=== PATIENT | male | born 1940 | race Caucasian/White ===

== ENCOUNTER → 2017-12-11 17:08 | Outpatient (CLI) | payer MEDICARE, OTHER, SELFPAY ==
[2017-12-11 17:47] LABS: Add Manual Diff / Slide Review NO; Basophils Percent Auto 1.3 % (0-2); Eosinophils Percent Auto 6.9 % (2-4); Hematocrit 43.2 % (41-53); Hemoglobin 14.6 g/dL (13.5-17.5); Lymphocytes Percent Auto 27.9 % (25-40); Mean Corpuscular HGB Conc 33.8 % (30-36); Mean Corpuscular Hemoglobin 28.6 PG (26-34); Mean Corpuscular Volume 84.6 fL (80-100); Monocytes Percent Auto 7.6 % (3-14); Neutrophils Absolute Auto 3700 /uL (3000-5900); Neutrophils Percent Auto 56.3 % (50-75); Platelet Count 195 X10^3/uL (150-400); Red Blood Cell Count 5.11 X10^6/uL (4.5-5.9); White Blood Cell Count 6.6 X10^3/uL (4.5-11.0)
[2017-12-11 18:03] LABS: Alanine Aminotransferase 26 IU/L (21-72); Albumin 3.8 g/dL (3.5-5.0); Albumin Globulin Ratio 1.1 (1.0-2.8); Alkaline Phosphatase 77 U/L (38-126); Aspartate Aminotransferase 17 IU/L (17-59); Bilirubin Total 0.4 mg/dL (0.2-1.3); Blood Urea Nitrogen 21 mg/dL (9-20); Calcium 8.9 mg/dL (8.4-10.2); Carbon Dioxide 29 mmol/L (22-32); Chloride 103 mmol/L (98-107); Estimated Glomerular Filt Rate > 60.0 mL/min (>60); Globulin 3.4 g/dL (1.7-4.1); Glucose 82 mg/dL (80-110); HEMOLYSIS < 15 (0-50); Potassium 4.7 mmol/L (3.4-5.1); Sodium 140 mmol/L (137-145); Total Protein 7.2 g/dL (6.3-8.2)
[2017-12-11 18:31] LABS: TSH w/ Reflex to FT4 1.38 uIU/mL (0.47-4.68)
[2017-12-13 20:41] LABS: 18 kD IgG Band Nonreactive; 23 kD IgG Band Nonreactive; 28 kD IgG Band Nonreactive; 30 kD IgG Band Nonreactive; 39 kD IgG Band Nonreactive; 41 kD IgG Bands Reactive; 45 kD IgG Band Nonreactive; 58 kD IgG Band Nonreactive; 66 kD IgG Band Reactive; 93 kD IgG Bands Nonreactive
== END ==
PROVIDERS: Family Provider Family Medicine; PCP Family Medicine; Visit Provider Family Medicine
DX: R53.83 Other fatigue (principal); W57.XXXA Bitten or stung by nonvenomous insect and other nonvenomous arthropods, initial encounter
CPT/HCPCS: 36415; 80053; 84443; 85025; 86618

== ENCOUNTER 2018-08-14 14:31 | Inpatient (IN) | payer MEDICARE, OTHER, SELFPAY ==
[2018-08-14 14:46] VITALS: BP 106/55; PULSE 65; RESP 15; TEMP 36.7; O2SAT 100; BMI 24.1
--- NOTE | 2018-08-14 14:59 | DI.CT.S_ITS ---
PROCEDURE: CT HEAD/BRAIN WO CON INDICATIONS: confusion for 1 week TECHNIQUE: Noncontrast 4.5 mm thick angled axial sections acquired from the foramen magnum to the vertex, with coronal and sagittal reformats. For radiation dose reduction, the following was used: automated exposure control, adjustment of mA and/or kV according to patient size. COMPARISON: [facility], CT, HEAD WITHOUT CONTRAST, 03/05/2013, 13:07. FINDINGS: Image quality: Excellent. CSF spaces: Basal cisterns are patent. No extra-axial fluid collections. Ventricles are normal in size and shape. Brain: No midline shift. No intracranial masses or hemorrhage. [place]-white matter interface is normal except in the right temporal region where a region of low attenuation that is ovoid can be seen measuring up to 5.8 cm AP, 3.1 cm transverse and 3.6 cm craniocaudad, quite sharply demarcated. Skull and face: Calvarium and visualized facial bones are intact, without suspicious lesions. Sinuses: Visualized sinuses and mastoids are clear. 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 Dictated by: Sampson Noel M.D. on 08/14/2018 at 15:19 Approved by: Sampson Noel M.D. on 08/14/2018 at 15:28
[2018-08-14 15:30] LABS: Bacteria Urine None Seen; WBC Urine None Seen (0-5/HPF)
[2018-08-14 15:49] LABS: Amorphous Sediment Urine 1+; Culture Indicated Urine Cult Not Indicated; RBC Urine 1-5/HPF (0-5/HPF)
[2018-08-14 15:59] VITALS: BP 114/51; PULSE 58; RESP 16; O2SAT 100
[2018-08-14] MEDS: ASPIRIN 81 MG TAB 324 MG PO (16:00)
[2018-08-14 16:03] LABS: Add Manual Diff / Slide Review NO; Basophils Absolute Auto 0 /uL (0-100); Basophils Percent Auto 0.5 % (0-2); Eosinophils Absolute Auto 100 /uL (0-450); Eosinophils Percent Auto 1.2 % (2-4); Hematocrit 34.6 % (41-53); Hemoglobin 11.3 g/dL (13.5-17.5); Lymphocytes Absolute Auto 1300 /uL (1100-4500); Lymphocytes Percent Auto 15.3 % (25-40); Mean Corpuscular HGB Conc 32.6 % (30-36); Mean Corpuscular Hemoglobin 26.5 PG (26-34); Mean Corpuscular Volume 81.1 fL (80-100); Monocytes Absolute Auto 800 /uL (0-900); Monocytes Percent Auto 9.7 % (3-14); Neutrophils Absolute Auto 6100 /uL (1500-7000); Neutrophils Percent Auto 73.3 % (50-75); Platelet Count 193 X10^3/uL (150-400); Red Blood Cell Count 4.26 X10^6/uL (4.5-5.9); Red Cell Distribution Width 14.1 % (11.6-14.8); White Blood Cell Count 8.4 X10^3/uL (4.5-11.0)
[2018-08-14 16:03] LABS: Urine Amphetamines Negative (Negative); Urine Barbiturates Negative (Negative); Urine Benzodiazepines Negative (Negative); Urine Cocaine Negative (Negative); Urine MDMA Negative (Negative); Urine Methadone Negative (Negative); Urine Methamphetamines Negative (Negative); Urine Morphine/Opi cutoff 2000 Negative (Negative); Urine Oxycodone Negative (Negative); Urine Phencyclidine Negative (Negative); Urine Tetrahydrocannabinol Negative (Negative); Urine Tricyclic Antidepressant Negative (Negative)
[2018-08-14 16:09] LABS: INR 1.1 (0.9-1.3); Prothrombin Time 13.1 SECONDS (10.1-12.7)
--- NOTE | 2018-08-14 16:11 | ED.NEUROSD ---
HPI - Neuro Symptoms/Deficit General Chief Complaint: Neuro Symptoms/Deficit Stated Complaint: Headaches x1 week Time Seen by Provider: 08/14/18 15:35 Source: patient and family Mode of arrival: ambulatory Limitations: no limitations History of Present Illness HPI Narrative: patient is a 78-year-old male who presents by his with a week's worth of headaches. She has noticed some strange behavior. He stares off into space without blinking. He has had some erratically driving which is extremely unusual. She has not noticed any slurring of speech facial drooping difficulty walking or extremity weakness. He has not had fever he has been chilled but he has been chilled for number of months. No other symptoms. His states that this is extremely abnormal behavior for him. patient has no complaints saying he was brought here against his will. Although he is cooperative for exam and answers questions. On Anticoagulants: No Related Data Home Medications Medication Instructions Recorded Confirmed aspirin 243 mg PO BEDTIME #30 tab 02/06/16 08/14/18 fluticasone 1 spray INTRANASAL DAILY #0 05/20/17 08/14/18 lisinopril 20 mg tablet 20 mg PO DAILY 12/04/17 08/14/18 Ventolin HFA 1 puff INH Q4HP PRN 08/14/18 08/14/18 albuterol sulfate 1 puff INHALATION PRN PRN 08/14/18 08/14/18 ibuprofen 1 dose PO PRN PRN 08/14/18 08/14/18 montelukast [Singulair] 10 mg PO DAILY 08/14/18 08/14/18 Allergies Allergy/AdvReac Type Severity Reaction Status Date / Time morphine Allergy Severe TRIGGERS Verified 08/14/18 14:46 INSULIN PRODUCTION azithromycin Allergy Mild N/V Verified 08/14/18 14:46 cefuroxime Allergy Mild N/V Verified 08/14/18 14:46 etodolac Allergy Mild N/V Verified 08/14/18 14:46 Penicillins Allergy Mild N/V Verified 08/14/18 14:46 piroxicam Allergy Mild N/V Verified 08/14/18 14:46 CLASS: 28:04 - General Allergy Unknown SLOW Uncoded 12/04/17 11:19 Anesthetics RECOVERY Review of Systems Review of Systems ROS Unobtainable: All systems reviewed & are unremarkable except as noted in HPI and below Constitutional Denies chills, Denies fever(s), Denies lethargy and Denies weakness Cardiovascular Denies chest pain, Denies irregular heart rhythm, Denies lightheadedness, Denies palpitations, Denies dyspnea, Denies dyspnea on exertion and Denies orthopnea Respiratory Denies cough, Denies dyspnea, Denies dyspnea on exertion and Denies wheezing Gastrointestinal Gastrointestinal: Denies abdominal pain, Denies change in bowel habits, Denies diarrhea, Denies nausea and Denies vomiting Musculoskeletal Denies back pain, Denies muscle weakness, Denies numbness and Denies tingling Integumentary/Breasts Denies pruritus, Denies erythema, Denies rash and Denies wounds Neurologic Reports as per HPI, Reports behavioral changes, Denies numbness, Denies tingling and Denies weakness Psychiatric Reports behavioral changes Endocrine Denies palpitations Allergic/Immunologic Denies wheezing [facility] Medical History Essential hypertension (Chronic) Benign non-nodular prostatic hyperplasia without lower urinary tract symptoms (Chronic 05/02/15) Gastroesophageal reflux disease without esophagitis (Chronic 05/02/15) Simple chronic bronchitis (Chronic 05/02/15) Dysphagia (Chronic 10/16/15) Neck pain (Chronic 10/16/15) Erectile dysfunction (Chronic 03/14/17) Nonrheumatic aortic valve insufficiency (Chronic 03/14/17) Pure hypercholesterolemia (Chronic 03/14/17) Surgical History History of lithotripsy Status post rhinoplasty Status post rotator cuff repair Status post transurethral resection of prostate Family History Brother Age: 69 Crohn's disease without complication, unspecified gastrointestinal tract location Sister Age: 81 Cancer Sister Age: 80 Cancer Social History Smoking Status: Former smoker Family History Brother Age: 69 Crohn's disease without complication, unspecified gastrointestinal tract location Sister Age: 81 Cancer Sister Age: 80 Cancer Social History Smoking Status: Former smoker Exam Initial Vital Signs Initial Vital Signs: Vital Signs Temperature 98.1 F 08/14/18 14:46 Pulse Rate 65 08/14/18 14:46 Respiratory Rate 15 08/14/18 14:46 Blood Pressure 106/55 L 08/14/18 14:46 Pulse Oximetry 100 08/14/18 14:46 Const General: cooperative and well developed Nutritional Appearance: well nourished Orientation: alert, awake, oriented x3 and not confused [facility] Head: normal to inspection Eyes General: appearance normal, both eyes and all related structures Neck Neck: normal visual inspection, trachea midline, No lymphadenopathy, No midline deformity and No JVD Lymphatic: No lymphedema Chest Chest: normal inspection of the chest Resp Effort & Inspection: normal respiratory effort Cardio Rate: regular rate Rhythm: regular rhythm Heart Sounds: S1 normal and S2 normal GI Inspection: non-distended Palpation: soft, no hepatosplenomegaly, No guarding, No pulsatile mass and No tender Auscultation: normal bowel sounds Skin General: no rashes or lesions noted, No jaundice and No petechiae Neuro General: alert, oriented x3, gait normal and no focal motor deficits Speech: speech normal Scores NIH Stroke Scale Level of Conciousness: Alert, keenly responsive Ask month/age: Answers both questions correctly. Open/close eyes, close hand: Performs both tasks correctly Best gaze horizontal: Normal Visual mendiola: No visual loss Facial palsy: Normal symetrical movement Left arm drift: No drift for full 10 sec Right arm drift: No drift for full 10 sec Left leg drift: No drift for full 10 sec Right leg drift: No drift for full 10 sec Limb ataxia: Absent Sensory on face/arms/legs: Normal, no sensory loss Best language: No aphasia, normal Dysarthria: Normal Extinction or inattention: No abnormality Total NIH Stroke scale score: 0 Course Orders Ordered: ED Orders 08/14/18 14:59 CT head/brain wo con Stat 08/14/18 15:03 Urine Microscopic Stat 08/14/18 15:35 EKG-12 Lead Stat 08/14/18 15:56 Complete Blood Count AUTO DIFF Stat Comprehensive Metabolic Panel Stat Partial Thromboplastin Time Stat Prothrombin Time INR Stat 08/14/18 15:57 Urine Drug Screen, Rapid Stat Sodium Chloride (Normal Saline 0.9%) 1,000 mls @ 150 mls/hr IV CONT ELIJAH Last Admin: 08/14/18 17:13 Dose: 150 mls/hr Discontinued Medications Aspirin (Aspirin Chew) 324 mg PO NOW ONE Stop: 08/14/18 17:56 Last Admin: 08/14/18 16:00 Dose: 324 mg Vital Signs - 8 hr 08/14/18 14:46 08/14/18 15:59 08/14/18 17:23 Temperature 98.1 F Pulse Rate 65 58 L 59 L Respiratory Rate 15 16 13 Blood Pressure 106/55 L 107/52 L Blood Pressure [Right Arm] 114/51 L Pulse Oximetry 100 100 100 08/14/18 18:55 Temperature 97.3 F L Pulse Rate 55 L Respiratory Rate 18 Blood Pressure 126/52 L Blood Pressure [Right Arm] Pulse Oximetry 97 MDM - Neuro Symptoms/Deficit Lab Data Attestation: I reviewed the patient's lab results. Result diagrams: 08/14/18 15:56 08/14/18 15:56 Lab Results 08/14/18 08/14/18 08/14/18 Range/Units 15:03 15:56 15:56 WBC 8.4 (4.5-11.0) X10^3/uL RBC 4.26 L (4.5-5.9) X10^6/uL Hgb 11.3 L (13.5-17.5) g/dL Hct 34.6 L (41-53) % MCV 81.1 (80-100) fL MCH 26.5 (26-34) PG MCHC 32.6 (30-36) % RDW 14.1 (11.6-14.8) % Plt Count 193 (150-400) X10^3/uL Neut % (Auto) 73.3 (50-75) % Lymph % (Auto) 15.3 L (25-40) % [place] % (Auto) 9.7 (3-14) % Eos % (Auto) 1.2 L (2-4) % Baso % (Auto) 0.5 (0-2) % Neut # (Auto) 6100 (6264-5371) /uL Lymph # (Auto) 1300 (5831-7962) /uL [place] # (Auto) 800 (0-900) /uL Eos # (Auto) 100 (0-450) /uL Baso # (Auto) 0 (0-100) /uL PT 13.1 H (10.1-12.7) SECONDS INR 1.1 (0.9-1.3) APTT 35 (26.4-36.2) SECONDS Sodium (137-145) mmol/L Potassium (3.4-5.1) mmol/L Chloride (98-107) mmol/L Carbon Dioxide (22-32) mmol/L BUN (9-20) mg/dL Creatinine (0.66-1.25) mg/dL Estimated GFR (>60) mL/min BUN/Creatinine Ratio (6-22) Glucose (80-110) mg/dL Calcium (8.4-10.2) mg/dL Total Bilirubin (0.2-1.3) mg/dL AST (17-59) IU/L ALT (21-72) IU/L Alkaline Phosphatase (38-126) U/L Total Protein (6.3-8.2) g/dL Albumin (3.5-5.0) g/dL Globulin (1.7-4.1) g/dL Albumin/Globulin Ratio (1.0-2.8) Urine RBC 1-5/hpf (0-5/HPF) Urine WBC None seen (0-5/HPF) Amorphous Sediment 1+ Urine Bacteria None seen (None) Ur Culture Indicated? Cult not indicated Urine Opiates Screen (Negative) Ur Oxycodone Screen (Negative) Urine Methadone Screen (Negative) Ur Barbiturates Screen (Negative) U Tricyclic Antidepress (Negative) Ur Phencyclidine Scrn (Negative) Ur Amphetamines Screen (Negative) U Methamphetamines Scrn (Negative) Ur MDMA Scrn (Ecstasy) (Negative) U Benzodiazepines Scrn (Negative) Urine Cocaine Screen (Negative) U Marijuana (THC) Screen (Negative) 08/14/18 08/14/18 Range/Units 15:56 15:57 WBC (4.5-11.0) X10^3/uL RBC (4.5-5.9) X10^6/uL Hgb (13.5-17.5) g/dL Hct (41-53) % MCV (80-100) fL MCH (26-34) PG MCHC (30-36) % RDW (11.6-14.8) % Plt Count (150-400) X10^3/uL Neut % (Auto) (50-75) % Lymph % (Auto) (25-40) % [place] % (Auto) (3-14) % Eos % (Auto) (2-4) % Baso % (Auto) (0-2) % Neut # (Auto) (5397-5972) /uL Lymph # (Auto) (5564-8393) /uL [place] # (Auto) (0-900) /uL Eos # (Auto) (0-450) /uL Baso # (Auto) (0-100) /uL PT (10.1-12.7) SECONDS INR (0.9-1.3) APTT (26.4-36.2) SECONDS Sodium 134 L (137-145) mmol/L Potassium 4.5 (3.4-5.1) mmol/L Chloride 101 (98-107) mmol/L Carbon Dioxide 26 (22-32) mmol/L BUN 26 H (9-20) mg/dL Creatinine 1.20 (0.66-1.25) mg/dL Estimated GFR 58.6 L (>60) mL/min BUN/Creatinine Ratio 21.7 (6-22) Glucose 104 (80-110) mg/dL Calcium 8.7 (8.4-10.2) mg/dL Total Bilirubin 0.4 (0.2-1.3) mg/dL AST 18 (17-59) IU/L ALT 29 (21-72) IU/L Alkaline Phosphatase 60 (38-126) U/L Total Protein 7.6 (6.3-8.2) g/dL Albumin 3.4 L (3.5-5.0) g/dL Globulin 4.2 H (1.7-4.1) g/dL Albumin/Globulin Ratio 0.8 L (1.0-2.8) Urine RBC (0-5/HPF) Urine WBC (0-5/HPF) Amorphous Sediment Urine Bacteria (None) Ur Culture Indicated? Urine Opiates Screen Negative (Negative) Ur Oxycodone Screen Negative (Negative) Urine Methadone Screen Negative (Negative) Ur Barbiturates Screen Negative (Negative) U Tricyclic Antidepress Negative (Negative) Ur Phencyclidine Scrn Negative (Negative) Ur Amphetamines Screen Negative (Negative) U Methamphetamines Scrn Negative (Negative) Ur MDMA Scrn (Ecstasy) Negative (Negative) U Benzodiazepines Scrn Negative (Negative) Urine Cocaine Screen Negative (Negative) U Marijuana (THC) Screen Negative (Negative) Urine Dip Bedside Urine Glucose Negative Bedside Urine Bilirubin - Negative Bedside Urine Ketone - Negative Urine Specific [place] 1.015 Bedside Urine Occult Blood + Bedside Urine pH 6.0 Bedside Urine Protein - Negative Bedside Urine Urobilinogen - Negative Bedside Urine Nitrite - Negative Bedside Urine Leukocytes - Negative Esterase Imaging Data CT scan - head: Radiologist's impression: PROCEDURE: CT HEAD/BRAIN WO CON INDICATIONS: confusion for 1 week TECHNIQUE: Noncontrast 4.5 mm thick angled axial sections acquired from the foramen magnum to the vertex, with coronal and sagittal reformats. For radiation dose reduction, the following was used: automated exposure control, adjustment of mA and/or kV according to patient size. COMPARISON: [facility], CT, HEAD WITHOUT CONTRAST, 03/05/2013, 13:07. FINDINGS: Image quality: Excellent. CSF spaces: Basal cisterns are patent. No extra-axial fluid collections. Ventricles are normal in size and shape. Brain: No midline shift. No intracranial masses or hemorrhage. [place]-white matter interface is normal except in the right temporal region where a region of low attenuation that is ovoid can be seen measuring up to 5.8 cm AP, 3.1 cm transverse and 3.6 cm craniocaudad, quite sharply demarcated. Skull and face: Calvarium and visualized facial bones are intact, without suspicious lesions. Sinuses: Visualized sinuses and mastoids are clear. 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 Dictated by: Sampson Noel M.D. on 08/14/2018 at 15:19 ECG Data Attestation: I personally reviewed and interpreted this ECG as follows: Prior ECG tracings: available for review Interpretation: Sinus rhythm rate [address] changes no T-wave inversions similar to previous EKG MDM Narrative Medical decision making narrative: patient's head CT does reveal subacute stroke. This likely happened within the last 1 week. Patient has no prior history of CVA he is not currently on prevention medications. Dr. carlson has been updated on patient's symptoms test results and happily accepts patient Discharge Plan Departure Patient Disposition: Admitted As Inpatient Clinical Impression: CVA (cerebral vascular accident) Qualifiers: CVA mechanism: unspecified Qualified Code(s): I63.9 - Cerebral infarction, unspecified Discharge Date/Time: 08/14/18 18:29 Interventions: ED Discharge Assessment Last Done: 08/14/18 17:23 Admit Date/Time: 08/14/18 18:27 Admit Provider: Mary Ellen Carlson
[2018-08-14 16:12] LABS: PTT Partial Thromboplastin Tim 35 SECONDS (26.4-36.2)
[2018-08-14 16:14] LABS: Alanine Aminotransferase 29 IU/L (21-72); Albumin 3.4 g/dL (3.5-5.0); Albumin Globulin Ratio 0.8 (1.0-2.8); Alkaline Phosphatase 60 U/L (38-126); Aspartate Aminotransferase 18 IU/L (17-59); BUN Creatinine Ratio 21.7 (6-22); Bilirubin Total 0.4 mg/dL (0.2-1.3); Blood Urea Nitrogen 26 mg/dL (9-20); Calcium 8.7 mg/dL (8.4-10.2); Carbon Dioxide 26 mmol/L (22-32); Chloride 101 mmol/L (98-107); Estimated Glomerular Filt Rate 58.6 mL/min (>60); Globulin 4.2 g/dL (1.7-4.1); Glucose 104 mg/dL (80-110); HEMOLYSIS < 15 (0-50); Potassium 4.5 mmol/L (3.4-5.1); Sodium 134 mmol/L (137-145); Total Protein 7.6 g/dL (6.3-8.2)
[2018-08-14] MEDS: SODIUM CHLORIDE 0.9% 1,000 ML 150 ML IV (17:13)
[2018-08-14 17:23] VITALS: BP 107/52; PULSE 59; RESP 13; O2SAT 100
[2018-08-14 18:55] VITALS: BP 126/52; PULSE 55; RESP 18; TEMP 36.3; O2SAT 97
--- NOTE | 2018-08-14 19:10 | P.HP_ITS ---
History of Present Illness Date Patient Seen: 08/14/18 Time Patient Seen: 18:45 Chief complaint: Headaches x1 week Narrative: PMH: HTN, AV insufficiency (non-rheumatic), h/o syncope, chronic bronchitis, HLD, GERD, dysphasia, BPH, h/o recurrent nephrolithiasis, prior insulinoma ? PSH: lithotripsy, rhinoplasty, rotator cuff repair, TURP HPI is obtained from the patient and review of records. Patient is not a good historian. Attempted to call family, but no one is available.\ Patient presents with a one-week history of a headache. Localized to the frontal aspect of the head and at times felt behind the eyes. Head discomfort is characterized as someone is sticking a screw through the head. Patient reports experiencing hypoglycemia, tremulousness, chills, Patient History Medical History Essential hypertension (Chronic) Benign non-nodular prostatic hyperplasia without lower urinary tract symptoms (Chronic 05/02/15) Gastroesophageal reflux disease without esophagitis (Chronic 05/02/15) Simple chronic bronchitis (Chronic 05/02/15) Dysphagia (Chronic 10/16/15) Neck pain (Chronic 10/16/15) Erectile dysfunction (Chronic 03/14/17) Nonrheumatic aortic valve insufficiency (Chronic 03/14/17) Pure hypercholesterolemia (Chronic 03/14/17) Surgical History History of lithotripsy Status post rhinoplasty Status post rotator cuff repair Status post transurethral resection of prostate Family History Brother Age: 69 Crohn's disease without complication, unspecified gastrointestinal tract location Sister Age: 81 Cancer Sister Age: 80 Cancer Social History household members: spouse Smoking Status: Former smoker Family & Social History Family History Brother Age: 69 Crohn's disease without complication, unspecified gastrointestinal tract location Sister Age: 81 Cancer Sister Age: 80 Cancer Safety & Behavioral: Feels Safe in Current Yes Environment Been Physically Hurt or No Threatened By a Person Tobacco & Substance use: Smoking Status Former smoker alcohol intake frequency holiday/special occasion Substance Use Type does not use Meds Home Medications Medication Instructions Recorded Confirmed Type aspirin 243 mg PO BEDTIME #30 tab 02/06/16 08/14/18 History fluticasone 1 spray INTRANASAL DAILY #0 05/20/17 08/14/18 History lisinopril 20 mg tablet 20 mg PO DAILY 12/04/17 08/14/18 History Ventolin HFA 1 puff INH Q4HP PRN 08/14/18 08/14/18 History albuterol sulfate 1 puff INHALATION PRN PRN 08/14/18 08/14/18 History ibuprofen 1 dose PO PRN PRN 08/14/18 08/14/18 History montelukast [Singulair] 10 mg PO DAILY 08/14/18 08/14/18 History Allergies Allergy/AdvReac Type Severity Reaction Status Date / Time morphine Allergy Severe TRIGGERS Verified 08/14/18 14:46 INSULIN PRODUCTION azithromycin Allergy Mild N/V Verified 08/14/18 14:46 cefuroxime Allergy Mild N/V Verified 08/14/18 14:46 etodolac Allergy Mild N/V Verified 08/14/18 14:46 Penicillins Allergy Mild N/V Verified 08/14/18 14:46 piroxicam Allergy Mild N/V Verified 08/14/18 14:46 CLASS: 28:04 - General Allergy Unknown SLOW Uncoded 12/04/17 11:19 Anesthetics RECOVERY Review of Systems Review of Systems All systems reviewed & are unremarkable except as noted in HPI and below Exam Vital Signs (past 8 hours): - 08/14/18 14:46 08/14/18 15:59 08/14/18 17:23 Temperature 98.1 F Pulse Rate 65 58 L 59 L Respiratory Rate 15 16 13 Blood Pressure 106/55 L 107/52 L Blood Pressure [Right Arm] 114/51 L Pulse Oximetry 100 100 100 08/14/18 18:55 Temperature 97.3 F L Pulse Rate 55 L Respiratory Rate 18 Blood Pressure 126/52 L Blood Pressure [Right Arm] Pulse Oximetry 97 Oxygen Delivery Method Room Air Narrative Exam Narrative: Constitutional: memory impaired, restless, cooperative Neurologic: Alert and awake. GCS15. Follows commands. NIHSS 0, however there is very slight LLE weakness Romberg positive, gait unsteady Head: NC, AT Eyes: PERRL, EOMI, Ears: external ears normal, no otorrhea Nose: external nose normal, no rhinorrhea or epistaxis Throat: dry MM, oropharynx w/o exudate Neck: no masses, lymphadenopathy, or JVD Chest / Respiratory: Diminished Heart / CV: S1S2, no murmur Abdomen / GI: round, NT, ND, + BS, no organomegaly : no suprapubic tenderness, no CVA Peripheral / Vascular: warm to touch, DP and PT pulses palpable, no edema Musc: full ROM of upper and lower extremities, adequate muscle tone and bulk Skin: no ecchymosis or suspicious lesions / ulcers Objective Labs Result Diagrams: 08/14/18 15:56 08/14/18 15:56 Labs: Laboratory Results - last 24 hr 08/14/18 08/14/18 08/14/18 15:03 15:56 15:56 WBC 8.4 RBC 4.26 L Hgb 11.3 L Hct 34.6 L MCV 81.1 MCH 26.5 MCHC 32.6 RDW 14.1 Plt Count 193 Neut % (Auto) 73.3 Lymph % (Auto) 15.3 L [place] % (Auto) 9.7 Eos % (Auto) 1.2 L Baso % (Auto) 0.5 Neut # (Auto) 6100 Lymph # (Auto) 1300 [place] # (Auto) 800 Eos # (Auto) 100 Baso # (Auto) 0 PT 13.1 H INR 1.1 APTT 35 Sodium Potassium Chloride Carbon Dioxide BUN Creatinine Estimated GFR BUN/Creatinine Ratio Glucose Calcium Total Bilirubin AST ALT Alkaline Phosphatase Total Protein Albumin Globulin Albumin/Globulin Ratio Urine RBC 1-5/hpf Urine WBC None seen Amorphous Sediment 1+ Urine Bacteria None seen Ur Culture Indicated? Cult not indicated Urine Opiates Screen Ur Oxycodone Screen Urine Methadone Screen Ur Barbiturates Screen U Tricyclic Antidepress Ur Phencyclidine Scrn Ur Amphetamines Screen U Methamphetamines Scrn Ur MDMA Scrn (Ecstasy) U Benzodiazepines Scrn Urine Cocaine Screen U Marijuana (THC) Screen 08/14/18 08/14/18 15:56 15:57 WBC RBC Hgb Hct MCV MCH MCHC RDW Plt Count Neut % (Auto) Lymph % (Auto) [place] % (Auto) Eos % (Auto) Baso % (Auto) Neut # (Auto) Lymph # (Auto) [place] # (Auto) Eos # (Auto) Baso # (Auto) PT INR APTT Sodium 134 L Potassium 4.5 Chloride 101 Carbon Dioxide 26 BUN 26 H Creatinine 1.20 Estimated GFR 58.6 L BUN/Creatinine Ratio 21.7 Glucose 104 Calcium 8.7 Total Bilirubin 0.4 AST 18 ALT 29 Alkaline Phosphatase 60 Total Protein 7.6 Albumin 3.4 L Globulin 4.2 H Albumin/Globulin Ratio 0.8 L Urine RBC Urine WBC Amorphous Sediment Urine Bacteria Ur Culture Indicated? Urine Opiates Screen Negative Ur Oxycodone Screen Negative Urine Methadone Screen Negative Ur Barbiturates Screen Negative U Tricyclic Antidepress Negative Ur Phencyclidine Scrn Negative Ur Amphetamines Screen Negative U Methamphetamines Scrn Negative Ur MDMA Scrn (Ecstasy) Negative U Benzodiazepines Scrn Negative Urine Cocaine Screen Negative U Marijuana (THC) Screen Negative Assessment & Plan Assessment & Plan narrative: Subacute CVA DDx: TIA vs hypoglycemia vs infection vs drug intoxication neuroglycopenic symptoms (confusion, unusual behavior) and sympatho-adrenal (palpitations, diaphoresis, and tremulousness) CT Head: Subacute appearing stroke involving the right temporal brain parenchyma causing a region of low attenuation measuring up to 5.6 x 3.1 x 3.6, without associated hemorrhage or significant mass effect. - Tele and SpO2 continuous monitoring - VS and neuro-checks per protocol - Make patient NPO, POC glu Q2H, monitoring for hypoglycemia and - MR protocol - insulin, insulin anti-bodies, and c-peptide re: eval for insulinoma - Echo - IVF Acute headache, intractable 2/2 cerebrovascular event vs migraine vs hypoglycemia - Toradol, compazine Hypoglycemia, acute vs chronic ?, hx insulinoma ? - check insulin, pro insulin and C-peptide - consider abdominal imaging Essential HTN, controlled chronic condition, resume RAILCAR SWITCHER anti-hypertensive agents w/ hold parameter GERD, controlled, resume PPI
[2018-08-14 19:30] VITALS: BMI 24.1
[2018-08-14 20:54] LABS: Alanine Aminotransferase 28 IU/L (21-72); Albumin 3.2 g/dL (3.5-5.0); Albumin Globulin Ratio 0.8 (1.0-2.8); Alkaline Phosphatase 54 U/L (38-126); Aspartate Aminotransferase 16 IU/L (17-59); Bilirubin Total 0.4 mg/dL (0.2-1.3); Bilirubin Unconjugated 0.2 mg/dL (0.0-1.1); Globulin 3.8 g/dL (1.7-4.1); HEMOLYSIS < 15 (0-50)
[2018-08-14 20:56] LABS: Hemoglobin A1C% w Est Avg Glu 5.3 % (4.0-6.0)
[2018-08-14 21:08] LABS: Troponin I < 0.012 ng/mL (0.01-0.034)
[2018-08-14 21:13] LABS: Ketones (Beta-Hydroxybutyrate) 0.08 mmol/L (<0.27)
[2018-08-14 21:43] LABS: Thyroid Stimulating Hormone 1.83 uIU/mL (0.47-4.68)
[2018-08-15] VITALS (7 sets, daily range): BP systolic 104–141; BP diastolic 54–69; PULSE 52–78; RESP 16–20; TEMP 36.6–37.4; O2SAT 98–100
[2018-08-15] MEDS: SODIUM CHLORIDE 0.9% 1,000 ML 80 ML IV (03:51)
[2018-08-15] MEDS: KETOROLAC 15 MG/ML VIAL IV (04:46)
[2018-08-15] MEDS: ACETAMINOPHEN 325 MG TABLET 650 MG PO (04:47)
--- NOTE | 2018-08-15 06:00 | DI.ECHO.S_ITS ---
[facility] +---------+ : : [address] : [address] : : : : [id number] : : : : Phone: [phone]+ Echocardiogram Report + + :Name: MELODY ARMAS Study Date: 08/15/2018 Height: 72 in : :[facility] Exam Location: [facility] Weight: 165 lb : : Gender: Male BSA: 2.0 m2 : :: 1940 Age: 78 yrs BP: 105/57 mmHg: :Reason For Study: CVA : : Performed By: Caio Davis : :Referring: SEBASTIAN TEJADA : + + Interpretation Summary A highly mobile, irregularly shaped structure is noted on the ventricular side of the aortic valve, attached to the left coronary cusp.This measures approximately 1.0 cm x 0.7 cm. 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 This is new compared to prior study on 06/13/[address] [facility] time a slight nodular thickening of this cusp could be seen. The critical findings were communicated to the primary team. Procedure: A two-dimensional transthoracic echocardiogram with color flow and Doppler was performed. The study quality was technically good. Comparison is made with the echocardiogram of 06/13/16. The patient was in normal sinus rhythm during the exam. Left Ventricle: The left ventricle is normal in size. There is normal left ventricular wall thickness. The ejection fraction is estimated to be 60-65%. There are no focal wall motion abnormalities. Diastolic parameters suggest a relaxation abnormality of the left ventricle, consistent with probable normal filling pressures. Right Ventricle: The right ventricle is at the upper limits of normal in size. The right ventricular systolic function is normal. Atria: The left atrium is severely dilated. The right atrium is moderate to severely dilated. Injection of contrast documented no interatrial shunt. Mitral Valve: The mitral valve is normal in structure and function. There is trace mitral regurgitation. Aortic Valve: The aortic valve is trileaflet. The aortic valve opens well. A highly mobile, irregularly shaped structure is noted on the ventricular side of the aortic valve, attached to the left coronary cusp.This measures approximately 1.0 cm x 0.7 cm. 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 There is moderate aortic regurgitation. Tricuspid Valve: The tricuspid valve is normal in structure and function. There is trace tricuspid regurgitation. The right ventricular systolic pressure is estimated to be at least 17 mmHg based on an estimated right atrial pressure of 3 mm Hg. Pulmonic Valve: The pulmonic valve is normal in structure and function. There is trace pulmonic regurgitation. Great Vessels: The aortic root is normal size. The ascending aorta is mildly enlarged. The pulmonary artery is normal size. The IVC is of normal diameter and collapses greater than 50% with a sniff. This suggests a low right atrial pressure of 3 mm Hg. Pericardium/ Pleura There is no pericardial effusion. There is no pleural effusion. MMode/2D Measurements & Calculations LVIDd: 5.7 cm LVOT diam: 2.6 cm LVIDs: 3.9 cm Ao root diam: 3.8 cm FS: 31.3 % asc Aorta Diam: 3.8 cm EPSS: 0.96 cm Ao Arch Diam (Prox Trans): 3.2 cm IVSd: 0.91 cm LVPWd: 0.77 cm LV cody. diameter/BSA (cm/m^2): 2.9 LV sys. diameter/BSA (cm/m^2): 2.0 LA dimension: 4.3 cm RA long axis: 5.5 cm LA A2 area: 29.7 cm2 RA area: 22.6 cm2 LA A4 area: 28.8 cm2 RA vol: 78.6 ml LA length (vol): 7.1 cm RA : 40.0 ml/m2 LA vol: 101.6 ml IVC diam: 1.8 cm LA vol index: 51.8 ml/m2 RVD1 (basal): 4.8 cm RVD2 (mid): 3.9 cm Doppler Measurements & Calculations Ao V2 max: 156.2 cm/sec LVOT Max Murali: 134.6 cm/sec Ao V2 mean: 117.0 cm/sec LV V1 max P.2 mmHg Ao max P.8 mmHg LV V1 VTI: 30.8 cm Ao mean P.9 mmHg PALBO(I,D): 4.4 cm2 Ao V2 VTI: 37.6 cm PABLO(V,D): 4.7 cm2 sev ratio: 0.82 PABLO indexed to BSA (cm^2/m^2): 2.3 AI P1/2t: 653.9 msec AI dec slope: 173.6 cm/sec2 MV E max murali: 55.6 cm/sec TR max murali: 189.4 cm/sec MV A max murali: 63.0 cm/sec TR max P.4 mmHg MV E/A: 0.88 PA V2 max: 59.5 cm/sec Med Peak E' Murali: 5.0 cm/sec PA V2 mean: 45.0 cm/sec E/E' med: 11.2 PA mean P.86 mmHg Lat Peak E' Murali: 7.7 cm/sec PA pr(Accel): 26.6 mmHg E/E' lat: 7.2 E/e' average: 9.2 MV dec time: 0.21 sec SV(LVOT): 167.0 ml Electronically signed by: Sujit Kwon M.D. on Reading Physician:08/15/2018 02:31 PM
--- NOTE | 2018-08-15 06:00 | DI.MRI.S_ITS ---
PROCEDURE: MR STROKE Pre- and post-contrast brain MRI, non-contrast brain MR angiogram, pre- and postcontrast neck MR angiogram INDICATIONS: subacute stroke, persistent SOSA, altered neuro status TECHNIQUE: Brain: Noncontrast axial T1 spin echo, axial T2 fast spin echo, sagittal and axial FLAIR, coronal T2 fast spin echo, axial gradient echo, axial diffusion and ADC through the brain. After the administration of contrast, axial 3D VIBE of the cranial vasculature and brain. Brain MRA: Non-contrast 3-D time of flight MR angiogram, with multiple ynhlvsv-bqaaqknti-udakndvdog (MIP) reformats performed. Neck MRA: Axial and sagittal TruFISP through the neck. Coronal dynamic MR angiogram during administration of contrast in the arterial and venous phases, with 3-dimenstional ekspvyz-ynjnxzktj-mosxygtayw (MIP) reformats constructed from subtraction images. COMPARISON: [facility], CT, CT HEAD/BRAIN WO CON, 08/14/2018, 14:57. FINDINGS: Image quality: Limited by patient motion artifact. BRAIN: CSF spaces: Ventricles are normal in size and shape. Basal cisterns are patent. No extra-axial fluid collections. Brain: No intracranial bleeds or mass effects. Restricted diffusion is noted in the right temporal lobe, posterior right insula and the right parietal lobe. Small, punctate foci of restricted diffusion are noted in the frontal lobes bilaterally and the parietal lobes bilaterally. Minimal subcortical white matter chronic microvascular ischemic changes. Mild, diffuse cerebral volume loss. Brainstem appears normal. Normal intravascular flow voids are present. Dural sinuses demonstrate normal postcontrast enhancement. No abnormal intracranial enhancement. Skull and face: Calvarial marrow signal is normal. Orbits appear normal. Sinuses: Left maxillary sinus polyp is noted. Postsurgical changes compatible with prior functional endoscopic sinus surgery noted. The mastoids are clear. BRAIN MR ANGIOGRAM: Anterior circulation: Intracranial internal carotid arteries are normal in size and enhancement. The flow within the paired anterior cerebral arteries is normal and symmetric. The flow within the left middle cerebral artery is normal. There is diminished flow in several M2 branches of the right middle cerebral artery likely related to emboli/thrombus. The anterior communicating artery is seen. No stenoses, occlusions, or aneurysms. Posterior circulation: The visualized portions of the vertebral arteries demonstrate normal caliber, and join to form a normal appearing basilar artery. The flow within the posterior cerebral arteries is normal and symmetric. No stenoses, occlusions, or aneurysms. NECK MR ANGIOGRAM: Carotids: Great vessels demonstrate a conventional anatomy as they arise from the aortic arch. The origins of the common carotid arteries appear patent. The calibers and courses of both common carotid arteries are normal. The bifurcation regions appear normal bilaterally. The internal carotid arteries demonstrate normal course and caliber. Posterior circulation: The origins of the vertebral arteries are poorly visualized due to motion artifact and cannot be evaluated. More superior portions of both vertebral arteries demonstrate normal course and caliber, and join to form a normal appearing basilar artery. Miscellaneous: Subclavian arteries appear patent. Pre-contrast images through the neck show no soft tissue abnormalities. IMPRESSION: BRAIN MRI: 1. Acute infarct involving the right temporal lobe, right insula and right parietal lobe. 2. Acute, small, lacunar infarcts involving the frontal lobes bilaterally in the parietal lobes bilaterally. 3. No intracranial hemorrhage. 4. Mild, diffuse cerebral volume loss. 5. Minimal subcortical white matter chronic microvascular ischemic change. BRAIN MR ANGIOGRAM: 1. Diminished flow in several M2 branches of the right middle cerebral artery concerning for presence of embolus/thrombus. 2. Otherwise, normal MR angiogram of the head. NECK MR ANGIOGRAM: 1. Internal carotid arteries are fully patent. 2. Origins of the vertebral artery is not visualized and cannot be evaluated. Well-visualized portions of the vertebral arteries are fully patent. Dictated by: Marychuy Lowe MD, PhD on 08/15/2018 at 10:41 Approved by: Marychuy Lowe MD, PhD on 08/15/2018 at 10:49
[2018-08-15 08:29] LABS: BUN Creatinine Ratio 21.8 (6-22); Blood Urea Nitrogen 24 mg/dL (9-20); Calcium 8.5 mg/dL (8.4-10.2); Carbon Dioxide 23 mmol/L (22-32); Chloride 105 mmol/L (98-107); Estimated Glomerular Filt Rate > 60.0 mL/min (>60); Glucose 85 mg/dL (80-110); HEMOLYSIS < 15 (0-50); Potassium 4.5 mmol/L (3.4-5.1); Sodium 136 mmol/L (137-145)
[2018-08-15] MEDS: MONTELUKAST 10 MG TABLET PO (09:01)
[2018-08-15] MEDS: ASPIRIN EC 81 MG TABLET PO (09:02)
[2018-08-15] MEDS: PANTOPRAZOLE 40 MG VIAL IV (09:02)
--- NOTE | 2018-08-15 10:03 | PT.IIE ---
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) Dysphagia (Chronic 10/16/15) Neck pain (Chronic 10/16/15) Erectile dysfunction (Chronic 03/14/17) Nonrheumatic aortic valve insufficiency (Chronic 03/14/17) Pure hypercholesterolemia (Chronic 03/14/17) Physical Therapy Inpatient Evaluation/Re-Eval M1 PT/OT-IP Prior Functional Status Start: 08/15/18 11:38 Freq: NEEDED Status: Active Protocol: Document 08/15/18 10:03 AB (Rec: 08/15/18 11:54 AB [id number]) Medical Review Prior Functional Status Medical History Reviewed Yes Communication able to make needs known Mobility and Gait stated that he is independent with all mobilities and ambulation without AD Social History Household Members spouse Living Arrangements House Number of Floors (Floors) Two Floors Number of Stairs To Enter/Railing? 2 steps from the front without rails; 1 step from the garage without rails has 17 steps to bedroom level with bilateral rails but also has a chair lift Home Environment Standard Height Toilet Walk in Shower Employment Status Retired M2 PT-IP Current Condition Start: 08/15/18 11:38 Freq: NEEDED Status: Active Protocol: Document 08/15/18 10:03 AB (Rec: 08/15/18 11:54 AB [id number]) Physical Therapy Current Condition Current Condition Evaluation Date 08/15/18 Treatment Diagnosis CVA; difficulty in walking Onset Date 08/14/18 M3 PT-IP Subjective Start: 08/15/18 11:38 Freq: NEEDED Status: Active Protocol: Document 08/15/18 10:03 AB (Rec: 08/15/18 11:54 AB [id number]) Subjective Physical Therapy Visit Type Type Initial Evaluation Visit Start Time 10:03 Visit Stop Time 10:23 Total Visit Minutes 20 Number of ROUTE SALESPERSON Visits 0 Physical Therapy Visit Comments Patient Comments pt agreeable to do PT Therapy Pain Assessment Pain Present Pain Present Denied Pain M4 PT-IP Mobility and Gait Start: 08/15/18 11:38 Freq: NEEDED Status: Active Protocol: Document 08/15/18 10:03 AB (Rec: 08/15/18 11:54 AB [id number]) PT-Bed Mobility Assessment Supine to Sit Supine to Sit Independent Sit to Supine Sit to Supine Independent PT-Transfer Assessment Sit to and From Stand Sit to and from Stand Standby Assistance Equipment Transfer Assistive Device Gait Belt Gait Assessment Gait Gait Assistance Required: Standby Assistance Contact Guard Assist Distance (Feet) 300 Able to Maintain Weight Bearing Status Yes During Gait Assistive Devices Assistive Device None Gait Belt Orthotic/Prosthetic Devices or Brace: No Factors Limiting Gait Function Factors Limiting Gait Function Poor Balance Poor Safety Awareness Comments Gait Comments pt ambulated without AD SBA to CGA ~ 300 ft x 2. pt is impulsive and tends to run into cabrales/ things in hallway requiring cues for safety. pt with difficulty walking a straigh path. At end of tx session, pt stated that he cannot see the wall that wall because he does not have his glassess on. Stair Climbing Assessment Evaluation Level of Assist On Stairs Standby Assistance Contact Guard Assistance Devices Stair Climbing Assistive Devices None Right Railing Technique/Endurance Stair Climbing Direction Ascend and Descend Stair Climbing Technique Step Over Step Step to Step Number of Steps Climbed 3 Query Text: Stair Climbing Set # Repetitions (reps) 3 Comments Stair Climbing Comments pt completed up/down steps using R rail ascending SBA with step over step pattern. completed up/down steps without rails with step over step pattern SBA to CGA but completed descending with step to step pattern requiring CGA and cues. PT-Balance Assessment Sitting Balance and Reactions Static Sitting Balance Ability Good Dynamic Sitting Balance Ability Good Standing Balance and Reactions Static Standing Balance Ability Fair Dynamic Standing Balance Ability Poor Device Used without AD Balance Tests Single Limb Standing unable without support; LOB with attempt M5 PT-IP Objective Assessments Start: 08/15/18 11:38 Freq: NEEDED Status: Active Protocol: Document 08/15/18 10:03 AB (Rec: 08/15/18 11:54 AB [id number]) Orientation Orientation/Cognition Level of Alertness Alert Orientation Name Age Place Safety Awareness Decreased Safety Awareness Gross Range of Motion Lower Extremity ROM Assessment Within Functional Limits Strength Lower Extremity Strength Assessment Within Functional Limits Coordination Assessment Gross Coordination Gross Coordination WNL Sensation Assessment Sensation Gross Sensation WNL Muscle Tone Muscle Tone WNL Yes M6 PT-IP Treatment Start: 08/15/18 11:38 Freq: NEEDED Status: Active Protocol: Document 08/15/18 10:03 AB (Rec: 08/15/18 11:54 AB [id number]) Physical Therapy Treatment Education Education Provided Safety M7 PT-IP Assessment and Plan Start: 08/15/18 11:38 Freq: NEEDED Status: Active Protocol: Document 08/15/18 10:03 AB (Rec: 08/15/18 11:54 AB [id number]) PT Summary Assessment and Plan Potential Rehabilitation Potential Good Status of Condition at Evaluation Stable Summary Impairments Balance Transfers Gait Assessment Summary pt requiring SBA to CGA with mobility. Has decrease standing balance and decrease safety awareness and can be impulsive. Will monitor consistency with mobility. Goals Transfer Goal Independent Gait Goal Independent Gait Distance 350 Other Goals up/down 1 step without rails mod I up/down 17 steps with B rails mod I Days to Meet Goals 3 Frequency of Treatment Frequency Of Treatment Once a Day Treatment Plan Physical Therapy Treatment Plan Bed Mobility Training Transfer Training Gait Training Therapeutic Exercise Balance Retraining Discharge Planning Neuromuscular Re-ed Coordination Retraining Other Recommendations and Next Treatment ambulation, stair climbing Focus Recommendations To Nursing Amount of Assist Needed 1 Person Assist Discharge Recommendations PT Discharge Recommendations Home with Assistance
--- NOTE | 2018-08-15 11:16 | PM.CHAP ---
Good visit with patient and . Encouraged re need for hospitalization. Scripture and prayer.
--- NOTE | 2018-08-15 11:44 | PM.PN.1 ---
Subjective Date Patient Seen: 08/15/18 Interval history: Patient seen and examined. He reports no further headache. His headache is completely resolved. His blood sugars have been above 90. There has been no episodes of hypoglycemia review of MRI scan does confirm an acute infarct involving the right temporal right insular and right parietal lobes. There also acute small lacunar infarcts involving the frontal and parietal lobes. The MR angio is negative echocardiogram has been obtained however results are still pending. Exam Vital Signs (past 8 hours): - 08/15/18 04:30 08/15/18 07:30 Temperature 99.1 F 97.8 F Pulse Rate 78 59 L Respiratory Rate 18 16 Blood Pressure 119/54 L 107/57 L Pulse Oximetry 100 98 Oxygen Delivery Method Room Air Oxygen Flow Rate 0 Narrative Exam Narrative: Pleasant gentleman resting comfortably in No acute distress Lungs: Clear to auscultation Cardiac exam: Regular rate rhythm normal S1-S2 Abdomen: Soft nontender nondistended Extremities: No edema Neuro exam: Cranial nerves are intact, strength is symmetric and equal, sensation is grossly intact reflexes are brisk and equal gait is not assessed Objective Labs Result Diagrams: 08/14/18 15:56 08/15/18 07:50 Labs: Laboratory Results - last 24 hr 08/14/18 08/14/18 08/14/18 15:03 15:56 15:56 WBC 8.4 RBC 4.26 L Hgb 11.3 L Hct 34.6 L MCV 81.1 MCH 26.5 MCHC 32.6 RDW 14.1 Plt Count 193 Neut % (Auto) 73.3 Lymph % (Auto) 15.3 L [place] % (Auto) 9.7 Eos % (Auto) 1.2 L Baso % (Auto) 0.5 Neut # (Auto) 6100 Lymph # (Auto) 1300 [place] # (Auto) 800 Eos # (Auto) 100 Baso # (Auto) 0 PT 13.1 H INR 1.1 APTT 35 Sodium Potassium Chloride Carbon Dioxide BUN Creatinine Estimated GFR BUN/Creatinine Ratio Glucose Hemoglobin A1c Calcium Total Bilirubin Conjugated Bilirubin Unconjugated Bilirubin AST ALT Alkaline Phosphatase Troponin I Total Protein Albumin Globulin Albumin/Globulin Ratio TSH Urine RBC 1-5/hpf Urine WBC None seen Amorphous Sediment 1+ Urine Bacteria None seen Ur Culture Indicated? Cult not indicated Urine Opiates Screen Ur Oxycodone Screen Urine Methadone Screen Ur Barbiturates Screen U Tricyclic Antidepress Ur Phencyclidine Scrn Ur Amphetamines Screen U Methamphetamines Scrn Ur MDMA Scrn (Ecstasy) U Benzodiazepines Scrn Urine Cocaine Screen U Marijuana (THC) Screen Ketones 08/14/18 08/14/18 08/14/18 15:56 15:56 15:57 WBC RBC Hgb Hct MCV MCH MCHC RDW Plt Count Neut % (Auto) Lymph % (Auto) [place] % (Auto) Eos % (Auto) Baso % (Auto) Neut # (Auto) Lymph # (Auto) [place] # (Auto) Eos # (Auto) Baso # (Auto) PT INR APTT Sodium 134 L Potassium 4.5 Chloride 101 Carbon Dioxide 26 BUN 26 H Creatinine 1.20 Estimated GFR 58.6 L BUN/Creatinine Ratio 21.7 Glucose 104 Hemoglobin A1c Calcium 8.7 Total Bilirubin 0.4 Conjugated Bilirubin Unconjugated Bilirubin AST 18 ALT 29 Alkaline Phosphatase 60 Troponin I Total Protein 7.6 Albumin 3.4 L Globulin 4.2 H Albumin/Globulin Ratio 0.8 L TSH Urine RBC Urine WBC Amorphous Sediment Urine Bacteria Ur Culture Indicated? Urine Opiates Screen Negative Ur Oxycodone Screen Negative Urine Methadone Screen Negative Ur Barbiturates Screen Negative U Tricyclic Antidepress Negative Ur Phencyclidine Scrn Negative Ur Amphetamines Screen Negative U Methamphetamines Scrn Negative Ur MDMA Scrn (Ecstasy) Negative U Benzodiazepines Scrn Negative Urine Cocaine Screen Negative U Marijuana (THC) Screen Negative Ketones 0.08 08/14/18 08/14/18 08/14/18 20:34 20:34 20:34 WBC RBC Hgb Hct MCV MCH MCHC RDW Plt Count Neut % (Auto) Lymph % (Auto) [place] % (Auto) Eos % (Auto) Baso % (Auto) Neut # (Auto) Lymph # (Auto) [place] # (Auto) Eos # (Auto) Baso # (Auto) PT INR APTT Sodium Potassium Chloride Carbon Dioxide BUN Creatinine Estimated GFR BUN/Creatinine Ratio Glucose Hemoglobin A1c 5.3 Calcium Total Bilirubin 0.4 Conjugated Bilirubin 0.0 Unconjugated Bilirubin 0.2 AST 16 L ALT 28 Alkaline Phosphatase 54 Troponin I < 0.012 Total Protein 7.0 Albumin 3.2 L Globulin 3.8 Albumin/Globulin Ratio 0.8 L TSH 1.83 Urine RBC Urine WBC Amorphous Sediment Urine Bacteria Ur Culture Indicated? Urine Opiates Screen Ur Oxycodone Screen Urine Methadone Screen Ur Barbiturates Screen U Tricyclic Antidepress Ur Phencyclidine Scrn Ur Amphetamines Screen U Methamphetamines Scrn Ur MDMA Scrn (Ecstasy) U Benzodiazepines Scrn Urine Cocaine Screen U Marijuana (THC) Screen Ketones 08/15/18 07:50 WBC RBC Hgb Hct MCV MCH MCHC RDW Plt Count Neut % (Auto) Lymph % (Auto) [place] % (Auto) Eos % (Auto) Baso % (Auto) Neut # (Auto) Lymph # (Auto) [place] # (Auto) Eos # (Auto) Baso # (Auto) PT INR APTT Sodium 136 L Potassium 4.5 Chloride 105 Carbon Dioxide 23 BUN 24 H Creatinine 1.10 Estimated GFR > 60.0 BUN/Creatinine Ratio 21.8 Glucose 85 Hemoglobin A1c Calcium 8.5 Total Bilirubin Conjugated Bilirubin Unconjugated Bilirubin AST ALT Alkaline Phosphatase Troponin I Total Protein Albumin Globulin Albumin/Globulin Ratio TSH Urine RBC Urine WBC Amorphous Sediment Urine Bacteria Ur Culture Indicated? Urine Opiates Screen Ur Oxycodone Screen Urine Methadone Screen Ur Barbiturates Screen U Tricyclic Antidepress Ur Phencyclidine Scrn Ur Amphetamines Screen U Methamphetamines Scrn Ur MDMA Scrn (Ecstasy) U Benzodiazepines Scrn Urine Cocaine Screen U Marijuana (THC) Screen Ketones Assessment & Plan Assessment & Plan narrative: 1. Acute stroke involving the right temporal right insular and right parietal lobe. There also acute small lacunar infarcts involving the frontal and parietal lobe. This is suggestive of possible embolic focus. This is present on admission. Await echocardiogram for further evaluation. Patient has been placed on an aspirin. He will remain on DVT prophylaxis. Question hypoglycemia and insulinoma. Not documented here. Await C-peptide and insulin levels which are still pending. Will continue PT OT consultation. Anticipate discharge tomorrow pending results. Quality VTE Deep Vein Thrombosis/Pulmonary Embolism Present on Admission: No
--- NOTE | 2018-08-15 13:23 | CM.DANOTE ---
Discharge Planning/Care Management DCP: assessment: case received and discussed in Team Rounds. EMR reviewed and met now with pt and his , at bedside. Introduced self and role. PT/OT and MILKING WORKER are ordered. (PT has worked with pt already but his was not present during session). Pt is a 78 year old male who admitted to care of hospitalist team last evening. Payer: Medicare and [facility]. PCP: was Dr. Bambi Tenorio, calvin chanel at [facility]. Pt with MRI showing multiple areas of acute infarcts per Dr. Bowers and currently therapy team is in process of seeing in what ways these have affected pt. OT will be working with pt shortly and his will stay in room so that she can be part of the session. Had brief discussion with pt and his re the rehab options under his Medicare and with understanding that more will be known by tomorrow. P: follow up tomorrow as more is known re the d/c issues and options. Advanced directive, confirm from FAMILY Start: 08/14/18 19:37 Freq: Q24H Status: Active Protocol: Document 08/15/18 01:33 (Rec: 08/15/18 01:41 [id number]) Advance Directive, confirm on record Time 00:00 Person contacted Spouse Copy received No Copy received No Advanced directive available on record No CM Discharge Assessment Start: 08/15/18 13:19 Freq: Status: Active Protocol: Document 08/15/18 13:20 ITV (Rec: 08/15/18 13:23 [email or web address] [id number]) Discharge Planning Assessment Advance Directives? Yes History Provided By Patient Family Member Medical Record Prior Living Arrangements House Comment 2 level home. 17 stairs to bedroom but also chair lift on stairs. Household Members spouse Independent with ADL's Yes: prior to this CVA Is patient alert and oriented? alert, appears a bit impulsive Comment chair lift inside home to second floor Comment brief discussion OUPT, HH and SNF options under pt's Medicare benefit Whiteboard Updated in Patient Room with Yes name and ext. # of Air Conditioning Mechanic Review Status In Process Next Review Type Continued Stay Review Discharge Planning/Care Management Advanced directive, confirm from FAMILY Start: 08/14/18 19:37 Freq: Q24H Status: Active Protocol: Document 08/15/18 01:33 SL (Rec: 08/15/18 01:41 [id number]) Advance Directive, confirm on record Time 00:00 Person contacted Spouse Copy received No Copy received No Advanced directive available on record No CM Discharge Assessment Start: 08/15/18 13:19 Freq: Status: Active Protocol: Document 08/15/18 13:20 ITV (Rec: 08/15/18 13:23 [email or web address] [id number]) Discharge Planning Assessment Advance Directives? Yes History Provided By Patient Family Member Medical Record Prior Living Arrangements House Comment 2 level home. 17 stairs to bedroom but also chair lift on stairs. Household Members spouse Independent with ADL's Yes: prior to this CVA Is patient alert and oriented? alert, appears a bit impulsive Comment chair lift inside home to second floor Comment brief discussion OUPT, HH and SNF options under pt's Medicare benefit Whiteboard Updated in Patient Room with Yes name and ext. # of Air Conditioning Mechanic Review Status In Process Next Review Type Continued Stay Review
--- NOTE | 2018-08-15 14:03 | PC.NURSE ---
Addendum entered by Myla Schmid R.N. 08/15/18 14:18: just into see patient and pt had a cva, she also states that he is having some issues with his heart and will need to have surgery. He is visiting with his at this time. Original Note: Assessment- Pt A&Ox3 this morning. NIH stroke scale all wnl. Pt worked with PT and ambulated well, staff will use walker when pt is up to the bathroom. Speech therapy called and since pt is doing well with his regular consistent carb diet, they will not be in to do a speech and swallow evaluation until Friday. is aware of this and states that pt will most likely be discharged to home before Friday. He denies any numbness or tingling to head. He answers questions appropriately, he is hard of hearing. His is in the room visiting and pts ECHO done around 1230. Napping at this time.
--- NOTE | 2018-08-15 15:51 | PM.DS.1 ---
History of Present Illness Chief complaint: Headaches x1 week Narrative: Chief complaint: Headaches x1 week Narrative: PMH: HTN, AV insufficiency (non-rheumatic), h/o syncope, chronic bronchitis, HLD, GERD, dysphasia, BPH, h/o recurrent nephrolithiasis, prior insulinoma ? PSH: lithotripsy, rhinoplasty, rotator cuff repair, TURP HPI is obtained from the patient and review of records. Patient is not a good historian. Attempted to call family, but no one is available.\ Patient presents with a one-week history of a headache. Localized to the frontal aspect of the head and at times felt behind the eyes. Head discomfort is characterized as someone is sticking a screw through the head. Patient reports experiencing hypoglycemia, tremulousness, chills, Discharge Providers Date of admission: 08/14/18 18:27 Primary care physician: Jona Mckeon MD Consults: 08/14/18 20:14 Consult to Discharge Planning Routine Comment: d/c planning; potentially needs outpatient rehab Consult to Occupational Therapy Evaluate & Treat Comment: Physician Instructions: Evaluate and treat Consult to Physical Therapy Evaluate & Treat Comment: Physician Instructions: Evaluate and Treat Consult to Speech Therapy Evaluate & Treat Comment: Physician Instructions: Evaluate and treat Discharge provider: Lala Bowers MD Discharge Date: 08/15/18 Summary Discharge Diagnosis: Acute CVA involving the Right Parietal, Temporal, Insular regions, present on admission 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 He reports a history of hypoglycemia although never documented or fully evaluated. Patient underwent a head CT which suggested a subacute stroke. Follow Up MRI of the brain confirmed an acute CVA involving the right parietal, temporal lobe and insular region. There was also acute lacunar infarcts of the bilateral frontal and parietal lobes. An Echo confirmed a highly mobile structure of the aortic valve on the Left coronary cust measuring 1.0 by 0.7 cm. This was not present on a prior Echo done in 2016. The patient had no further headache or documented hypoglycemic episodes. Given the highly mobile structure identified on the Aortic Valve arrangements were made to transfer the Patient to the [facility] for Consultation with Cardiovascular Surgery, Cardiology, and Neurology. Patient was deemed appropriate for transfer for a higher level of care. Status at Discharge Cognitive/behavioral status at discharge: Per some confusion and decreased mentation Functional status at discharge: independent ambulation Overall status at discharge: patient is not back to baseline Time Spent with Patient Greater than 30 minutes Exam Vital Signs (past 8 hours): - 08/15/18 12:00 Pulse Rate 52 L Respiratory Rate 16 Blood Pressure 104/54 L Pulse Oximetry 100 Oxygen Delivery Method Room Air Oxygen Flow Rate 0 Narrative Exam Narrative: Pleasant male in no obvious distress HEENT: NC/ AT, EOMI, Tongue midline Lungs: clear to auscultation CV: RRR nl Sl S2 2/6 KEANU Strength symmetric and equal, sensation intact, reflexes brisk and equal Gait is not assessed Objective Labs Result Diagrams: 08/14/18 15:56 08/15/18 07:50 Labs: Laboratory Results - last 24 hr 08/14/18 08/14/18 08/14/18 15:56 15:56 15:56 WBC 8.4 RBC 4.26 L Hgb 11.3 L Hct 34.6 L MCV 81.1 MCH 26.5 MCHC 32.6 RDW 14.1 Plt Count 193 Neut % (Auto) 73.3 Lymph % (Auto) 15.3 L [place] % (Auto) 9.7 Eos % (Auto) 1.2 L Baso % (Auto) 0.5 Neut # (Auto) 6100 Lymph # (Auto) 1300 [place] # (Auto) 800 Eos # (Auto) 100 Baso # (Auto) 0 PT 13.1 H INR 1.1 APTT 35 Sodium 134 L Potassium 4.5 Chloride 101 Carbon Dioxide 26 BUN 26 H Creatinine 1.20 Estimated GFR 58.6 L BUN/Creatinine Ratio 21.7 Glucose 104 Hemoglobin A1c Calcium 8.7 Total Bilirubin 0.4 Conjugated Bilirubin Unconjugated Bilirubin AST 18 ALT 29 Alkaline Phosphatase 60 Troponin I Total Protein 7.6 Albumin 3.4 L Globulin 4.2 H Albumin/Globulin Ratio 0.8 L TSH Urine Opiates Screen Ur Oxycodone Screen Urine Methadone Screen Ur Barbiturates Screen U Tricyclic Antidepress Ur Phencyclidine Scrn Ur Amphetamines Screen U Methamphetamines Scrn Ur MDMA Scrn (Ecstasy) U Benzodiazepines Scrn Urine Cocaine Screen U Marijuana (THC) Screen Ketones 08/14/18 08/14/18 08/14/18 15:56 15:57 20:34 WBC RBC Hgb Hct MCV MCH MCHC RDW Plt Count Neut % (Auto) Lymph % (Auto) [place] % (Auto) Eos % (Auto) Baso % (Auto) Neut # (Auto) Lymph # (Auto) [place] # (Auto) Eos # (Auto) Baso # (Auto) PT INR APTT Sodium Potassium Chloride Carbon Dioxide BUN Creatinine Estimated GFR BUN/Creatinine Ratio Glucose Hemoglobin A1c 5.3 Calcium Total Bilirubin Conjugated Bilirubin Unconjugated Bilirubin AST ALT Alkaline Phosphatase Troponin I Total Protein Albumin Globulin Albumin/Globulin Ratio TSH Urine Opiates Screen Negative Ur Oxycodone Screen Negative Urine Methadone Screen Negative Ur Barbiturates Screen Negative U Tricyclic Antidepress Negative Ur Phencyclidine Scrn Negative Ur Amphetamines Screen Negative U Methamphetamines Scrn Negative Ur MDMA Scrn (Ecstasy) Negative U Benzodiazepines Scrn Negative Urine Cocaine Screen Negative U Marijuana (THC) Screen Negative Ketones 0.08 08/14/18 08/14/18 08/15/18 20:34 20:34 07:50 WBC RBC Hgb Hct MCV MCH MCHC RDW Plt Count Neut % (Auto) Lymph % (Auto) [place] % (Auto) Eos % (Auto) Baso % (Auto) Neut # (Auto) Lymph # (Auto) [place] # (Auto) Eos # (Auto) Baso # (Auto) PT INR APTT Sodium 136 L Potassium 4.5 Chloride 105 Carbon Dioxide 23 BUN 24 H Creatinine 1.10 Estimated GFR > 60.0 BUN/Creatinine Ratio 21.8 Glucose 85 Hemoglobin A1c Calcium 8.5 Total Bilirubin 0.4 Conjugated Bilirubin 0.0 Unconjugated Bilirubin 0.2 AST 16 L ALT 28 Alkaline Phosphatase 54 Troponin I < 0.012 Total Protein 7.0 Albumin 3.2 L Globulin 3.8 Albumin/Globulin Ratio 0.8 L TSH 1.83 Urine Opiates Screen Ur Oxycodone Screen Urine Methadone Screen Ur Barbiturates Screen U Tricyclic Antidepress Ur Phencyclidine Scrn Ur Amphetamines Screen U Methamphetamines Scrn Ur MDMA Scrn (Ecstasy) U Benzodiazepines Scrn Urine Cocaine Screen U Marijuana (THC) Screen Ketones Discharge Plan Discharge Plan Patient Disposition: [facility] Transfer to: [facility] Discharge Med Rec/Prescriptions Prescriptions: Continued lisinopril 20 mg tablet 20 mg PO DAILY RF: 0 aspirin 81 MG tablet,delayed release (DR/EC) 243 mg PO BEDTIME Qty: 30 RF: 0 fluticasone 16 GM spray,suspension 1 spray Intranasal DAILY Qty: 0 RF: 0 montelukast [Singulair] 10 mg tablet 10 mg PO DAILY RF: 0 Ventolin HFA 90 MCG/PUFF HFA aerosol inhaler 1 puff INH Q4HP PRN (Reason: Shortness Of Breath) RF: 0 albuterol sulfate 90 mcg/actuation Hfa Aerosol Inhaler 1 puff INHALATION PRN PRN (Reason: Shortness Of Breath) RF: 0 Discontinued ibuprofen 200 mg Tablet 1 dose PO PRN PRN (Reason: pain or headache) RF: 0 Follow up/Referrals: Jona Mckeon MD [Primary Care Provider] - Discharge Orders: Discharge (Order); Ordered 08/15/18 Ordered By: Lala Bowers Provider Discharge Instructions Diet: Low-sodium and Low-cholesterol Liquid consistency: Normal/Thin Food texture: Regular Activity: as tolerated Discharge Data Primary Care Provider: Jona Mckeon Attending Provider: Mary Ellen Car Admit Date/Time: 08/14/18 18:27 Discharges patient from system. Discharge Date/Time: 08/15/18 20:00 Quality VTE Deep Vein Thrombosis/Pulmonary Embolism Present on Admission: No
--- NOTE | 2018-08-15 16:01 | P.DS_ITS ---
History of Present Illness Chief complaint: Headaches x1 week Narrative: Chief complaint: Headaches x1 week Narrative: PMH: HTN, AV insufficiency (non-rheumatic), h/o syncope, chronic bronchitis, HLD, GERD, dysphasia, BPH, h/o recurrent nephrolithiasis, prior insulinoma ? PSH: lithotripsy, rhinoplasty, rotator cuff repair, TURP HPI is obtained from the patient and review of records. Patient is not a good historian. Attempted to call family, but no one is available.\ Patient presents with a one-week history of a headache. Localized to the frontal aspect of the head and at times felt behind the eyes. Head discomfort is characterized as someone is sticking a screw through the head. Patient reports experiencing hypoglycemia, tremulousness, chills, Discharge Providers Date of admission: 08/14/18 18:27 Primary care physician: Jona Mckeon MD Consults: 08/14/18 20:14 Consult to Discharge Planning Routine Comment: d/c planning; potentially needs outpatient rehab Consult to Occupational Therapy Evaluate & Treat Comment: Physician Instructions: Evaluate and treat Consult to Physical Therapy Evaluate & Treat Comment: Physician Instructions: Evaluate and Treat Consult to Speech Therapy Evaluate & Treat Comment: Physician Instructions: Evaluate and treat Discharge provider: Lala Bowers MD Discharge Date: 08/15/18 Summary Discharge Diagnosis: Acute CVA involving the Right Parietal, Temporal, Insular regions, present on admission 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 He reports a history of hypoglycemia although never documented or fully evaluated. Patient underwent a head CT which suggested a subacute stroke. Follow Up MRI of the brain confirmed an acute CVA involving the right parietal, temporal lobe and insular region. There was also acute lacunar infarcts of the bilateral frontal and parietal lobes. An Echo confirmed a highly mobile structure of the aortic valve on the Left coronary cust measuring 1.0 by 0.7 cm. This was not present on a prior Echo done in 2016. The patient had no further headache or documented hypoglycemic episodes. Given the highly mobile structure identified on the Aortic Valve arrangements were made to transfer the Patient to the [facility] for Consultation with Cardiovascular Surgery, Cardiology, and Jeff rology. Patient was deemed appropriate for transfer for a higher level of care. Status at Discharge Cognitive/behavioral status at discharge: Per some confusion and decreased mentation Functional status at discharge: independent ambulation Overall status at discharge: patient is not back to baseline Time Spent with Patient Greater than 30 minutes Exam Vital Signs (past 8 hours): - 08/15/18 12:00 Pulse Rate 52 L Respiratory Rate 16 Blood Pressure 104/54 L Pulse Oximetry 100 Oxygen Delivery Method Room Air Oxygen Flow Rate 0 Narrative Exam Narrative: Pleasant male in no obvious distress HEENT: NC/ AT, EOMI, Tongue midline Lungs: clear to auscultation CV: RRR nl Sl S2 2/6 KEANU Strength symmetric and equal, sensation intact, reflexes brisk and equal Gait is not assessed Objective Labs Result Diagrams: 08/14/18 15:56 08/15/18 07:50 Labs: Laboratory Results - last 24 hr 08/14/18 08/14/18 08/14/18 15:56 15:56 15:56 WBC 8.4 RBC 4.26 L Hgb 11.3 L Hct 34.6 L MCV 81.1 MCH 26.5 MCHC 32.6 RDW 14.1 Plt Count 193 Neut % (Auto) 73.3 Lymph % (Auto) 15.3 L [place] % (Auto) 9.7 Eos % (Auto) 1.2 L Baso % (Auto) 0.5 Neut # (Auto) 6100 Lymph # (Auto) 1300 [place] # (Auto) 800 Eos # (Auto) 100 Baso # (Auto) 0 PT 13.1 H INR 1.1 APTT 35 Sodium 134 L Potassium 4.5 Chloride 101 Carbon Dioxide 26 BUN 26 H Creatinine 1.20 Estimated GFR 58.6 L BUN/Creatinine Ratio 21.7 Glucose 104 Hemoglobin A1c Calcium 8.7 Total Bilirubin 0.4 Conjugated Bilirubin Unconjugated Bilirubin AST 18 ALT 29 Alkaline Phosphatase 60 Troponin I Total Protein 7.6 Albumin 3.4 L Globulin 4.2 H Albumin/Globulin Ratio 0.8 L TSH Urine Opiates Screen Ur Oxycodone Screen Urine Methadone Screen Ur Barbiturates Screen U Tricyclic Antidepress Ur Phencyclidine Scrn Ur Amphetamines Screen U Methamphetamines Scrn Ur MDMA Scrn (Ecstasy) U Benzodiazepines Scrn Urine Cocaine Screen U Marijuana (THC) Screen Ketones 08/14/18 08/14/18 08/14/18 15:56 15:57 20:34 WBC RBC Hgb Hct MCV MCH MCHC RDW Plt Count Neut % (Auto) Lymph % (Auto) [place] % (Auto) Eos % (Auto) Baso % (Auto) Neut # (Auto) Lymph # (Auto) [place] # (Auto) Eos # (Auto) Baso # (Auto) PT INR APTT Sodium Potassium Chloride Carbon Dioxide BUN Creatinine Estimated GFR BUN/Creatinine Ratio Glucose Hemoglobin A1c 5.3 Calcium Total Bilirubin Conjugated Bilirubin Unconjugated Bilirubin AST ALT Alkaline Phosphatase Troponin I Total Protein Albumin Globulin Albumin/Globulin Ratio TSH Urine Opiates Screen Negative Ur Oxycodone Screen Negative Urine Methadone Screen Negative Ur Barbiturates Screen Negative U Tricyclic Antidepress Negative Ur Phencyclidine Scrn Negative Ur Amphetamines Screen Negative U Methamphetamines Scrn Negative Ur MDMA Scrn (Ecstasy) Negative U Benzodiazepines Scrn Negative Urine Cocaine Screen Negative U Marijuana (THC) Screen Negative Ketones 0.08 08/14/18 08/14/18 08/15/18 20:34 20:34 07:50 WBC RBC Hgb Hct MCV MCH MCHC RDW Plt Count Neut % (Auto) Lymph % (Auto) [place] % (Auto) Eos % (Auto) Baso % (Auto) Neut # (Auto) Lymph # (Auto) [place] # (Auto) Eos # (Auto) Baso # (Auto) PT INR APTT Sodium 136 L Potassium 4.5 Chloride 105 Carbon Dioxide 23 BUN 24 H Creatinine 1.10 Estimated GFR > 60.0 BUN/Creatinine Ratio 21.8 Glucose 85 Hemoglobin A1c Calcium 8.5 Total Bilirubin 0.4 Conjugated Bilirubin 0.0 Unconjugated Bilirubin 0.2 AST 16 L ALT 28 Alkaline Phosphatase 54 Troponin I < 0.012 Total Protein 7.0 Albumin 3.2 L Globulin 3.8 Albumin/Globulin Ratio 0.8 L TSH 1.83 Urine Opiates Screen Ur Oxycodone Screen Urine Methadone Screen Ur Barbiturates Screen U Tricyclic Antidepress Ur Phencyclidine Scrn Ur Amphetamines Screen U Methamphetamines Scrn Ur MDMA Scrn (Ecstasy) U Benzodiazepines Scrn Urine Cocaine Screen U Marijuana (THC) Screen Ketones Discharge Plan Discharge Plan Patient Disposition: [facility] Transfer to: [facility] Discharge Med Rec/Prescriptions Prescriptions: Continued lisinopril 20 mg tablet 20 mg PO DAILY RF: 0 aspirin 81 MG tablet,delayed release (DR/EC) 243 mg PO BEDTIME Qty: 30 RF: 0 fluticasone 16 GM spray,suspension 1 spray Intranasal DAILY Qty: 0 RF: 0 montelukast [Singulair] 10 mg tablet 10 mg PO DAILY RF: 0 Ventolin HFA 90 MCG/PUFF HFA aerosol inhaler 1 puff INH Q4HP PRN (Reason: Shortness Of Breath) RF: 0 albuterol sulfate 90 mcg/actuation Hfa Aerosol Inhaler 1 puff INHALATION PRN PRN (Reason: Shortness Of Breath) RF: 0 Discontinued ibuprofen 200 mg Tablet 1 dose PO PRN PRN (Reason: pain or headache) RF: 0 Follow up/Referrals: Jona Mckeon MD [Primary Care Provider] - Discharge Orders: Discharge (Order); Ordered 08/15/18 Ordered By: Lala Bowers Provider Discharge Instructions Diet: Low-sodium and Low-cholesterol Liquid consistency: Normal/Thin Food texture: Regular Activity: as tolerated Discharge Data Primary Care Provider: Jona Mckeon Attending Provider: Mary Ellen Car Admit Date/Time: 08/14/18 18:27 Discharges patient from system. Discharge Date/Time: 08/15/18 20:00 Quality VTE Deep Vein Thrombosis/Pulmonary Embolism Present on Admission: No
--- NOTE | 2018-08-15 17:19 | OT.IP.TRT ---
Occupational Therapy Treatment Note M3 OT- IP Subjective and Pain Start: 08/15/18 17:08 Freq: Status: Active Protocol: Document 08/15/18 17:09 [facility] (Rec: 08/15/18 17:19 [facility] [id number]) OT- Subjective Occupational Therapy Visit Type Type Treatment Note Visit Start Time 15:00 Visit Stop Time 15:20 Total Visit Minutes 20 Occupational Therapy Visit Comments Patient Comments Pt 's present in the room when stopping to see pt for OT eval and for cognitive assessments . In the beginning of OT eval, Dr Bowers came to talk to the pt regarding possible transferring to a different hospital due to heart issues and possible surgery. After coming back to see pt , pt not wanting to complete OT eval, therefore only charge for OT treatment at this time. OT Pain Assessment Pain When Pain Assessed At Rest Pain Present Pain Present Denied Pain M6 OT- IP Functional Cognition Start: 08/15/18 17:08 Freq: Status: Active Protocol: Document 08/15/18 17:09 [facility] (Rec: 08/15/18 17:19 [facility] [id number]) Cognitive Factors Limiting Selfcare Function Cognitive Ability Level of Alertness Alert Confusional State Patient Orientation Name Situation Attention Span Ability Capable of Focused Attention Unable to Sustain Attention Ability to Follow Commands Able to Follow One Step Commands with Increased Time Able to Follow One Step Commands with Repetition Memory Description Short Term Impaired Safety Awareness Underestimates Need for Assistance Problem Solving Ability Unable to Identify Errors Needs Assist to Identify Solutions Executive Function Ability Unable to Switch Focus Unable to Filter Distractions Unable to Make Plans Unable to Organize Plans Unable to Remember Details Cognitive Tests SLUMS Pt scored 16/30 nrmal score is 27/30 which implies cognitive deficits. Pt having difficulty with 2 digit subtractions, short term memory , ability to recall information from a paragraph, ability to name animals in 60 seconds, unable to repeat 4 digit number backwards, ability to draw a clock-pt unable to evenly space out his numbers and did not realize that there was a mistake. Pt needing increased time to process directions and commands. Cognitive Comments Cognitive Assessment Comments Pt needing increased time and visual cues when testing for proprioception and kinesthesia, light touch intact and having some word finding issues. Pt a bit frustrated when not able to complete tasks accurately and often time having delayed responses. OT- Vision and Hearing OT- Vision Assessment Vision Assessment Comments Intact for scanning , peripheral vision, and not able to converge eyes when looking towards his nose.
[2018-08-16 19:06] LABS: C Peptide 1.61 ng/mL (0.80-3.85)
== END 2018-08-15 20:00 | disposition short-term general hospital (02) | DRG 64 ==
LOC: ED 17:40 → AC 18:28
PROVIDERS: Nurse Practitioner Gerontology; Admitting Provider Internal Medicine; Emergency Provider Emergency Medicine; Family Provider Family Medicine; PCP Family Medicine; Visit Provider Internal Medicine
DX: I63.81 Other cerebral infarction due to occlusion or stenosis of small artery (principal); I63.19 Cerebral infarction due to embolism of other precerebral artery; I63.513 Cerebral infarction due to unspecified occlusion or stenosis of bilateral middle cerebral arteries; I10 Essential (primary) hypertension; J44.9 Chronic obstructive pulmonary disease, unspecified; I63.89 Other cerebral infarction; I77.89 Other specified disorders of arteries and arterioles
CPT/HCPCS: 36415; 70450; 70553; 80048; 80053; 80076; 80305; 81003; 81015; 82009; 82962; 83036; 83525; 84443; 84484; 84681; 85025; 85610; 85730; 86337; 93005; 93010; 93306; 94760; 94762; 96360; 97127; 97161; 99283; 99285; 99291; A9579; C9113; J1885

== ENCOUNTER 2018-09-17 20:00 | Observation (INO) | payer MEDICARE, OTHER, SELFPAY ==
[2018-09-17 20:07] VITALS: BP 132/74; PULSE 84; RESP 15; TEMP 36.6; O2SAT 100; BMI 21.8
[2018-09-17 20:39] LABS: Add Manual Diff / Slide Review NO; Basophils Absolute Auto 100 /uL (0-100); Basophils Percent Auto 1.3 % (0-2); Eosinophils Absolute Auto 400 /uL (0-450); Eosinophils Percent Auto 3.7 % (2-4); Hematocrit 27.7 % (41-53); Hemoglobin 9.1 g/dL (13.5-17.5); Lymphocytes Absolute Auto 1100 /uL (1100-4500); Lymphocytes Percent Auto 10.7 % (25-40); Mean Corpuscular Hemoglobin 28.5 PG (26-34); Mean Corpuscular Volume 86.3 fL (80-100); Monocytes Absolute Auto 700 /uL (0-900); Monocytes Percent Auto 6.6 % (3-14); Neutrophils Absolute Auto 7800 /uL (1500-7000); Neutrophils Percent Auto 77.7 % (50-75); Platelet Count 347 X10^3/uL (150-400); Red Blood Cell Count 3.21 X10^6/uL (4.5-5.9); Red Cell Distribution Width 17.4 % (11.6-14.8)
[2018-09-17 20:56] LABS: Alanine Aminotransferase 37 IU/L (21-72); Albumin 3.6 g/dL (3.5-5.0); Alkaline Phosphatase 77 U/L (38-126); Aspartate Aminotransferase 28 IU/L (17-59); BUN Creatinine Ratio 24.6 (6-22); Bilirubin Total 0.4 mg/dL (0.2-1.3); Blood Urea Nitrogen 32 mg/dL (9-20); Calcium 8.5 mg/dL (8.4-10.2); Carbon Dioxide 26 mmol/L (22-32); Chloride 101 mmol/L (98-107); Estimated Glomerular Filt Rate 53.4 mL/min (>60); Globulin 3.7 g/dL (1.7-4.1); Glucose 119 mg/dL (80-110); HEMOLYSIS < 15 (0-50); Magnesium 1.9 mg/dL (1.6-2.3); Sodium 136 mmol/L (137-145); Total Protein 7.3 g/dL (6.3-8.2)
[2018-09-17 21:07] LABS: Troponin I 0.022 ng/mL (0.01-0.034)
--- NOTE | 2018-09-17 21:15 | ED.RECABL ---
HPI - Recheck/Abnormal Lab/Rx General Chief Complaint: Recheck/Abnormal Lab/Rx Stated Complaint: ABD LABS - HIGH POTASSIUM Time Seen by Provider: 09/17/18 20:20 Source: patient Mode of arrival: ambulatory Limitations: no limitations History of Present Illness HPI narrative: 78-year-old former smoker with very complex recent medical history presents due to an abnormal lab draw. Patient had routine labs drawn this afternoon as an outpatient and was called after they noted an elevated potassium of 6.4. The patient feels completely fine and denies any symptoms. He has no dizziness, weakness or lightheadedness. He has no chest pain shortness of breath or cough. He denies any tremors or extremity pain. Patient presented to the emergency department in July complaining of headaches and an old stroke was noted on head CT. 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 The patient was transferred to the [facility] and had stabilization of his condition and a subsequent valve replacement surgery. Last week he was discharged on Friday, went home and started feeling funny . He presented to [facility] was found to be in a newly discovered AFib and then admitted over the weekend. Initial visit (ago): hour(s) Returns today for: called because of abnormal lab/test Symptoms since prior visit: no new symptoms Context: planned re-check Associated symptoms: none Related Data Home Medications Medication Instructions Recorded Confirmed aspirin 243 mg PO BEDTIME #30 tab 02/06/16 09/17/18 fluticasone propionate 1 spray INTRANASAL DAILY PRN #0 05/20/17 09/17/18 albuterol sulfate [Ventolin HFA] 1 puff INH Q4HP PRN 08/14/18 09/17/18 montelukast [Singulair] 10 mg PO DAILY 08/14/18 09/17/18 amiodarone 400 mg PO SEEINSTR 09/17/18 09/17/18 ibuprofen 800 mg PO TID PRN 09/17/18 09/17/18 penicillin G pot in dextrose CONTINUOUS IV INFUSION 09/17/18 09/17/18 rosuvastatin 20 mg PO DAILY 09/17/18 09/17/18 sildenafil (antihypertensive) 20 mg PO DAILY PRN 09/17/18 09/17/18 warfarin 5 mg PO DAILY 09/17/18 09/17/18 Allergies Allergy/AdvReac Type Severity Reaction Status Date / Time morphine Allergy Severe TRIGGERS Verified 08/14/18 14:46 INSULIN PRODUCTION azithromycin Allergy Mild N/V Verified 08/14/18 14:46 cefuroxime Allergy Mild N/V Verified 08/14/18 14:46 etodolac Allergy Mild N/V Verified 08/14/18 14:46 Penicillins Allergy Mild N/V Verified 08/14/18 14:46 piroxicam Allergy Mild N/V Verified 08/14/18 14:46 CLASS: 28:04 - General Allergy Unknown SLOW Uncoded 12/04/17 11:19 Anesthetics RECOVERY Review of Systems Constitutional Denies chills, Denies fever(s), Denies lethargy and Denies weakness Eyes Denies change in vision, Denies eye discharge, Denies irritation and Denies loss of vision ENT Ears, Nose, Mouth, and Throat: Denies change in voice, Denies neck pain and Denies sore throat Cardiovascular Denies chest pain, Denies irregular heart rhythm, Denies lightheadedness, Denies palpitations, Denies dyspnea, Denies dyspnea on exertion and Denies orthopnea Respiratory Denies cough, Denies dyspnea, Denies dyspnea on exertion and Denies wheezing Gastrointestinal Gastrointestinal: Denies abdominal pain, Denies change in bowel habits, Denies diarrhea, Denies nausea and Denies vomiting Genitourinary Denies hematuria, Denies flank pain, Denies urinary incontinence and Denies urinary urgency Musculoskeletal Denies neck pain Integumentary/Breasts Denies pruritus, Denies erythema, Denies rash and Denies wounds Neurologic Denies confusion, Denies loss of vision and Denies weakness Psychiatric Denies anxiety, Denies confusion, Denies depression, Denies homicidal ideation and Denies suicidal ideation Endocrine Denies palpitations Hematologic/Lymphatic Denies easy bruising Allergic/Immunologic Denies wheezing [facility] Medical History Essential hypertension (Chronic) Benign non-nodular prostatic hyperplasia without lower urinary tract symptoms (Chronic 05/02/15) Gastroesophageal reflux disease without esophagitis (Chronic 05/02/15) Simple chronic bronchitis (Chronic 05/02/15) Dysphagia (Chronic 10/16/15) Neck pain (Chronic 10/16/15) Erectile dysfunction (Chronic 09/22/17) Nonrheumatic aortic valve insufficiency (Chronic 03/14/17) Pure hypercholesterolemia (Chronic 03/14/17) Surgical History History of lithotripsy Status post rhinoplasty Status post rotator cuff repair Status post transurethral resection of prostate Family History Brother Age: 69 Crohn's disease without complication, unspecified gastrointestinal tract location Sister Age: 81 Cancer Sister Age: 80 Cancer Social History household members: spouse Smoking Status: Former smoker Family History Brother Age: 69 Crohn's disease without complication, unspecified gastrointestinal tract location Sister Age: 81 Cancer Sister Age: 80 Cancer Social History household members: spouse Smoking Status: Former smoker Exam Narrative Exam Narrative: GENERAL: This is a well-nourished, well-developed patient, in mild distress. HEAD: Atraumatic. Normocephalic. No temporal or scalp tenderness. EYES: Pupils equal round and reactive. Extraocular motions intact. No scleral icterus. No injection or drainage. ENT: Nose without bleeding, purulent drainage or septal hematoma. Throat without erythema, tonsillar hypertrophy or exudate. Uvula midline. Airway patent. NECK: Trachea midline. No JVD or lymphadenopathy. Supple, nontender, no meningeal signs. CARDIOVASCULAR: Regular rate and rhythm without murmurs, gallops, or rubs. Midline incision on chest is healing appropriately RESPIRATORY: Clear to auscultation. Breath sounds equal bilaterally. No wheezes, rales, or rhonchi. GASTROINTESTINAL: Abdomen soft, non-tender, nondistended. No hepato-splenomegaly, or palpable masses. No guarding. EXTREMITIES: No clubbing, cyanosis, or edema. No joint tenderness, effusion, or edema noted. BACK: Nontender without deformity or crepitance. No flank tenderness. NEURO: AOx3. SKIN: No rash or erythema. Initial Vital Signs Initial Vital Signs: Vital Signs Temperature 97.9 F 09/17/18 20:07 Pulse Rate 84 09/17/18 20:07 Respiratory Rate 15 09/17/18 20:07 Blood Pressure 132/74 09/17/18 20:07 Pulse Oximetry 100 09/17/18 20:07 Course Orders Ordered: ED Orders 09/17/18 20:30 Complete Blood Count AUTO DIFF Stat Comprehensive Metabolic Panel Stat Magnesium Stat Prothrombin Time INR Stat Troponin I Stat 09/17/18 23:15 EKG-12 Lead Stat 09/18/18 00:10 EKG-12 Lead Stat 09/18/18 00:50 Potassium Stat 09/18/18 02:50 Potassium Stat Dextrose (D10w) 500 mls @ 500 mls/hr IV CONT ELIJAH Last Infusion: 09/18/18 02:40 Dose: 500 mls/hr Admin: 09/18/18 01:38 Dose: 500 mls/hr Discontinued Medications Albuterol (Ventolin) 2.5 mg INH NOW ONE Stop: 09/17/18 22:07 Last Admin: 09/17/18 22:09 Dose: 2.5 mg Diltiazem HCl (Cardizem) 10 mg IV NOW ONE Stop: 09/17/18 23:53 Last Admin: 09/17/18 23:57 Dose: 10 mg Furosemide (Lasix) 40 mg IV NOW ONE Stop: 09/17/18 22:07 Last Admin: 09/17/18 22:15 Dose: 40 mg Ceftriaxone Sodium/Dextrose (Rocephin) 2 gm in 50 mls @ 100 mls/hr IV NOW ONE Stop: 09/18/18 02:22 Last Infusion: 09/18/18 02:57 Dose: 0 mls/hr Admin: 09/18/18 02:08 Dose: 100 mls/hr Insulin Human Regular (Humulin R) 10 unit IV NOW ONE Stop: 09/18/18 01:24 Last Admin: 09/18/18 01:36 Dose: 10 unit Sodium Polystyrene Sulfonate (Kayexalate) 30 gm PO NOW ONE Stop: 09/17/18 22:26 Last Admin: 09/17/18 22:34 Dose: 30 gm Reevaluation(s) Reevaluation #1: records requested from and [facility] Reevaluation #2: Patient received use penicillin G 24,000,000 units per day. After consultation with pharmacy patient has 1.68 mEq of potassium per 1 million units for a daily dose of 40meq repeat K continues to rise. Rapid Afib converted with one dose of Cardizem 10mg IVP. call to ID at to discuss culture/sensitivities of S. Bovis. It seems to be rather sensitive and Dr. Patel recommends stopping Aravind w/K and switching to Rocephin 2g q24 call back to hospitalist here at . If new D10/insulin starts to trend K down we can keep him here, otherwise he must transfer. Consultations Consultation #1: call to CVT at , no need for transfer based on rapid Afib or HyperK call to hospitalist at , request for transfer given complexity of patient call to cardio at [facility]. No call back Vital Signs - 8 hr 09/17/18 20:07 09/17/18 21:31 09/17/18 22:12 Temperature 97.9 F Pulse Rate 84 81 79 Respiratory Rate 15 23 14 Blood Pressure 132/74 Blood Pressure [Left Arm] 121/61 Pulse Oximetry 100 97 95 09/17/18 23:17 09/17/18 23:57 09/18/18 00:07 Temperature Pulse Rate 132 H 125 H 108 H Respiratory Rate Blood Pressure 120/67 Blood Pressure [Left Arm] 127/65 104/53 L Pulse Oximetry 99 97 09/18/18 00:11 09/18/18 01:02 09/18/18 01:46 Temperature Pulse Rate 87 86 85 Respiratory Rate 16 18 Blood Pressure Blood Pressure [Left Arm] 106/63 124/57 L 114/59 L Pulse Oximetry 97 98 98 09/18/18 02:35 09/18/18 02:58 Temperature Pulse Rate 83 90 Respiratory Rate 18 18 Blood Pressure Blood Pressure [Left Arm] 132/67 134/72 Pulse Oximetry 98 99 MDM - Recheck/Abnormal Lab/Rx Lab Data Result diagrams: 09/17/18 20:30 09/18/18 02:50 Lab Results 09/17/18 09/17/18 09/17/18 Range/Units 20:30 20:30 20:30 WBC 10.0 (4.5-11.0) X10^3/uL RBC 3.21 L (4.5-5.9) X10^6/uL Hgb 9.1 L (13.5-17.5) g/dL Hct 27.7 L (41-53) % MCV 86.3 (80-100) fL MCH 28.5 (26-34) PG MCHC 33.0 (30-36) % RDW 17.4 H (11.6-14.8) % Plt Count 347 (150-400) X10^3/uL Neut % (Auto) 77.7 H (50-75) % Lymph % (Auto) 10.7 L (25-40) % Foster % (Auto) 6.6 (3-14) % Eos % (Auto) 3.7 (2-4) % Baso % (Auto) 1.3 (0-2) % Neut # (Auto) 7800 H (7318-1893) /uL Lymph # (Auto) 1100 (5734-6201) /uL Foster # (Auto) 700 (0-900) /uL Eos # (Auto) 400 (0-450) /uL Baso # (Auto) 100 (0-100) /uL PT 57.4 H (10.1-12.7) SECONDS INR 4.8 H* (0.9-1.3) Sodium 136 L (137-145) mmol/L Potassium 6.6 H* (3.4-5.1) mmol/L Chloride 101 (98-107) mmol/L Carbon Dioxide 26 (22-32) mmol/L BUN 32 H (9-20) mg/dL Creatinine 1.30 H (0.66-1.25) mg/dL Estimated GFR 53.4 L (>60) mL/min BUN/Creatinine Ratio 24.6 H (6-22) Glucose 119 H (80-110) mg/dL Calcium 8.5 (8.4-10.2) mg/dL Magnesium 1.9 (1.6-2.3) mg/dL Total Bilirubin 0.4 (0.2-1.3) mg/dL AST 28 (17-59) IU/L ALT 37 (21-72) IU/L Alkaline Phosphatase 77 (38-126) U/L Troponin I 0.022 (0.01-0.034) ng/mL Total Protein 7.3 (6.3-8.2) g/dL Albumin 3.6 (3.5-5.0) g/dL Globulin 3.7 (1.7-4.1) g/dL Albumin/Globulin Ratio 1.0 (1.0-2.8) 09/18/18 09/18/18 Range/Units 00:50 02:50 WBC (4.5-11.0) X10^3/uL RBC (4.5-5.9) X10^6/uL Hgb (13.5-17.5) g/dL Hct (41-53) % MCV (80-100) fL MCH (26-34) PG MCHC (30-36) % RDW (11.6-14.8) % Plt Count (150-400) X10^3/uL Neut % (Auto) (50-75) % Lymph % (Auto) (25-40) % Foster % (Auto) (3-14) % Eos % (Auto) (2-4) % Baso % (Auto) (0-2) % Neut # (Auto) (7698-4900) /uL Lymph # (Auto) (6468-6272) /uL Foster # (Auto) (0-900) /uL Eos # (Auto) (0-450) /uL Baso # (Auto) (0-100) /uL PT (10.1-12.7) SECONDS INR (0.9-1.3) Sodium (137-145) mmol/L Potassium 6.8 H* 3.5 D (3.4-5.1) mmol/L Chloride (98-107) mmol/L Carbon Dioxide (22-32) mmol/L BUN (9-20) mg/dL Creatinine (0.66-1.25) mg/dL Estimated GFR (>60) mL/min BUN/Creatinine Ratio (6-22) Glucose (80-110) mg/dL Calcium (8.4-10.2) mg/dL Magnesium (1.6-2.3) mg/dL Total Bilirubin (0.2-1.3) mg/dL AST (17-59) IU/L ALT (21-72) IU/L Alkaline Phosphatase (38-126) U/L Troponin I (0.01-0.034) ng/mL Total Protein (6.3-8.2) g/dL Albumin (3.5-5.0) g/dL Globulin (1.7-4.1) g/dL Albumin/Globulin Ratio (1.0-2.8) Point of Care Testing Glucose POC 232 Critical Care Time Critical Care Time: Yes Total Critical Care Time: 30 Attestation: The high probability of a clinically significant, sudden or life threatening deterioration of the [cardiovascular] system(s) required my full and direct attention, intervention and personal management. The aggregate critical care time was [30] minutes. This time is in addition to time spent performing reported procedures but includes the following: [x] Data Review and interpretation [x] Patient assessment and monitoring of vital signs [x] Documentation [x] Medication orders and management Discharge Plan Departure Patient Disposition: Admitted as Observation Clinical Impression: Acute hyperkalemia
--- NOTE | 2018-09-17 21:19 | ED_ITS ---
HPI - Recheck/Abnormal Lab/Rx General Chief Complaint: Recheck/Abnormal Lab/Rx Stated Complaint: ABD LABS - HIGH POTASSIUM Time Seen by Provider: 09/17/18 20:20 Source: patient Mode of arrival: ambulatory Limitations: no limitations History of Present Illness HPI narrative: 78-year-old former smoker with very complex recent medical history presents due to an abnormal lab draw. Patient had routine labs drawn this afternoon as an outpatient and was called after they noted an elevated potassium of 6.4. The patient feels completely fine and denies any symptoms. He has no dizziness, weakness or lightheadedness. He has no chest pain shortness of breath or cough. He denies any tremors or extremity pain. Patient presented to the emergency department in July complaining of headaches and an old stroke was noted on head CT. 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 The patient was transferred to the [facility] and had stabilization of his condition and a subsequent valve replacement surgery. Last week he was discharged on Friday, went home and started feeling funny . He presented to [facility] was found to be in a newly discovered AFib and then admitted over the weekend. Initial visit (ago): hour(s) Returns today for: called because of abnormal lab/test Symptoms since prior visit: no new symptoms Context: planned re-check Associated symptoms: none Related Data Home Medications Medication Instructions Recorded Confirmed aspirin 243 mg PO BEDTIME #30 tab 02/06/16 09/17/18 fluticasone propionate 1 spray INTRANASAL DAILY PRN #0 05/20/17 09/17/18 albuterol sulfate [Ventolin HFA] 1 puff INH Q4HP PRN 08/14/18 09/17/18 montelukast [Singulair] 10 mg PO DAILY 08/14/18 09/17/18 amiodarone 400 mg PO SEEINSTR 09/17/18 09/17/18 ibuprofen 800 mg PO TID PRN 09/17/18 09/17/18 penicillin G pot in dextrose CONTINUOUS IV INFUSION 09/17/18 09/17/18 rosuvastatin 20 mg PO DAILY 09/17/18 09/17/18 sildenafil (antihypertensive) 20 mg PO DAILY PRN 09/17/18 09/17/18 warfarin 5 mg PO DAILY 09/17/18 09/17/18 Allergies Allergy/AdvReac Type Severity Reaction Status Date / Time morphine Allergy Severe TRIGGERS Verified 08/14/18 14:46 INSULIN PRODUCTION azithromycin Allergy Mild N/V Verified 08/14/18 14:46 cefuroxime Allergy Mild N/V Verified 08/14/18 14:46 etodolac Allergy Mild N/V Verified 08/14/18 14:46 Penicillins Allergy Mild N/V Verified 08/14/18 14:46 piroxicam Allergy Mild N/V Verified 08/14/18 14:46 CLASS: 28:04 - General Allergy Unknown SLOW Uncoded 12/04/17 11:19 Anesthetics RECOVERY Review of Systems Constitutional Denies chills, Denies fever(s), Denies lethargy and Denies weakness Eyes Denies change in vision, Denies eye discharge, Denies irritation and Denies loss of vision ENT Ears, Nose, Mouth, and Throat: Denies change in voice, Denies neck pain and Denies sore throat Cardiovascular Denies chest pain, Denies irregular heart rhythm, Denies lightheadedness, Denies palpitations, Denies dyspnea, Denies dyspnea on exertion and Denies orthopnea Respiratory Denies cough, Denies dyspnea, Denies dyspnea on exertion and Denies wheezing Gastrointestinal Gastrointestinal: Denies abdominal pain, Denies change in bowel habits, Denies diarrhea, Denies nausea and Denies vomiting Genitourinary Denies hematuria, Denies flank pain, Denies urinary incontinence and Denies urinary urgency Musculoskeletal Denies neck pain Integumentary/Breasts Denies pruritus, Denies erythema, Denies rash and Denies wounds Neurologic Denies confusion, Denies loss of vision and Denies weakness Psychiatric Denies anxiety, Denies confusion, Denies depression, Denies homicidal ideation and Denies suicidal ideation Endocrine Denies palpitations Hematologic/Lymphatic Denies easy bruising Allergic/Immunologic Denies wheezing [facility] History Essential hypertension (Chronic) Benign non-nodular prostatic hyperplasia without lower urinary tract symptoms (Chronic 05/02/15) Gastroesophageal reflux disease without esophagitis (Chronic 05/02/15) Simple chronic bronchitis (Chronic 05/02/15) Dysphagia (Chronic 10/16/15) Neck pain (Chronic 10/16/15) Erectile dysfunction (Chronic 09/22/17) Nonrheumatic aortic valve insufficiency (Chronic 03/14/17) Pure hypercholesterolemia (Chronic 03/14/17) Surgical History History of lithotripsy Status post rhinoplasty Status post rotator cuff repair Status post transurethral resection of prostate Family History Brother Age: 69 Crohn's disease without complication, unspecified gastrointestinal tract location Sister Age: 81 Cancer Sister Age: 80 Cancer Social History household members: spouse Smoking Status: Former smoker Family History Brother Age: 69 Crohn's disease without complication, unspecified gastrointestinal tract location Sister Age: 81 Cancer Sister Age: 80 Cancer Social History household members: spouse Smoking Status: Former smoker Exam Narrative Exam Narrative: GENERAL: This is a well-nourished, well-developed patient, in mild distress. HEAD: Atraumatic. Normocephalic. No temporal or scalp tenderness. EYES: Pupils equal round and reactive. Extraocular motions intact. No scleral icterus. No injection or drainage. ENT: Nose without bleeding, purulent drainage or septal hematoma. Throat without erythema, tonsillar hypertrophy or exudate. Uvula midline. Airway patent. NECK: Trachea midline. No JVD or lymphadenopathy. Supple, nontender, no meningeal signs. CARDIOVASCULAR: Regular rate and rhythm without murmurs, gallops, or rubs. Midline incision on chest is healing appropriately RESPIRATORY: Clear to auscultation. Breath sounds equal bilaterally. No wheezes, rales, or rhonchi. GASTROINTESTINAL: Abdomen soft, non-tender, nondistended. No hepato- splenomegaly, or palpable masses. No guarding. EXTREMITIES: No clubbing, cyanosis, or edema. No joint tenderness, effusion, or edema noted. BACK: Nontender without deformity or crepitance. No flank tenderness. NEURO: AOx3. SKIN: No rash or erythema. Initial Vital Signs Initial Vital Signs: Vital Signs Temperature 97.9 F 09/17/18 20:07 Pulse Rate 84 09/17/18 20:07 Respiratory Rate 15 09/17/18 20:07 Blood Pressure 132/74 09/17/18 20:07 Pulse Oximetry 100 09/17/18 20:07 Course Orders Ordered: ED Orders 09/17/18 20:30 Complete Blood Count AUTO DIFF Stat Comprehensive Metabolic Panel Stat Magnesium Stat Prothrombin Time INR Stat Troponin I Stat 09/17/18 23:15 EKG-12 Lead Stat 09/18/18 00:10 EKG-12 Lead Stat 09/18/18 00:50 Potassium Stat 09/18/18 02:50 Potassium Stat Dextrose (D10w) 500 mls @ 500 mls/hr IV CONT ELIJAH Last Infusion: 09/18/18 02:40 Dose: 500 mls/hr Admin: 09/18/18 01:38 Dose: 500 mls/hr Discontinued Medications Albuterol (Ventolin) 2.5 mg INH NOW ONE Stop: 09/17/18 22:07 Last Admin: 09/17/18 22:09 Dose: 2.5 mg Diltiazem HCl (Cardizem) 10 mg IV NOW ONE Stop: 09/17/18 23:53 Last Admin: 09/17/18 23:57 Dose: 10 mg Furosemide (Lasix) 40 mg IV NOW ONE Stop: 09/17/18 22:07 Last Admin: 09/17/18 22:15 Dose: 40 mg Ceftriaxone Sodium/Dextrose (Rocephin) 2 gm in 50 mls @ 100 mls/hr IV NOW ONE Stop: 09/18/18 02:22 Last Infusion: 09/18/18 02:57 Dose: 0 mls/hr Admin: 09/18/18 02:08 Dose: 100 mls/hr Insulin Human Regular (Humulin R) 10 unit IV NOW ONE Stop: 09/18/18 01:24 Last Admin: 09/18/18 01:36 Dose: 10 unit Sodium Polystyrene Sulfonate (Kayexalate) 30 gm PO NOW ONE Stop: 09/17/18 22:26 Last Admin: 09/17/18 22:34 Dose: 30 gm Reevaluation(s) Reevaluation #1: records requested from and [facility] Reevaluation #2: Patient received use penicillin G 24,000,000 units per day. After consultation with pharmacy patient has 1.68 mEq of potassium per 1 million units for a daily dose of 40meq repeat K continues to rise. Rapid Afib converted with one dose of Cardizem 10mg IVP. call to ID at to discuss culture/sensitivities of S. Bovis. It seems to be rather sensitive and Dr. Patel recommends stopping Aravind w/K and switching to Rocephin 2g q24 call back to hospitalist here at . If new D10/insulin starts to trend K down we can keep him here, otherwise he must transfer. Consultations Consultation #1: call to CVT at , no need for transfer based on rapid Afib or HyperK call to hospitalist at , request for transfer given complexity of patient call to cardio at [facility]. No call back Vital Signs - 8 hr 09/17/18 20:07 09/17/18 21:31 09/17/18 22:12 Temperature 97.9 F Pulse Rate 84 81 79 Respiratory Rate 15 23 14 Blood Pressure 132/74 Blood Pressure [Left Arm] 121/61 Pulse Oximetry 100 97 95 09/17/18 23:17 09/17/18 23:57 09/18/18 00:07 Temperature Pulse Rate 132 H 125 H 108 H Respiratory Rate Blood Pressure 120/67 Blood Pressure [Left Arm] 127/65 104/53 L Pulse Oximetry 99 97 09/18/18 00:11 09/18/18 01:02 09/18/18 01:46 Temperature Pulse Rate 87 86 85 Respiratory Rate 16 18 Blood Pressure Blood Pressure [Left Arm] 106/63 124/57 L 114/59 L Pulse Oximetry 97 98 98 09/18/18 02:35 09/18/18 02:58 Temperature Pulse Rate 83 90 Respiratory Rate 18 18 Blood Pressure Blood Pressure [Left Arm] 132/67 134/72 Pulse Oximetry 98 99 MDM - Recheck/Abnormal Lab/Rx Lab Data Result diagrams: 09/17/18 20:30 09/18/18 02:50 Lab Results 09/17/18 09/17/18 09/17/18 Range/Units 20:30 20:30 20:30 WBC 10.0 (4.5-11.0) X10^3/uL RBC 3.21 L (4.5-5.9) X10^6/uL Hgb 9.1 L (13.5-17.5) g/dL Hct 27.7 L (41-53) % MCV 86.3 (80-100) fL MCH 28.5 (26-34) PG MCHC 33.0 (30-36) % RDW 17.4 H (11.6-14.8) % Plt Count 347 (150-400) X10^3/uL Neut % (Auto) 77.7 H (50-75) % Lymph % (Auto) 10.7 L (25-40) % Dickens % (Auto) 6.6 (3-14) % Eos % (Auto) 3.7 (2-4) % Baso % (Auto) 1.3 (0-2) % Neut # (Auto) 7800 H (2298-3899) /uL Lymph # (Auto) 1100 (5661-2721) /uL Dickens # (Auto) 700 (0-900) /uL Eos # (Auto) 400 (0-450) /uL Baso # (Auto) 100 (0-100) /uL PT 57.4 H (10.1-12.7) SECONDS INR 4.8 H* (0.9-1.3) Sodium 136 L (137-145) mmol/L Potassium 6.6 H* (3.4-5.1) mmol/L Chloride 101 (98-107) mmol/L Carbon Dioxide 26 (22-32) mmol/L BUN 32 H (9-20) mg/dL Creatinine 1.30 H (0.66-1.25) mg/dL Estimated GFR 53.4 L (>60) mL/min BUN/Creatinine Ratio 24.6 H (6-22) Glucose 119 H (80-110) mg/dL Calcium 8.5 (8.4-10.2) mg/dL Magnesium 1.9 (1.6-2.3) mg/dL Total Bilirubin 0.4 (0.2-1.3) mg/dL AST 28 (17-59) IU/L ALT 37 (21-72) IU/L Alkaline Phosphatase 77 (38-126) U/L Troponin I 0.022 (0.01-0.034) ng/mL Total Protein 7.3 (6.3-8.2) g/dL Albumin 3.6 (3.5-5.0) g/dL Globulin 3.7 (1.7-4.1) g/dL Albumin/Globulin Ratio 1.0 (1.0-2.8) 09/18/18 09/18/18 Range/Units 00:50 02:50 WBC (4.5-11.0) X10^3/uL RBC (4.5-5.9) X10^6/uL Hgb (13.5-17.5) g/dL Hct (41-53) % MCV (80-100) fL MCH (26-34) PG MCHC (30-36) % RDW (11.6-14.8) % Plt Count (150-400) X10^3/uL Neut % (Auto) (50-75) % Lymph % (Auto) (25-40) % Dickens % (Auto) (3-14) % Eos % (Auto) (2-4) % Baso % (Auto) (0-2) % Neut # (Auto) (0575-6348) /uL Lymph # (Auto) (4105-8966) /uL Dickens # (Auto) (0-900) /uL Eos # (Auto) (0-450) /uL Baso # (Auto) (0-100) /uL PT (10.1-12.7) SECONDS INR (0.9-1.3) Sodium (137-145) mmol/L Potassium 6.8 H* 3.5 D (3.4-5.1) mmol/L Chloride (98-107) mmol/L Carbon Dioxide (22-32) mmol/L BUN (9-20) mg/dL Creatinine (0.66-1.25) mg/dL Estimated GFR (>60) mL/min BUN/Creatinine Ratio (6-22) Glucose (80-110) mg/dL Calcium (8.4-10.2) mg/dL Magnesium (1.6-2.3) mg/dL Total Bilirubin (0.2-1.3) mg/dL AST (17-59) IU/L ALT (21-72) IU/L Alkaline Phosphatase (38-126) U/L Troponin I (0.01-0.034) ng/mL Total Protein (6.3-8.2) g/dL Albumin (3.5-5.0) g/dL Globulin (1.7-4.1) g/dL Albumin/Globulin Ratio (1.0-2.8) Point of Care Testing Glucose POC 232 Critical Care Time Critical Care Time: Yes Total Critical Care Time: 30 Attestation: The high probability of a clinically significant, sudden or life threatening deterioration of the [cardiovascular] system(s) required my full and direct attention, intervention and personal management. The aggregate critical care time was [30] minutes. This time is in addition to time spent performing reported procedures but includes the following: [x] Data Review and interpretation [x] Patient assessment and monitoring of vital signs [x] Documentation [x] Medication orders and management Discharge Plan Departure Patient Disposition: Admitted as Observation Clinical Impression: Acute hyperkalemia
[2018-09-17 21:31] VITALS: BP 121/61; PULSE 81; RESP 23; O2SAT 97
[2018-09-17 21:33] LABS: Potassium 6.6 mmol/L (3.4-5.1)
[2018-09-17] MEDS: ALBUTEROL 2.5 MG/3 ML NEB (ADULT) INH (22:09)
[2018-09-17 22:12] VITALS: PULSE 79; RESP 14; O2SAT 95
[2018-09-17] MEDS: FUROSEMIDE 40 MG/4 ML VIAL IV (22:15)
[2018-09-17] MEDS: SODIUM POLYSTYRENE SULFON/SORB 15 GM/60 ML CUP 30 GM PO (22:34)
[2018-09-17 23:17] VITALS: BP 127/65; PULSE 132; O2SAT 99
--- NOTE | 2018-09-17 23:24 | PC.NURSE ---
Pt using urinal. HR increased to 130s rate and irregular. Pt denies any symptoms at this time. Denies any chest pain, sob or palpation, Provider aware. EKG complete at this time.
[2018-09-17 23:33] LABS: Prothrombin Time 57.4 SECONDS (10.1-12.7)
[2018-09-17 23:43] LABS: INR 4.8 (0.9-1.3)
[2018-09-17 23:57] VITALS: BP 120/67; PULSE 125
[2018-09-17] MEDS: dilTIAZem 5 MG/ML SDV 10 MG IV (23:57)
[2018-09-18] VITALS (13 sets, daily range): BP systolic 103–134; BP diastolic 42–99; PULSE 73–108; RESP 14–19; TEMP 36.6–37.3; O2SAT 91–100; BMI 22.5
[2018-09-18 01:04] LABS: HEMOLYSIS < 15 (0-50)
[2018-09-18 01:05] LABS: Potassium 6.8 mmol/L (3.4-5.1)
[2018-09-18] MEDS: INSULIN REGULAR 100 UNIT/ML 3 ML VIAL 10 UNIT IV (01:36)
[2018-09-18] MEDS: DEXTROSE 10 % IN WATER 500 ML IV (01:38)
[2018-09-18] MEDS: CEFTRIAXONE 2 GM/50 ML FROZ.PIGGY IV (02:08)
[2018-09-18 03:06] LABS: HEMOLYSIS < 15 (0-50)
[2018-09-18 03:17] LABS: Potassium 3.5 mmol/L (3.4-5.1)
[2018-09-18] MEDS: SODIUM CHLORIDE 0.9% 500 ML 1000 ML IV (04:00)
--- NOTE | 2018-09-18 04:08 | PC.NURSE ---
He ambulated to with steady gait for bm,became diaphoretic after and was assisted back to bed.Dr Younger assisted.He was able to stand and transfer from [facility] to [facility].
--- NOTE | 2018-09-18 04:54 | PM.HP.1 ---
History of Present Illness Date Patient Seen: 09/18/18 Time Patient Seen: 04:54 Chief complaint: ABN LABS - HIGH POTASSIUM Narrative: This is a 70-year-old male patient with history of hypertension, stroke, endocarditis status post aortic valve replacement BPH, GERD, bronchitis and hypercholesterolemia was referred to the ER today after routine laboratory monitoring found the patient had an elevated potassium of 6.4. The patient had been admitted to [facility] on July with a CVA. The patient was found to have an endocarditis with a vegetative heart valve and subsequently transferred to [facility] for treatment and aortic valve replacement and a CABG x2. The patient was discharged from [facility] on Friday, 1 week ago, and upon arriving felt unwell and presented to [facility] and was found to be in atrial fibrillation with rapid ventricular response. The patient was admitted to [facility] over the weekend. The patient was following up with routine laboratory monitoring with the finding of hyperkalemia. Upon arrival in the emergency department the patient was found to have potassium of 6.5. 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 While in the ER serial laboratory testing found potassium going from 6.5-6.6 to 6.8 despite interventions with Kayexalate, Lasix, albuterol and insulin with glucose. Ultimately, the potassium came down to 3.5 however the patient had a syncopal episode related to vasovagal in response to the Kayexalate. While in the ER the patient also had atrial fibrillation which which was converted with 10 mg of diltiazem. In review the [facility] records the patient was discharged on amiodarone 400 mg twice daily. It is unclear whether the patient got his p.m. dose of amiodarone. The patient reports symptoms of vertigo and dizziness manifesting with rapid movements or when riding in a car. He has not been treated for this condition. He otherwise denies headaches and reports no significant weakness or ataxia secondary to his stroke. He denies fevers or chills, nasal congestion or sore throat. Reports no cardiac chest pain though he has a median sternotomy which is healing cleanly without infection. He does have nausea associated with his vertigo but has not vomited. Prior to admission he had no complaints of diarrhea constipation. He has been able ambulate without assist devices. He has a healing graft donor site on the medial left leg. Patient History Medical History Essential hypertension (Chronic) Benign non-nodular prostatic hyperplasia without lower urinary tract symptoms (Chronic 05/02/15) Gastroesophageal reflux disease without esophagitis (Chronic 05/02/15) Simple chronic bronchitis (Chronic 05/02/15) Dysphagia (Chronic 10/16/15) Neck pain (Chronic 10/16/15) Erectile dysfunction (Chronic 03/14/17) Nonrheumatic aortic valve insufficiency (Chronic 03/14/17) Pure hypercholesterolemia (Chronic 03/14/17) Surgical History History of lithotripsy Status post rhinoplasty Status post rotator cuff repair Status post transurethral resection of prostate Family History Brother Age: 69 Crohn's disease without complication, unspecified gastrointestinal tract location Sister Age: 81 Cancer Sister Age: 80 Cancer Social History household members: spouse Smoking Status: Former smoker Family & Social History Family History Brother Age: 69 Crohn's disease without complication, unspecified gastrointestinal tract location Sister Age: 81 Cancer Sister Age: 80 Cancer Social History: household members spouse Safety & Behavioral: Feels Safe in Current Yes Environment Tobacco & Substance use: Smoking Status Former smoker alcohol intake frequency holiday/special occasion Substance Use Type does not use Meds Home Medications Medication Instructions Recorded Confirmed Type aspirin 243 mg PO BEDTIME #30 tab 02/06/16 09/17/18 History fluticasone propionate 1 spray INTRANASAL DAILY PRN #0 05/20/17 09/17/18 History albuterol sulfate [Ventolin HFA] 1 puff INH Q4HP PRN 08/14/18 09/17/18 History montelukast [Singulair] 10 mg PO DAILY 08/14/18 09/17/18 History amiodarone 400 mg PO SEEINSTR 09/17/18 09/17/18 History ibuprofen 800 mg PO TID PRN 09/17/18 09/17/18 History penicillin G pot in dextrose CONTINUOUS IV INFUSION 09/17/18 09/17/18 History rosuvastatin 20 mg PO DAILY 09/17/18 09/17/18 History sildenafil (antihypertensive) 20 mg PO DAILY PRN 09/17/18 09/17/18 History warfarin 5 mg PO DAILY 09/17/18 09/17/18 History Allergies Allergy/AdvReac Type Severity Reaction Status Date / Time morphine Allergy Severe TRIGGERS Verified 08/14/18 14:46 INSULIN PRODUCTION azithromycin Allergy Mild N/V Verified 08/14/18 14:46 cefuroxime Allergy Mild N/V Verified 08/14/18 14:46 etodolac Allergy Mild N/V Verified 08/14/18 14:46 Penicillins Allergy Mild N/V Verified 08/14/18 14:46 piroxicam Allergy Mild N/V Verified 08/14/18 14:46 CLASS: 28:04 - General Allergy Unknown SLOW Uncoded 12/04/17 11:19 Anesthetics RECOVERY Review of Systems Review of Systems All systems reviewed & are unremarkable except as noted in HPI and below Exam Vital Signs (past 8 hours): - 09/17/18 21:31 09/17/18 22:12 09/17/18 23:17 Pulse Rate 81 79 132 H Respiratory Rate 23 14 Blood Pressure Blood Pressure [Left Arm] 121/61 127/65 Pulse Oximetry 97 95 99 09/17/18 23:57 09/18/18 00:07 09/18/18 00:11 Pulse Rate 125 H 108 H 87 Respiratory Rate Blood Pressure 120/67 Blood Pressure [Left Arm] 104/53 L 106/63 Pulse Oximetry 97 97 09/18/18 01:02 09/18/18 01:46 09/18/18 02:35 Pulse Rate 86 85 83 Respiratory Rate 16 18 18 Blood Pressure Blood Pressure [Left Arm] 124/57 L 114/59 L 132/67 Pulse Oximetry 98 98 98 09/18/18 02:58 09/18/18 04:07 Pulse Rate 90 80 Respiratory Rate 18 16 Blood Pressure Blood Pressure [Left Arm] 134/72 111/78 Pulse Oximetry 99 97 Oxygen Delivery Method Room Air Narrative Exam Narrative: GENERAL APPEARANCE: well developed, well nourished, in no acute distress. HEAD: Normocephalic, atraumatic, no scalp lesions. EYES: Wearing glasses, pupils equal, round, reactive to light and accommodation, sclera non-icteric, extraocular movement intact without nystagmus. EARS: normal external structures, no ear pain NOSE: sinuses non tender to percussion, no rhinorrhea ORAL CAVITY: mucosa moist without lesions or exudate, palate normal, tongue in midline. THROAT: normal, no erythema, no exudate, pharynx normal, uvula midline. NECK/THYROID: neck supple, no jugular venous distention, no carotid bruit, no thyromegaly, trachea midline. LYMPH NODES: no cervical or supraclavicular lymphadenopathy. SKIN: warm and dry, no suspicious lesions, no rashes, good turgor. HEART: regular rate and rhythm, S1-S2 no murmur appreciated, no rubs or gallops, brisk capillary refill, no edema LUNGS: clear to auscultation bilaterally, no coarseness crackles or wheezing, no cough present CHEST: Healing midline sternotomy incision without signs of infection, symmetrical movement, no accessory muscle use, no pain to AP and lateral compression. ABDOMEN: Soft, no distention, no epigastric or abdominal tenderness on palpation, no guarding or peritoneal signs, no organomegaly, no flank or suprapubic tenderness BACK: Normal curvature, nontender to palpation EXTREMITIES: Healing inc graft donor site left leg without signs of infection, moves all extremities, inventory administrator are equal, strength is 5/5 and symmetrical, well perfused. NEUROLOGIC: AAO x4, no focal neurologic deficits, cranial nerves II-XII grossly intact, motor strength normal upper and lower extremities, sensory exam intact to light touch, hearing grossly normal to speech. PSYCH: Pleasant, alert, cognitive function intact, good eye contact, stable mood with congruent affect Objective Labs Result Diagrams: 09/17/18 20:30 09/18/18 02:50 Labs: Laboratory Results - last 24 hr 09/17/18 09/17/18 09/17/18 20:30 20:30 20:30 WBC 10.0 RBC 3.21 L Hgb 9.1 L Hct 27.7 L MCV 86.3 MCH 28.5 MCHC 33.0 RDW 17.4 H Plt Count 347 Neut % (Auto) 77.7 H Lymph % (Auto) 10.7 L Maury % (Auto) 6.6 Eos % (Auto) 3.7 Baso % (Auto) 1.3 Neut # (Auto) 7800 H Lymph # (Auto) 1100 Maury # (Auto) 700 Eos # (Auto) 400 Baso # (Auto) 100 PT 57.4 H INR 4.8 H* Sodium 136 L Potassium 6.6 H* Chloride 101 Carbon Dioxide 26 BUN 32 H Creatinine 1.30 H Estimated GFR 53.4 L BUN/Creatinine Ratio 24.6 H Glucose 119 H Calcium 8.5 Magnesium 1.9 Total Bilirubin 0.4 AST 28 ALT 37 Alkaline Phosphatase 77 Troponin I 0.022 Total Protein 7.3 Albumin 3.6 Globulin 3.7 Albumin/Globulin Ratio 1.0 09/18/18 09/18/18 00:50 02:50 WBC RBC Hgb Hct MCV MCH MCHC RDW Plt Count Neut % (Auto) Lymph % (Auto) Maury % (Auto) Eos % (Auto) Baso % (Auto) Neut # (Auto) Lymph # (Auto) Maury # (Auto) Eos # (Auto) Baso # (Auto) PT INR Sodium Potassium 6.8 H* 3.5 D Chloride Carbon Dioxide BUN Creatinine Estimated GFR BUN/Creatinine Ratio Glucose Calcium Magnesium Total Bilirubin AST ALT Alkaline Phosphatase Troponin I Total Protein Albumin Globulin Albumin/Globulin Ratio Assessment & Plan Assessment & Plan narrative: The patient is admitted to the hospital related to significant hyperkalemia initially resistant to treatment. Will require ongoing serial monitoring of potassium as well as glucose monitoring after insulin and glucose treatment. Due to the patient's complexity and high risk he is admitted to the ICU for continuous monitoring and frequent interventions. 1. Hyperkalemia, acute, improved -outpatient laboratory testing found the potassium to be 6.4 prompting referral to the hospital for treatment -ongoing question S the patient has a PICC line through which he has been receiving his penicillin potassium with question regarding false elevation of his potassium on line draws. Going forward labs for potassium will be drawn peripherally. Patient receiving penicillin G 24,000,000 units per day. ER physician consulted with pharmacy patient has 1.68 mEq of potassium per 1 million units for a daily dose of 40meq -patient treated with Kayexalate, Lasix 40 mg, albuterol nebulizers and insulin with glucose resulting in decrease in potassium to 3.5. -will monitor potassium and electrolytes with a BMP at 5:00 a.m. and recheck potassium at 8:00 a.m. as well as 11:00 a.m. to determine stability or need for further intervention -will do serial fingerstick blood sugars to monitor glucose every 2 hours over the next 6 hours 2. Streptococcal endocarditis, present on admission, active -patient has been on penicillin G as noted above. -the organism is found to be pansensitive and as such the penicillin G is discontinued to prevent further potassium buildup and is changed to ceftriaxone which the patient has received 2 g IV while in the ER -patient has home infusion pump and PICC line and capacity to continue IV treatment. 3. Atrial fibrillation, present on admission, active -the patient was admitted to [facility] 1 week ago with new onset atrial fibrillation with rapid ventricular response -the patient was evaluated by Dr. Farmer at [facility] -atrial fibrillation converted to sinus rhythm with a single dose of diltiazem 10 mg. -patient was discharged with plan for amiodarone 400 mg twice daily for 1 week followed by taper dosing, will continue current dosing regimen of amiodarone 400 mg twice daily -will also check a magnesium level and treat as necessary 4. Supratherapeutic INR, present on admission, acute -INR today is 4.8 with a PT of 57.4. Patient denies under ordered bleeding or bruising. -patient has been taking warfarin 5 mg daily which is now on hold -will obtain serial INRs and adjust warfarin as needed 5. Vertigo, present on arrival, active -patient reports vertigo with rapid movements and producing nausea. -will minimize stimulation -will try meclizine 25 mg evaluate for efficacy -Zofran as needed for nausea 6. 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 Status post CVA, resolved -patient with no evidence of residual neurological deficits The patient is admitted to the intensive care unit for severity of symptoms and critical lab values and high risk for potential complications. Critical care time: 35 minutes
--- NOTE | 2018-09-18 04:57 | P.HP_ITS ---
History of Present Illness Date Patient Seen: 09/18/18 Time Patient Seen: 04:54 Chief complaint: ABN LABS - HIGH POTASSIUM Narrative: This is a 70-year-old male patient with history of hypertension, stroke, endocarditis status post aortic valve replacement BPH, GERD, bronchitis and hypercholesterolemia was referred to the ER today after routine laboratory monitoring found the patient had an elevated potassium of 6.4. The patient had been admitted to [facility] on July with a CVA. The patient was found to have an endocarditis with a vegetative heart valve and subsequently transferred to [facility] for treatment and aortic valve replacement and a CABG x2. The patient was discharged from [facility] on Friday, 1 week ago, and upon arriving felt unwell and presented to [facility] and was found to be in atrial fibrillation with rapid ventricular response. The patient was admitted to [facility] over the weekend. The patient was f ollowing up with routine laboratory monitoring with the finding of hyperkalemia. Upon arrival in the emergency department the patient was found to have potassium of 6.5. 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 While in the ER serial laboratory testing found potassium going from 6.5-6.6 to 6.8 despite interventions with Kayexalate, Lasix, albuterol and insulin with glucose. Ultimately, the potassium came down to 3.5 however the patient had a syncopal episode related to vasovagal in response to the Kayexalate. While in the ER the patient also had atrial fibrillation which which was converted with 10 mg of diltiazem. In revie w the [facility] records the patient was discharged on amiodarone 400 mg twice daily. It is unclear whether the patient got his p.m. dose of amiodarone. The patient reports symptoms of vertigo and dizziness manifesting with rapid movements or when riding in a car. He has not been treated for this condition. He otherwise denies headaches and reports no significant weakness or ataxia secondary to his stroke. He denies fevers or chills, nasal congestion or sore throat. Reports no cardiac chest pain though he has a median sternotomy which is healing cleanly without infection. He does have nausea associated with his vertigo but has not vomited. Prior to admission he had no complaints of diarrhea constipation. He has been able ambulate without assist devices. He has a healing graft donor site on the medial left leg. Patient History Medical History Essential hypertension (Chronic) Benign non-nodular prostatic hyperplasia without lower urinary tract symptoms (Chronic 05/02/15) Gastroesophageal reflux disease without esophagitis (Chronic 05/02/15) Simple chronic bronchitis (Chronic 05/02/15) Dysphagia (Chronic 10/16/15) Neck pain (Chronic 10/16/15) Erectile dysfunction (Chronic 03/14/17) Nonrheumatic aortic valve insufficiency (Chronic 03/14/17) Pure hypercholesterolemia (Chronic 03/14/17) Surgical History History of lithotripsy Status post rhinoplasty Status post rotator cuff repair Status post transurethral resection of prostate Family History Brother Age: 69 Crohn's disease without complication, unspecified gastrointestinal tract location Sister Age: 81 Cancer Sister Age: 80 Cancer Social History household members: spouse Smoking Status: Former smoker Family & Social History Family History Brother Age: 69 Crohn's disease without complication, unspecified gastrointestinal tract location Sister Age: 81 Cancer Sister Age: 80 Cancer Social History: household members spouse Safety & Behavioral: Feels Safe in Current Yes Environment Tobacco & Substance use: Smoking Status Former smoker alcohol intake frequency holiday/special occasion Substance Use Type does not use Meds Home Medications Medication Instructions Recorded Confirmed Type aspirin 243 mg PO BEDTIME #30 tab 02/06/16 09/17/18 History fluticasone propionate 1 spray INTRANASAL DAILY PRN #0 05/20/17 09/17/18 History albuterol sulfate [Ventolin HFA] 1 puff INH Q4HP PRN 08/14/18 09/17/18 History montelukast [Singulair] 10 mg PO DAILY 08/14/18 09/17/18 History amiodarone 400 mg PO SEEINSTR 09/17/18 09/17/18 History ibuprofen 800 mg PO TID PRN 09/17/18 09/17/18 History penicillin G pot in dextrose CONTINUOUS IV INFUSION 09/17/18 09/17/18 History rosuvastatin 20 mg PO DAILY 09/17/18 09/17/18 History sildenafil (antihypertensive) 20 mg PO DAILY PRN 09/17/18 09/17/18 History warfarin 5 mg PO DAILY 09/17/18 09/17/18 History Allergies Allergy/AdvReac Type Severity Reaction Status Date / Time morphine Allergy Severe TRIGGERS Verified 08/14/18 14:46 INSULIN PRODUCTION azithromycin Allergy Mild N/V Verified 08/14/18 14:46 cefuroxime Allergy Mild N/V Verified 08/14/18 14:46 etodolac Allergy Mild N/V Verified 08/14/18 14:46 Penicillins Allergy Mild N/V Verified 08/14/18 14:46 piroxicam Allergy Mild N/V Verified 08/14/18 14:46 CLASS: 28:04 - General Allergy Unknown SLOW Uncoded 12/04/17 11:19 Anesthetics RECOVERY Review of Systems Review of Systems All systems reviewed & are unremarkable except as noted in HPI and below Exam Vital Signs (past 8 hours): - 09/17/18 21:31 09/17/18 22:12 09/17/18 23:17 Pulse Rate 81 79 132 H Respiratory Rate 23 14 Blood Pressure Blood Pressure [Left Arm] 121/61 127/65 Pulse Oximetry 97 95 99 09/17/18 23:57 09/18/18 00:07 09/18/18 00:11 Pulse Rate 125 H 108 H 87 Respiratory Rate Blood Pressure 120/67 Blood Pressure [Left Arm] 104/53 L 106/63 Pulse Oximetry 97 97 09/18/18 01:02 09/18/18 01:46 09/18/18 02:35 Pulse Rate 86 85 83 Respiratory Rate 16 18 18 Blood Pressure Blood Pressure [Left Arm] 124/57 L 114/59 L 132/67 Pulse Oximetry 98 98 98 09/18/18 02:58 09/18/18 04:07 Pulse Rate 90 80 Respiratory Rate 18 16 Blood Pressure Blood Pressure [Left Arm] 134/72 111/78 Pulse Oximetry 99 97 Oxygen Delivery Method Room Air Narrative Exam Narrative: GENERAL APPEARANCE: well developed, well nourished, in no acute distress. HEAD: Normocephalic, atraumatic, no scalp lesions. EYES: Wearing glasses, pupils equal, round, reactive to light and accommodation, sclera non-icteric, extraocular movement intact without nystagmus. EARS: normal external structures, no ear pain NOSE: sinuses non tender to percussion, no rhinorrhea ORAL CAVITY: mucosa moist without lesions or exudate, palate normal, tongue in midline. THROAT: normal, no erythema, no exudate, pharynx normal, uvula midline. NECK/THYROID: neck supple, no jugular venous distention, no carotid bruit, no thyromegaly, trachea midline. LYMPH NODES: no cervical or supraclavicular lymphadenopathy. SKIN: warm and dry, no suspicious lesions, no rashes, good turgor. HEART: regular rate and rhythm, S1-S2 no murmur appreciated, no rubs or gallops, brisk capillary refill, no edema LUNGS: clear to auscultation bilaterally, no coarseness crackles or wheezing, no cough present CHEST: Healing midline sternotomy incision without signs of infection, symmetrical movement, no accessory muscle use, no pain to AP and lateral compression. ABDOMEN: Soft, no distention, no epigastric or abdominal tenderness on palpation, no guarding or peritoneal signs, no organomegaly, no flank or dickey prapubic tenderness BACK: Normal curvature, nontender to palpation EXTREMITIES: [employer]aling [employer] graft donor site left leg without signs of infection, moves all extremities, manager casino are equal, strength is 5/5 and symmetrical, well perfused. NEUROLOGIC: AAO x4, no focal neurologic deficits, cranial nerves II-XII grossly intact, motor strength normal upper and lower extremities, sensory exam intact to light touch, hearing grossly normal to speech. PSYCH: Pleasant, alert, cognitive function intact, good eye contact, stable mood with congruent affect Objective Labs Result Diagrams: 09/17/18 20:30 09/18/18 02:50 Labs: Laboratory Results - last 24 hr 09/17/18 09/17/18 09/17/18 20:30 20:30 20:30 WBC 10.0 RBC 3.21 L Hgb 9.1 L Hct 27.7 L MCV 86.3 MCH 28.5 MCHC 33.0 RDW 17.4 H Plt Count 347 Neut % (Auto) 77.7 H Lymph % (Auto) 10.7 L Traverse % (Auto) 6.6 Eos % (Auto) 3.7 Baso % (Auto) 1.3 Neut # (Auto) 7800 H Lymph # (Auto) 1100 Traverse # (Auto) 700 Eos # (Auto) 400 Baso # (Auto) 100 PT 57.4 H INR 4.8 H* Sodium 136 L Potassium 6.6 H* Chloride 101 Carbon Dioxide 26 BUN 32 H Creatinine 1.30 H Estimated GFR 53.4 L BUN/Creatinine Ratio 24.6 H Glucose 119 H Calcium 8.5 Magnesium 1.9 Total Bilirubin 0.4 AST 28 ALT 37 Alkaline Phosphatase 77 Troponin I 0.022 Total Protein 7.3 Albumin 3.6 Globulin 3.7 Albumin/Globulin Ratio 1.0 09/18/18 09/18/18 00:50 02:50 WBC RBC Hgb Hct MCV MCH MCHC RDW Plt Count Neut % (Auto) Lymph % (Auto) Traverse % (Auto) Eos % (Auto) Baso % (Auto) Neut # (Auto) Lymph # (Auto) Traverse # (Auto) Eos # (Auto) Baso # (Auto) PT INR Sodium Potassium 6.8 H* 3.5 D Chloride Carbon Dioxide BUN Creatinine Estimated GFR BUN/Creatinine Ratio Glucose Calcium Magnesium Total Bilirubin AST ALT Alkaline Phosphatase Troponin I Total Protein Albumin Globulin Albumin/Globulin Ratio Assessment & Plan Assessment & Plan narrative: The patient is admitted to the hospital related to significant hyperkalemia initially resistant to treatment. Will require ongoing serial monitoring of potassium as well as glucose monitoring after insulin and glucose treatment. Due to the patient's complexity and high risk he is admitted to the ICU for continuous monitoring and frequent interventions. 1. Hyperkalemia, acute, improved -outpatient laboratory testing found the potassium to be 6.4 prompting referral to the hospital for treatment -ongoing question S the patient has a PICC line through which he has been receiving his penicillin potassium with question regarding false elevation of his potassium on line draws. Going forward labs for potassium will be drawn peripherally. Patient receiving penicillin G 24,000,000 units per day. ER sasha medina consulted with pharmacy patient has 1.68 mEq of potassium per 1 million units for a daily dose of 40meq -patient treated with Kayexalate, Lasix 40 mg, albuterol nebulizers and insulin with glucose resulting in decrease in potassium to 3.5. -will monitor potassium and electrolytes with a BMP at 5:00 a.m. and recheck potassium at 8:00 a.m. as well as 11:00 a.m. to determine stability or need for further intervention -will do serial fingerstick blood sugars to monitor glucose every 2 hours over the next 6 hours 2. Streptococcal endocarditis, present on admission, active -patient has been on penicillin G as noted above. -the organism is found to be pansensitive and as such the penicillin G is discontinued to prevent further potassium buildup and is changed to ceftriaxone which the patient has received 2 g IV while in the ER -patient has home infusion pump and PICC line and capacity to continue IV treatment. 3. Atrial fibrillation, present on admission, active -the patient was admitted to [facility] 1 week ago with new onset atrial fibrillation with rapid ventricular response -the patient was evaluated by Dr. Farmer at [facility] -atrial fibrillation converted to sinus rhythm with a single dose of diltiazem 10 mg. -patient was discharged with plan for amiodarone 400 mg twice daily for 1 week followed by taper dosing, will continue current dosing regimen of amiodarone 400 mg twice daily -will also check a magnesium level and treat as necessary 4. Supratherapeutic INR, present on admission, acute -INR today is 4.8 with a PT of 57.4. Patient denies under ordered bleeding or bruising. -patient has been taking warfarin 5 mg daily which is now on hold -will obtain serial INRs and adjust warfarin as needed 5. Vertigo, present on arrival, active -patient reports vertigo with rapid movements and producing nausea. -will minimize stimulation -will try meclizine 25 mg evaluate for efficacy -Zofran as needed for nausea 6. 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 Status post CVA, resolved -patient with no evidence of residual neurological deficits The patient is admitted to the intensive care unit for severity of symptoms and critical lab values and high risk for potential complications. Critical care time: 35 minutes
--- NOTE | 2018-09-18 05:11 | PC.NURSE ---
His b/p improved after 500 ml fluid bolus here in the ED.He remained alert,oriented x3,pain free,and sr on cm.
[2018-09-18] MEDS: ACETAMINOPHEN 325 MG TABLET 650 MG PO (05:44)
[2018-09-18] MEDS: SODIUM CHLORIDE 0.9% 1,000 ML 75 ML IV ×2 (05:45→12:29)
[2018-09-18 06:26] LABS: BUN Creatinine Ratio 24.2 (6-22); Blood Urea Nitrogen 29 mg/dL (9-20); Calcium 8.5 mg/dL (8.4-10.2); Carbon Dioxide 31 mmol/L (22-32); Chloride 100 mmol/L (98-107); Estimated Glomerular Filt Rate 58.6 mL/min (>60); Glucose 86 mg/dL (80-110); HEMOLYSIS < 15 (0-50); Potassium 3.6 mmol/L (3.4-5.1); Sodium 136 mmol/L (137-145)
[2018-09-18 09:23] LABS: HEMOLYSIS < 15 (0-50)
[2018-09-18 09:27] LABS: Magnesium 1.9 mg/dL (1.6-2.3)
[2018-09-18] MEDS: ROSUVASTATIN 10 MG TABLET 20 MG PO (09:52)
[2018-09-18] MEDS: AMIODARONE 200 MG TABLET 400 MG PO ×2 (09:53→21:29)
[2018-09-18 10:50] LABS: INR 3.8 (0.9-1.3); Prothrombin Time 44.9 SECONDS (10.1-12.7)
[2018-09-18 11:26] LABS: HEMOLYSIS < 15 (0-50); Potassium 3.9 mmol/L (3.4-5.1)
--- NOTE | 2018-09-18 12:02 | OT.IP.EVAL ---
Current Diagnoses Hyperkalemia (09/18/18) Past Medical History (Last Reviewed 09/18/18 @ 05:38 by YAMILE Cohen) Essential hypertension (Chronic) Benign non-nodular prostatic hyperplasia without lower urinary tract symptoms (Chronic 05/02/15) Gastroesophageal reflux disease without esophagitis (Chronic 05/02/15) Simple chronic bronchitis (Chronic 05/02/15) Dysphagia (Chronic 10/16/15) Neck pain (Chronic 10/16/15) Erectile dysfunction (Chronic 03/14/17) Nonrheumatic aortic valve insufficiency (Chronic 03/14/17) Pure hypercholesterolemia (Chronic 03/14/17) Surgical History (Last Reviewed 09/18/18 @ 05:38 by YAMILE Cohen) History of lithotripsy Status post rhinoplasty Status post rotator cuff repair Status post transurethral resection of prostate Occupational Therapy Inpatient Evaluation/Re-Eval M1 PT/OT-IP Prior Functional Status Start: 09/18/18 12:12 Freq: NEEDED Status: Active Protocol: Document 09/18/18 12:02 [email or web address] (Rec: 09/18/18 14:54 PJM [id number]) Medical Review Prior Functional Status Medical History Reviewed Yes Diet/Fluid Consistency Regular Communication slight SHOALWATER. No deficits noted. Able to make needs known. Mobility and Gait Pt states has been ambulating without an assistive device. Activities of Daily Living and IADL's Pt states has been assisting with socks, shoes, all IADLS and driving since he discharged from [facility] 09/11/18. Prior Functional Level (Other details) Pt was independent with all self care, IADLS, driving prior to stroke on 09/11/18. Social History Household Members spouse Living Arrangements House Number of Floors (Floors) Two Floors Number of Stairs To Enter/Railing? Per previous admit chart review, pt has 1 stair to enter through garage with no rail. He has 17 stairs with chair lift up to bedroom level. Home Environment Standard Height Toilet Walk in Shower Home Equipment Shower Seat without Backrest Grab Bars In Shower Employment Status Retired Additional Social History Comment No family here to confirm home situation or pt's current level of function within sternal precautions. Pt has complex medical hx including admit at [facility] 08/14-08/15/18 with stroke ( R parietal, temporal, frontal). Pt found to have cognitive deficits, decreased attention to surroundings and impulsivity but was able to ambulate without a devices and no obvious focal weakness. Pt diagnosed with endocarditis and was transferred to [facility] where he had AVR and CABG x2 on 09/03/18. Pt discharged to home on 09/11/18 but by the time he arrived home, he felt unwell and was admitted to [facility] with new onset AFIB. Pt had routine MD appointment with lab work on 09/17 and found to have very high Potassium and AFIB. Pt admitted to [facility] and currently in ICU. M2 OT-IP Current Condition Start: 09/18/18 14:28 Freq: Status: Active Protocol: Document 09/18/18 12:02 PJM (Rec: 09/18/18 14:54 PJM [id number]) Occupational Therapy Current Condition Current Condition Evaluation Date 09/18/18 Treatment Diagnosis decreased mobility,self care, impulsivity s/p recent stroke, AVR/CABG, AFIB Diagnosis Onset Date 09/18/18 Post Operative Precautions Other Precautions sternal, impulsive, fall risk, cardiac arrythmias, AFIB M3 OT- IP Subjective and Pain Start: 09/18/18 14:28 Freq: Status: Active Protocol: Document 09/18/18 12:02 PJM (Rec: 09/18/18 14:54 PJM [id number]) OT- Subjective Occupational Therapy Visit Type Type Initial Evaluation Visit Start Time 11:36 Visit Stop Time 12:02 Total Visit Minutes 26 Notes Partial co eval with [facility] [employer] negative this session, but eval halted by RN due to increased HR, arrythmias and RN called for STAT EKG. Occupational Therapy Visit Comments Patient Comments Don't take away my heart pillow. I have to have that. Patient/Caregiver Goals to get out of hospitals and go home. I have been to 3 hospitals in one month. OT Pain Assessment Pain When Pain Assessed After Treatment Pain Present Pain Present Denied Pain M4 OT- IP ADL's Start: 09/18/18 14:28 Freq: Status: Active Protocol: Document 09/18/18 12:02 PJM (Rec: 09/18/18 14:54 PJM [id number]) OT [id number] General Evaluation Self-Feeding Ability Independent OT ADL-Grooming Comments OT Grooming Comments to be assessed OT ADL-Oral Care Comments Oral Care Comments to be assessed OT ADL-Dressing General Eval Lower Body Dressing Ability Total Assistance Areas Needing Assistance Socks OT ADL-Toileting Comments OT Toileting Comments pt declined need this session OT ADL-Bathing Comments OT Bathing Comments to be assessed as activity tolerance improves M5 OT- IP IADL's Start: 09/18/18 14:28 Freq: Status: Active Protocol: Document 09/18/18 12:02 PJM (Rec: 09/18/18 14:54 PJ [id number]) OT-Instrumental Activities of Daily Living Deficits IADL Deficits Identified Deficits Home Safety Awareness Home Safety Comments not here to confirm home situation Driving Driving Comments has been driving since stroke M6 OT- IP Functional Cognition Start: 09/18/18 14:28 Freq: Status: Active Protocol: Document 09/18/18 12:02 PJM (Rec: 09/18/18 14:54 PJ [id number]) Cognitive Factors Limiting Selfcare Function Cognitive Ability Level of Alertness Alert Patient Orientation Name Place Situation Attention Span Ability Capable of Focused Attention Unable to Sustain Attention Ability to Follow Commands Able to Follow One Step Commands Safety Awareness Decreased Ability to Apply Precautions Underestimates Need for Assistance Problem Solving Ability Needs Assist to Identify Solutions Cognitive Comments Cognitive Assessment Comments Pt able to give hx of recent events but presents with decreased attention/ concentration, moves impulsively. Pt scored 16/30 on SLUMS during last admit on 09/11/18-. Further assessment to follow. OT- Vision and Hearing OT- Hearing Assessment OT- Hearing Assessment Hearing Impaired OT- Vision Assessment Visual Acuity Glasses All The Time Vision Assessment Comments Pt mildly SHOALWATER. Pt wears bifocals. M7 OT- IP Mobility and Balance Start: 09/18/18 14:28 Freq: Status: Active Protocol: Document 09/18/18 12:02 PJM (Rec: 09/18/18 14:54 PJ [id number]) OT- Bed Mobility Assessment Rolling Type of Rolling Roll to Left Level of Assistance Standby Assistance Supine to Sit Supine to Sit Assist Standby Assistance Scooting Scooting to Edge of Bed Standby Assistance OT-Transfer Assessment Sit to and From Stand Sit to and from Stand Contact Guard Assistance Comments Mobility Comments Pt stood at bedside for orthostatics which were negative. RN then requesting no further tx due to increased HR, arrythmias and ordered STAT EKG. OT- Gait Assessment Comments Gait Ability Comments to be assessed as medical status permits OT- Balance Assessment Sitting Balance and Reactions Static Sitting Balance Ability Good Standing Balance and Reactions Static Standing Balance Ability Good M8 OT- IP Objective Assessments Start: 09/18/18 14:28 Freq: Status: Active Protocol: Document 09/18/18 12:02 PJM (Rec: 09/18/18 14:54 PJ [id number]) OT Gross Range of Motion Upper Extremity Range of Motion ROM Impairments appears WFL by observation this session but further assessment to follow OT Strength Hand Elementary Supervisor Strength Hand Dominance Right Comments Strength Comments Pt at least 3/5 in BUE with no obvious focal weakness OT- Coordination Assessment Comments Coordination Comments Mild B hand tremor noted this session OT Sensation Assessment Comments Summary Comments Pt denies sensory deficits in either UE. Edema Edema Absent M9 OT- IP Assessment and Plan Start: 09/18/18 14:28 Freq: Status: Active Protocol: Document 09/18/18 12:02 PJM (Rec: 09/18/18 14:54 PJM [id number]) OT Summary Assessment and Plan Potential Rehabilitation Potential Good Analytic Complexity at Evaluation Moderate Summary OT Impairments Strength Balance Coordination Functional Cognition Functional Mobility Grooming Dressing Toileting Bathing Toilet Transfers Shower Transfers Assessment Summary Moderate complexity OT assessment due to complex medical hx and need for additional chart review as well as medical status in ICU. Pt currently has performance deficits in activity tolerance due to cardiac issues with decreased independence in all functional mobility/transfers, standing grooming, dressing, bathing and toileting. He appears to have deficits in attention/concentration with impulsivity noted. Further assessment to follow in all areas as today's evaluation cut short by RN due to cardiac arrythmias requiring return to bed. Will update goals as needed. Anticipate pt will be able to return home with when medically stable. Goals Grooming Goal Independent Dressing Goal Independent Toileting Goal Independent Bathing Goal Standby Assistance Toilet Transfer Goal Independent Shower Transfer Goal Standby Assistance Patient/Caregiver Education Goal Demonstrate Post-Op Precautions Demonstrate Energy Conservation and Pacing Caregiver Independent Assisting Patient OT-Other Goals Grooming to be done standing at sink with no loss of balance and good safety awareness. Days to Meet Goals 5 Frequency of Treatment Frequency Of Treatment Once a Day Treatment Plan OT Treatment Plan ADL Training Functional Mobility Patient/Family Education Discharge Planning Discharge Recommendations OT Discharge Recommendations Home with 13/01 Assist Home Equipment Needs to be determined pending progress
--- NOTE | 2018-09-18 12:32 | PT.IIE ---
Surgical History (Last Reviewed 09/18/18 @ 05:38 by YAMILE Cohen) History of lithotripsy Status post rhinoplasty Status post rotator cuff repair Status post transurethral resection of prostate Medical History (Last Reviewed 09/18/18 @ 05:38 by YAMILE Cohen) Essential hypertension (Chronic) Benign non-nodular prostatic hyperplasia without lower urinary tract symptoms (Chronic 05/02/15) Gastroesophageal reflux disease without esophagitis (Chronic 05/02/15) Simple chronic bronchitis (Chronic 05/02/15) Dysphagia (Chronic 10/16/15) Neck pain (Chronic 10/16/15) Erectile dysfunction (Chronic 03/14/17) Nonrheumatic aortic valve insufficiency (Chronic 03/14/17) Pure hypercholesterolemia (Chronic 03/14/17) Physical Therapy Inpatient Evaluation/Re-Eval M1 PT/OT-IP Prior Functional Status Start: 09/18/18 12:12 Freq: NEEDED Status: Active Protocol: Document 09/18/18 11:00 (Rec: 09/18/18 12:32 [email or web address]) Medical Review Prior Functional Status Medical History Reviewed Yes Communication slight KIVALINA. No deficits noted. Able to make needs known. Mobility and Gait see social hx Activities of Daily Living and IADL's See social hx. Social History Household Members spouse Living Arrangements House Number of Floors (Floors) Two Floors Number of Stairs To Enter/Railing? 2 SHAREE with railings, 1 SHAERE from garage 17 SHAREE to bedroom level B railings Home Environment Standard Height Toilet Walk in Shower Home Equipment Grab Bars In Shower Employment Status Retired Additional Social History Comment Pt lives with his in 2 story home. 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 The patient was discharged from [facility] on Friday, 1 week ago, and upon arriving felt unwell and presented to [facility] and was found to be in atrial fibrillation with rapid ventricular response. The patient was admitted to [facility] over the weekend. He has been able ambulate without assist devices M2 PT-IP Current Condition Start: 09/18/18 12:12 Freq: NEEDED Status: Active Protocol: Document 09/18/18 11:00 HH (Rec: 09/18/18 12:32 [email or web address]) Physical Therapy Current Condition Current Condition Evaluation Date 09/18/18 Treatment Diagnosis Hyperkalemia, A-fib, impaired gait and activity tolerane Onset Date 09/18/18 Precautions Other Precautions Sternal precautions with pillow Weight Bearing Status Weight Bearing Status Weight Bear as Tolerated M3 PT-IP Subjective Start: 09/18/18 12:12 Freq: NEEDED Status: Active Protocol: Document 09/18/18 11:00 (Rec: 09/18/18 12:32 [email or web address]) Subjective Physical Therapy Visit Type Type Initial Evaluation Visit Start Time 11:00 Visit Stop Time 11:45 Total Visit Minutes 45 Notes Per RN, to monitor pt's orthostatic hypotension. Pt got up to bathroom without AD this am but he felt like he almost black out with sudden increased weakness. Number of DEFENSE ANALYST Visits 0 Physical Therapy Visit Comments Patient Comments I feel very heavy at this point. I cant move my body like i used to. Patient Goals To return home Therapy Pain Assessment Pain Present Pain Present Denied Pain M4 PT-IP Mobility and Gait Start: 09/18/18 12:12 Freq: NEEDED Status: Active Protocol: Document 09/18/18 11:00 (Rec: 09/18/18 12:32 [email or web address]) PT-Bed Mobility Assessment Rolling Type of Rolling Roll to Right Level of Assist Contact Guard Assistance Supine to Sit Supine to Sit Contact Guard Assistance Bedrails Sit to Supine Sit to Supine Contact Guard Assistance Bedrails Scooting Scooting to Edge of Bed Standby Assistance Scooting Up and Down in Bed Standby Assistance PT-Transfer Assessment Sit to and From Stand Sit to and from Stand Contact Guard Assistance Minimal Assistance Use of Upper Extremities Equipment Transfer Assistive Device Gait Belt Front Wheeled Walker Orthotic/Prosthetic Devices or Brace: No Transfers Transfer Destination Bed Chair Transfer Technique Stand Step Pivot Transfer Ability Level of Assist Contact Guard Assistance Minimal Assistance Use of Upper Extremities Comments Mobility Comments 1st time getting OOB : supine BP 112/54 seated BP 108/50 standing BP 106/52 2nd time OOB: supine 112/62 seated 114/64 standing 133/62 Pt used his pillow for sternal compression during supine to sit and sit to stand. Pt appeared to be slightly impulsive and often needed cues to slow him down. Pt appeared very weak for first getting OOB with his UEs and LEs shaking upon exertion which require min A overall without AD. But he was able to perform better for 2nd time with CGA. Gait Assessment Comments Gait Comments did not attempt due to abnormalities on heart rhythm per RN report. Stair Climbing Assessment Comments Stair Climbing Comments did not attempt due to abnormalities on heart rhythm per RN report. PT-Balance Assessment Sitting Balance and Reactions Static Sitting Balance Ability Normal Dynamic Sitting Balance Ability Normal Standing Balance and Reactions Static Standing Balance Ability Good Dynamic Standing Balance Ability Good M5 PT-IP Objective Assessments Start: 09/18/18 12:12 Freq: NEEDED Status: Active Protocol: Document 09/18/18 11:00 (Rec: 09/18/18 12:32 [email or web address]) Orientation Orientation/Cognition Level of Alertness Alert Orientation Name Age Birthday Month Date Year Day of Week Place Situation Language Function Ability No Deficits Noted Hard of Hearing Safety Awareness Understands Safety Issues Memory Description No Deficits Noted Gross Range of Motion Upper Extremity ROM Assessment Within Functional Limits Lower Extremity ROM Assessment Within Functional Limits Strength Upper Extremity Strength Assessment Bilaterally Impaired Lower Extremity Strength Assessment Bilaterally Impaired Comments Strength Comments B UEs/LEs MMT 3+/5 Pt appears very shaky upon assessment. Coordination Assessment Gross Coordination Gross Coordination WNL Sensation Assessment Sensation Gross Sensation WNL Light Touch Intact Proprioception (Position) Intact Muscle Tone Muscle Tone WNL Yes M6 PT-IP Treatment Start: 09/18/18 12:12 Freq: NEEDED Status: Active Protocol: Document 09/18/18 11:00 (Rec: 09/18/18 12:32 [email or web address]) Physical Therapy Treatment Education Education Provided Safety M7 PT-IP Assessment and Plan Start: 09/18/18 12:12 Freq: NEEDED Status: Active Protocol: Document 09/18/18 11:00 (Rec: 09/18/18 12:32 [email or web address]) PT Summary Assessment and Plan Potential Rehabilitation Potential Good Status of Condition at Evaluation Evolving Summary Impairments Strength Balance Sensation Bed Mobility Transfers Gait Activity Tolerance Assessment Summary Pt is a pleasant 78 yo male admitted to ER due to hyperkalemia, A- fib and increased weakness. Pt appears very weak with his very shaky B UEs and LEs upon exertion for bed mobility and sit to stand. Pt stated he got weaker after his BW early this morning. Pt was able to maintain his sternal precautions with the use of pillow for transfers and coughing. But he tends to be slightly impulsive and required cues to slow him down and remind him of safety awareness. Pt did not amb today due to noticeable abnormalities of his heart rhythm and RN Thor requested bed rest for pt at this point. Pt is far from his baseline at this point and might require short term SNF to improve his overall mobility prior to d/c home. Goals Bed Mobility Goal Independent Transfer Goal Independent Gait Goal Independent Gait Distance 100 Other Goals climb 2 steps w/o rails Days to Meet Goals 5 Frequency of Treatment Frequency Of Treatment Once a Day Treatment Plan Physical Therapy Treatment Plan Bed Mobility Training Transfer Training Gait Training Therapeutic Exercise Balance Retraining Post Op Education Discharge Planning Hot or Cold Pack Other Recommendations and Next Treatment close monitor pt's VSS Focus educate pt to use log roll transfer / gait training as yumiko if possible Recommendations To Nursing Amount of Assist Needed 1 Person Assist Discharge Recommendations PT Discharge Recommendations SNF Rehab
--- NOTE | 2018-09-18 13:56 | CM.DANOTE ---
Addendum entered by Belem Negrete LPN 09/18/18 16:21: Have not yet received answer from [facility] re the authorization for the new antibiotic. DCP for weekend can follow up with [facility] Shanika: desk # [phone] . Shanika will be on over the weekend or the main #: [phone]. Pt's may have heard from them by tomorrow also so would recommend following up with her. Original Note: Discharge Planning/Care Management DCP: assessment: Case received, EMR reviewed and spoke with Dr. Bowers. Met then with pt and spoke with his Marva by phone. Introduced self and role. Pt is a 78 year old male who has been in and out of various hospitals and ERs since his last admission here in July. Admitted to care of the hospitalist team early this mornin. Payer: Medicare and [facility] PCP: Dr. Chuy Tenorio, now at the [facility] in [place], per pt and . He has been at home on and off since July recovering from heart surgery and receiving IV antibiotics set up by infectious disease specialist with vendor [facility]. Payer: his Medicare Part D Plan Dr. Bowers states that pt is stable for d/c as soon as the new IV antibiotic can be set up appropriately. She stated she had conferred with infectious disease specialist and the drug and dose would be as per the H&P. Called pt's Marva at the home #. She noted that she had been on the phone with various providers involved in the 's care and confirmed she had spoken with [facility]: [place] branch: [phone]. Called [facility] and spoke with pharmacist Lilian. She was familiar with pt. Discussed case and sent over the H&P completed by [facility] hospitalist Samir Braden early this morning. Dose given 0200 in ER and next to be given 0200 09/19. Lilian notes that for home the time would more likely be 0700. P: H&P is faxed to Lilian: [phone]. Dr. Bowers's notes are not yet available. Lilian is also going to discuss the specifics with the contact they have partnered with at the ID program since Dr. Bowers's discussion with them is not yet documented. Lilian is referring to the business office of [place] to start the referral process for the antibiotic change. She is available until 1430 and should have an answer before then. P: pt could either stay overnight and receive his dose at 0700 3 (instead of 0200 so that he will be on a doable home plan) or d/c home this evening if auth is in place. Marva does say that she was hopeful her would be kept overnight but is aware that the d/c date will be up to Dr. Bowers. Dr. Bowers is updated; says that pt will d/c'd when the antibiotic is auth'd, either this evening or tomorrow. Admission status: confirmed OBS: per Dr. Bowers and UR CHEMO Rider. CM Discharge Assessment Start: 09/18/18 13:54 Freq: Status: Active Protocol: Document 09/18/18 13:54 ITV (Rec: 09/18/18 13:55 ITV [email or web address]) Discharge Planning Assessment Advance Directives? Yes: Medical records Advance Directives on File Yes History Provided By Patient Family Member Medical Record Comment Pt was last here in Jul 2018 with a transfer to the [facility] Prior Living Arrangements House Household Members spouse Is patient alert and oriented? Yes Comment chair lift inside home to second floor Whiteboard Updated in Patient Room with Yes name and ext. # of Sheeter Machine Operator Review Status In Process Next Review Type Continued Stay Review
--- NOTE | 2018-09-18 14:27 | P.EN_ITS ---
Date Patient Seen: 09/18/18 Patient seen and examined. Reviewed his chart. Patient presented with hyperkalemia. 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 The PCN G infusion has 40 meq of KCL and was felt to be the culprit. He was switched to IV Ceftriaxone 2 grams per day. His potassium has normalized. He has no specific complaints. I spoke to the Infection disease who agreed with the antibiotic choice. The patient is being followed by [facility] infusion who needs to get insurance authorization before they can resume care. His IV fluids have been discontinued, He will get another dose in the morning and home infusion services will begin on Friday morning. He is on tapering dose of amiodarone. The patient has had intermittant ectopy and arrhythmias that quickly resolved. Anticipate discharge home either later today or tomorrow.
--- NOTE | 2018-09-18 15:22 | PC.NURSE ---
1155- PT in to work with pt. BP 112/59 (75) and HR 98. Denies dizziness, lightheadedness, chest pain, chest pressure. Noted ST changes on bedside monitor and obtained EKG per nursing protocol. Pt was repositioned in bed for EKG and rhythm had gone back to SR 1 AVB BBB with frequent PACs. Dr. Bowers notified of changes.
--- NOTE | 2018-09-18 18:43 | PC.NURSE ---
Addendum entered by Marlen Babb R.N. 09/18/18 21:50: 2130 - Pt resting quietly, continues to deny pain. I feel pretty good. Requesting singular, I take it every night. AUTO SALVAGE WORKERBraulio notified, orders obtained. Snack provided. Educated to night routine and continued treatment plan. Pt verbalized understanding. Call light in reach. Original Note: 1630 - Pt resting quietly in bed. Denies pain. Expressing concerns with being discharged to soon, explaining frequent re-hospitalizations. Pt calm and cooperative. Reviewed treatment plan. Reinforced safety and treatment plan. Call light in reach.
[2018-09-18] MEDS: ASPIRIN EC 81 MG TABLET 243 MG PO (21:29)
[2018-09-18] MEDS: MONTELUKAST 10 MG TABLET PO (22:08)
[2018-09-19 00:48] VITALS: BP 126/73; PULSE 89; RESP 22; TEMP 36.6; O2SAT 98
[2018-09-19] MEDS: CEFTRIAXONE 2 GM/50 ML FROZ.PIGGY IV (01:32)
[2018-09-19] MEDS: SODIUM CHLORIDE 0.9% FLUSH 10 ML IV ×2 (02:16→09:17)
[2018-09-19 04:52] VITALS: BP 113/68; PULSE 79; RESP 19; TEMP 36.1; O2SAT 96
[2018-09-19 05:06] LABS: Add Manual Diff / Slide Review NO; Basophils Absolute Auto 100 /uL (0-100); Eosinophils Absolute Auto 300 /uL (0-450); Eosinophils Percent Auto 4.2 % (2-4); Hematocrit 26.5 % (41-53); Hemoglobin 8.9 g/dL (13.5-17.5); Lymphocytes Absolute Auto 1400 /uL (1100-4500); Lymphocytes Percent Auto 19.9 % (25-40); Mean Corpuscular HGB Conc 33.5 % (30-36); Mean Corpuscular Hemoglobin 28.4 PG (26-34); Mean Corpuscular Volume 84.8 fL (80-100); Monocytes Absolute Auto 600 /uL (0-900); Monocytes Percent Auto 8.9 % (3-14); Neutrophils Absolute Auto 4500 /uL (1500-7000); Platelet Count 318 X10^3/uL (150-400); Red Blood Cell Count 3.13 X10^6/uL (4.5-5.9); Red Cell Distribution Width 17.3 % (11.6-14.8); White Blood Cell Count 6.8 X10^3/uL (4.5-11.0)
[2018-09-19 05:09] LABS: BUN Creatinine Ratio 20.8 (6-22); Blood Urea Nitrogen 25 mg/dL (9-20); Calcium 8.5 mg/dL (8.4-10.2); Carbon Dioxide 30 mmol/L (22-32); Chloride 101 mmol/L (98-107); Estimated Glomerular Filt Rate 58.6 mL/min (>60); Glucose 82 mg/dL (80-110); HEMOLYSIS < 15 (0-50); Potassium 4.1 mmol/L (3.4-5.1); Sodium 136 mmol/L (137-145)
[2018-09-19 05:21] LABS: INR 2.8 (0.9-1.3); Prothrombin Time 32.7 SECONDS (10.1-12.7)
[2018-09-19 07:50] VITALS: BP 118/75; PULSE 78; RESP 23; TEMP 37; O2SAT 97
[2018-09-19] MEDS: AMIODARONE 200 MG TABLET 400 MG PO (09:18)
[2018-09-19] MEDS: ROSUVASTATIN 10 MG TABLET 20 MG PO (09:18)
--- NOTE | 2018-09-19 11:09 | PT.IPTN ---
Current Diagnoses Hyperkalemia (09/18/18) Physical Therapy Treatment Note M2 PT-IP Current Condition Start: 09/18/18 12:12 Freq: NEEDED Status: Active Protocol: Document 09/18/18 11:00 HH (Rec: 09/18/18 12:32 HH [email or web address]) Physical Therapy Current Condition Current Condition Evaluation Date 09/18/18 Treatment Diagnosis Hyperkalemia, A-fib, impaired gait and activity tolerane Onset Date 09/18/18 Precautions Other Precautions Sternal precautions with pillow Weight Bearing Status Weight Bearing Status Weight Bear as Tolerated M3 PT-IP Subjective Start: 09/18/18 12:12 Freq: NEEDED Status: Active Protocol: Document 09/19/18 11:08 GGD (Rec: 09/19/18 11:09 GGD [id number]) Subjective Physical Therapy Visit Type Type Patient Refusal Notes Pt refused therapy. He states that he had therapy and will move around when he gets home. He doesn't need PT to tell him how to get out of bed.
--- NOTE | 2018-09-19 11:35 | PC.NURSE ---
pt preparing for d/c later this date with new rx for home infusion- denies pain, refused PT did get up and ambulate with this RN- labs improved and pt deneies pain
--- NOTE | 2018-09-19 12:42 | P.DS_ITS ---
History of Present Illness Date Patient Seen: 09/18/18 Chief complaint: ABN LABS - HIGH POTASSIUM Narrative: Written by Samir OVALLE: This is a 70-year-old male patient with history of hypertension, stroke, endocarditis status post aortic valve replacement BPH, GERD, bronchitis and hypercholesterolemia was referred to the ER today after routine laboratory monitoring found the patient had an elevated potassium of 6.4. The patient had been admitted to [facility] on July with a CVA. The patient was found to have an endocarditis with a vegetative heart valve and subsequently transferred to [facility] for treatment and aortic valve replacement and a CABG x2. The patient was discharged from [facility] on Friday, 1 week ago, and upon arriving felt unwell and presented to [facility] and was found to be in atrial fibrillation with rapid ventricular response. The patient was admitted to [facility] over the weekend. The patient was f ollowing up with routine laboratory monitoring with the finding of hyperkalemia. Upon arrival in the emergency department the patient was found to have potassium of 6.5. 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 While in the ER serial laboratory testing found potassium going from 6.5-6.6 to 6.8 despite interventions with Kayexalate, Lasix, albuterol and insulin with glucose. Ultimately, the potassium came down to 3.5 however the patient had a syncopal episode related to vasovagal in response to the Kayexalate. While in the ER the patient also had atrial fibrillation which which was converted with 10 mg of diltiazem. In revie w the [facility] records the patient was discharged on amiodarone 400 mg twice daily. It is unclear whether the patient got his p.m. dose of amiodarone. The patient reports symptoms of vertigo and dizziness manifesting with rapid movements or when riding in a car. He has not been treated for this condition. He otherwise denies headaches and reports no significant weakness or ataxia secondary to his stroke. He denies fevers or chills, nasal congestion or sore throat. Reports no cardiac chest pain though he has a median sternotomy which is healing cleanly without infection. He does have nausea associated with his vertigo but has not vomited. Prior to admission he had no complaints of diarrhea constipation. He has been able ambulate without assist devices. He has a healing graft donor site on the medial left leg. Discharge Providers Date of admission: 09/18/18 04:31 Discharge Date: 09/19/18 Primary care physician: Jona Mckeon MD Consults: 09/18/18 04:41 Consult to Discharge Planning Routine Comment: 09/18/18 06:59 Consult to Physical Therapy Evaluate & Treat Comment: Vertigo, s/p cva and cabg/avr Physician Instructions: Evaluate and Treat 09/18/18 07:00 Consult to Occupational Therapy Evaluate & Treat Comment: Vertigo, s/p cva and cabg/avr Physician Instructions: Evaluate and treat Discharge provider: Mary Ellen Car DO Summary Discharge Diagnosis: 1. Acute hyperkalemia, present on admission. Resolved. 2. Recent streptococcal endocarditis, present on admission. Active. 3. Paroxysmal atrial fibrillation, chronic, present on admission. Stable. 4. Acute supratherapeutic INR, present on admission. Resolved. 5. Acute on chronic vertigo, present on admission. Resolved. 6. Status post coronary artery bypass grafting and aortic valve replacement. 7. History of CVA, resolved Hospital Course: The patient is admitted to the hospital related to significant hyperkalemia initially resistant to treatment. Will require ongoing serial monitoring of potassium as well as glucose monitoring after insulin and glucose treatment. Due to the patient's complexity and high risk he is admitted to the ICU for continuous monitoring and frequent interventions. 1. Acute hyperkalemia, present on admission. Resolved. -Outpatient laboratory testing found the potassium to be 6.4 prompting referral to the hospital for treatment. -Patient has a PICC line to receive penicillin G 24,000,000 units per day. ER physician consulted with pharmacy patient has 1.68 mEq of potassium per 1 million units for a daily dose of 40 mEq. Discontinued penicillin G. Started ceftriaxone 2 g daily. -Treated with Kayexalate, Lasix 40 mg, albuterol nebulizers and insulin with glucose resulting in normalization of potassium. Stable at 4.1. 2. Recent streptococcal endocarditis, present on admission. Active. -Patient has been on penicillin G as noted above. -Patient had pansensitive strep bovis for which ceftriaxone 2 g daily was started in place of penicillin G as above. Continue IV home infusions until 09/29/2018. 3. Paroxysmal atrial fibrillation, chronic, present on admission. Stable. -Admitted to [facility] 1 week ago with new onset atrial fibrillation with rapid ventricular response. -Evaluated by Dr. Farmer who placed patient on amiodarone titration down to 200 over the next several weeks and warfarin. -Atrial fibrillation converted to sinus rhythm with a single dose of diltiazem 10 mg. -Will replete electrolytes as needed. 4. Acute supratherapeutic INR, present on admission. Resolved. -Initial INR 4.8. INR discharge 2.8. Resumed warfarin at 2.5 mg daily. Continue [facility]mad[facility] Clinic outpatient. -Patient has been taking warfarin 5 mg daily. Discharged on warfarin 2.5 mg daily due to interaction with amiodarone which is likely the reason he is super therapeutic. -Continued to monitor INR throughout hospitalization. 5. Acute on chronic vertigo, present on admission. Resolved. -Patient reports vertigo with rapid movements and producing nausea. -received meclizine 25 mg as needed for symptoms and Zofran as needed for terrence sea. 6. Status post coronary artery bypass grafting and aortic valve replacement. -The patient has discharged home and requires no assistive devices. -PT and OT evaluations declined by patient. 7. History of CVA, resolved -Patient with no evidence of residual neurological deficits. Exam Vital Signs (past 8 hours): - 09/19/18 04:52 09/19/18 07:50 Temperature 97.0 F L 98.6 F Pulse Rate 79 78 Respiratory Rate 19 23 Blood Pressure 113/68 118/75 Pulse Oximetry 96 97 Oxygen Delivery Method Room Air Oxygen Flow Rate 0 Narrative Exam Narrative: General: Elderly male with acute distress, well-developed, well-nourished, appropriately interactive. HEENT: Normocephalic, atraumatic. External ears without defect. Pupils equal, round, and reactive to light. Anicteric sclerae, moist conjunctivae, and no lid lag. Oropharynx free of erythema and cobble stoning with moist mucosa. Neck: Supple with full range of motion. No lymphadenopathy or thyromegaly. Cardiovascular: Regular rate and rhythm without murmurs, rubs, or gallops appreciated. Pulmonary: Clear to auscultation bilaterally without crackles, wheezes, or rhonchi. Normal respiratory effort with no use of accessory muscles. Abdomen: Soft, bowel sounds present, nontender, nondistended. No hepatosplenomegaly or masses appreciated. Extremities: No clubbing, cyanosis, or edema. Skin: Normal temperature, turgor, and texture; no rash, ulcers, or subcutaneous nodules appreciated. Neurological: Cranial nerves grossly intact. Psychiatric: Normal mood and affect. Alert and oriented to person, place, and time. Objective Labs Result Diagrams: 09/19/18 04:45 09/19/18 04:45 Labs: Laboratory Results - last 24 hr 09/19/18 09/19/18 09/19/18 04:45 04:45 04:45 WBC 6.8 RBC 3.13 L Hgb 8.9 L Hct 26.5 L MCV 84.8 MCH 28.4 MCHC 33.5 RDW 17.3 H Plt Count 318 Neut % (Auto) 66.0 Lymph % (Auto) 19.9 L Sandoval % (Auto) 8.9 Eos % (Auto) 4.2 H Baso % (Auto) 1.0 Neut # (Auto) 4500 Lymph # (Auto) 1400 Sandoval # (Auto) 600 Eos # (Auto) 300 Baso # (Auto) 100 PT 32.7 H D INR 2.8 H Sodium 136 L Potassium 4.1 Chloride 101 Carbon Dioxide 30 BUN 25 H Creatinine 1.20 Estimated GFR 58.6 L BUN/Creatinine Ratio 20.8 Glucose 82 Calcium 8.5 Discharge Plan Discharge Plan Patient Disposition: Home Discharge comment: You are being discharged home with home health for physical therapy and nursing needs. You will be on IV antibiotics with ceftriaxone 2 g daily through your infusion company until 09/29/2018. Your warfarin dose was adjusted (due to interaction with amiodarone) and decreased to 2.5 mg daily at bedtime due to interaction with warfarin. Please keep your follow-up appointment with Dr. Mckeon and have your INR checked at that time. Discharge Med Rec/Prescriptions Prescriptions: New ceftriaxone in dextrose,iso-os 2 gram/50 mL piggyback 2 gram IV DAILY Qty: 10 RF: 0 Continued aspirin 81 MG tablet,delayed release (DR/EC) 243 mg PO BEDTIME Qty: 30 RF: 0 fluticasone propionate 16 GM spray,suspension 1 spray Intranasal DAILY PRN (Reason: Congestion) Qty: 0 RF: 0 montelukast [Singulair] 10 mg tablet 10 mg PO DAILY RF: 0 albuterol sulfate [Ventolin HFA] 90 MCG/PUFF HFA aerosol inhaler 1 puff INH Q4HP PRN (Reason: Shortness Of Breath) RF: 0 amiodarone 200 mg Tablet 400 mg PO SEEINSTR RF: 0 rosuvastatin 20 mg Tablet 20 mg PO DAILY RF: 0 sildenafil (antihypertensive) 20 mg Tablet 20 mg PO DAILY PRN (Reason: Erectile Dysfunction) RF: 0 penicillin G pot in dextrose 1 dose Continuous IV Infusion DIRECTED RF: 0 Changed warfarin 5 mg Tablet 2.5 mg PO DAILY Qty: 0 RF: 0 Discontinued ibuprofen 800 mg Tablet 800 mg PO TID PRN (Reason: Pain (Scale Score 1-3)) RF: 0 Provider Discharge Instructions Diet: Diet as Tolerated, Low-fat, Low-sodium and Low-cholesterol Activity: Activity as tolerated. Discharge Data Primary Care Provider: Jona Mckeon Attending Provider: Samir Braden Admit Date/Time: 09/18/18 04:31 Discharges patient from system. Discharge Date/Time: 09/19/18 13:22 Quality VTE Deep Vein Thrombosis/Pulmonary Embolism Present on Admission: Yes
--- NOTE | 2018-09-19 13:53 | CM.DPC ---
DCP Cont: Confirmed with Shanika at [facility], that they do have his antibiotic, Ceftin, to cook pickled meat, pending his discharge. Let her know, would discuss at team rounds if patient is ready to discharge. Confirmed with hospitalist, Dr. Car, that patient can be discharged today. He will have his next dose of antibiotic tomorrow, since he is getting 1 gram daily. Originally had her sign a face to face for home health, to include therapy and nursing. When therapy went in to work with him, he declined therapy and services. Patient not homebound at this time as well. Let Dr. Randall know this. P: Patient is to go home today, and will resume antibiotics with [facility], for his Endocarditus. Jenn Abdi RN/[employer]
== END 2018-09-19 13:22 | disposition home or self-care (01) ==
LOC: ED 09-18 03:25 → ICU 09-18 04:32
PROVIDERS: Internal Medicine; Admitting Provider Nurse Practitioner Adult Health; Emergency Provider Emergency Medicine; Family Provider Family Medicine; PCP Family Medicine; Visit Provider Nurse Practitioner Adult Health
DX: E87.5 Hyperkalemia (principal); R42 Dizziness and giddiness; I48.91 Unspecified atrial fibrillation; I33.0 Acute and subacute infective endocarditis; B95.4 Other streptococcus as the cause of diseases classified elsewhere; Z87.891 Personal history of nicotine dependence; I10 Essential (primary) hypertension; E78.00 Pure hypercholesterolemia, unspecified; Z86.73 Personal history of transient ischemic attack (TIA), and cerebral infarction without residual deficits; Z95.1 Presence of aortocoronary bypass graft
CPT/HCPCS: 36415; 36591; 36592; 80048; 80053; 82962; 83735; 84132; 84484; 85025; 85610; 87797; 93005; 94640; 96365; 96375; 97163; 97166; 99285; G0378; J0696; J1642; J1940; J7613

== ENCOUNTER → 2018-10-23 15:09 | Outpatient (CLI) | payer MEDICARE, OTHER, SELFPAY ==
[2018-09-18 05:01] VITALS: BMI 22.5
--- NOTE | 2018-10-23 | DI.CT.S_ITS ---
PROCEDURE: CT HEAD/BRAIN WO CON INDICATIONS: ACUTE CONFUSION TECHNIQUE: Noncontrast 4.5 mm thick angled axial sections acquired from the foramen magnum to the vertex, with coronal and sagittal reformats. For radiation dose reduction, the following was used: automated exposure control, adjustment of mA and/or kV according to patient size. COMPARISON: [facility], MR, MR STROKE, 08/15/2018, 9:20. [facility], CT, CT HEAD/BRAIN WO CON, 08/14/2018, 14:57. FINDINGS: Image quality: Excellent. CSF spaces: Basal cisterns are patent. No extra-axial fluid collections. The ventricles are symmetric in size and shape. Brain: There is expected evolution of the previously seen right anterolateral temporal lobe infarction, with progression of volume loss and encephalomalacia. No findings of hemorrhagic conversion are seen. No new areas of infarction are detected. No intracranial bleeds or masses. There is cerebral volume loss for age, with resultant ventricular and sulcal prominence. There are periventricular and deep white matter chronic small vessel ischemic changes. There is intracranial internal carotid artery atherosclerosis. Skull and face: Calvarium and visualized facial bones appear intact, without suspicious lesions. Sinuses: Visualized sinuses and mastoids are clear. IMPRESSION: Expected evolution of this patient's known right lateral temporal lobe infarction. No findings of hemorrhagic conversion can be seen. Note is made of age-appropriate brain parenchymal volume loss and chronic small vessel ischemic changes. Dictated by: Porfirio Cesar M.D. on 10/23/2018 at 14:54 Approved by: Porfirio Cesar M.D. on 10/23/2018 at 14:57
== END ==
PROVIDERS: Family Provider Family Medicine; PCP Family Medicine; Visit Provider Family Medicine
DX: R41.0 Disorientation, unspecified (principal)
CPT/HCPCS: 70450

== ENCOUNTER → 2018-11-11 08:34 | Oncology outpatient (ONC) | payer MEDICARE, OTHER, SELFPAY ==
[2018-09-17 17:01] LABS: Add Manual Diff / Slide Review NO; Basophils Absolute Auto 100 /uL (0-100); Basophils Percent Auto 0.8 % (0-2); Eosinophils Absolute Auto 400 /uL (0-450); Hematocrit 27.2 % (41-53); Hemoglobin 9.1 g/dL (13.5-17.5); Lymphocytes Absolute Auto 1000 /uL (1100-4500); Lymphocytes Percent Auto 11.2 % (25-40); Mean Corpuscular HGB Conc 33.3 % (30-36); Mean Corpuscular Hemoglobin 28.5 PG (26-34); Mean Corpuscular Volume 85.6 fL (80-100); Monocytes Absolute Auto 700 /uL (0-900); Monocytes Percent Auto 7.6 % (3-14); Neutrophils Absolute Auto 6600 /uL (1500-7000); Neutrophils Percent Auto 75.4 % (50-75); Platelet Count 348 X10^3/uL (150-400); Red Blood Cell Count 3.18 X10^6/uL (4.5-5.9); Red Cell Distribution Width 17.4 % (11.6-14.8); White Blood Cell Count 8.7 X10^3/uL (4.5-11.0)
[2018-09-17 17:29] LABS: Sodium 136 mmol/L (137-145)
[2018-09-17 17:31] LABS: Carbon Dioxide 26 mmol/L (22-32); Chloride 101 mmol/L (98-107)
[2018-09-17 17:32] LABS: BUN Creatinine Ratio 23.6 (6-22); Blood Urea Nitrogen 26 mg/dL (9-20); Calcium 8.2 mg/dL (8.4-10.2); Estimated Glomerular Filt Rate > 60.0 mL/min (>60); Glucose 103 mg/dL (80-110); HEMOLYSIS < 15 (0-50)
--- NOTE | 2018-09-17 17:39 | PC.NURSE ---
Received critical K+ of 6.5. Pt's primary is Dr. Mckeon. Spoke with on-call provider, Dr. Kahn and reported result.
[2018-09-17 17:41] LABS: Potassium 6.5 mmol/L (3.4-5.1)
[2018-09-24 14:02] LABS: Add Manual Diff / Slide Review NO; Basophils Absolute Auto 100 /uL (0-100); Basophils Percent Auto 1.3 % (0-2); Eosinophils Absolute Auto 200 /uL (0-450); Eosinophils Percent Auto 3.6 % (2-4); Hematocrit 31.6 % (41-53); Hemoglobin 10.3 g/dL (13.5-17.5); Lymphocytes Absolute Auto 1200 /uL (1100-4500); Lymphocytes Percent Auto 20.1 % (25-40); Mean Corpuscular HGB Conc 32.7 % (30-36); Mean Corpuscular Hemoglobin 27.5 PG (26-34); Mean Corpuscular Volume 83.9 fL (80-100); Monocytes Absolute Auto 700 /uL (0-900); Monocytes Percent Auto 10.9 % (3-14); Neutrophils Absolute Auto 3800 /uL (1500-7000); Neutrophils Percent Auto 64.1 % (50-75); Platelet Count 313 X10^3/uL (150-400); Red Blood Cell Count 3.77 X10^6/uL (4.5-5.9); Red Cell Distribution Width 16.6 % (11.6-14.8)
[2018-09-24 14:08] LABS: INR 1.5 (0.9-1.3); Prothrombin Time 17.5 SECONDS (10.1-12.7)
[2018-09-24 14:48] LABS: BUN Creatinine Ratio 18.3 (6-22); Blood Urea Nitrogen 22 mg/dL (9-20); Calcium 9.2 mg/dL (8.4-10.2); Carbon Dioxide 27 mmol/L (22-32); Chloride 101 mmol/L (98-107); Estimated Glomerular Filt Rate 58.6 mL/min (>60); Glucose 110 mg/dL (80-110); HEMOLYSIS < 15 (0-50); Potassium 4.2 mmol/L (3.4-5.1); Sodium 138 mmol/L (137-145)
[2018-10-01 16:03] LABS: Add Manual Diff / Slide Review NO; Basophils Absolute Auto 100 /uL (0-100); Basophils Percent Auto 0.9 % (0-2); Eosinophils Absolute Auto 500 /uL (0-450); Eosinophils Percent Auto 7.9 % (2-4); Hematocrit 30.4 % (41-53); Hemoglobin 10.1 g/dL (13.5-17.5); Lymphocytes Absolute Auto 1000 /uL (1100-4500); Lymphocytes Percent Auto 15.5 % (25-40); Mean Corpuscular HGB Conc 33.2 % (30-36); Mean Corpuscular Hemoglobin 27.1 PG (26-34); Mean Corpuscular Volume 81.6 fL (80-100); Monocytes Absolute Auto 500 /uL (0-900); Monocytes Percent Auto 8.6 % (3-14); Neutrophils Absolute Auto 4100 /uL (1500-7000); Neutrophils Percent Auto 67.1 % (50-75); Platelet Count 189 X10^3/uL (150-400); Red Blood Cell Count 3.72 X10^6/uL (4.5-5.9); Red Cell Distribution Width 16.4 % (11.6-14.8); White Blood Cell Count 6.1 X10^3/uL (4.5-11.0)
[2018-10-01 16:06] VITALS: BP 116/73; PULSE 69; RESP 16; TEMP 36.6; O2SAT 96
[2018-10-01 16:15] LABS: Alanine Aminotransferase 25 IU/L (21-72); Albumin 3.8 g/dL (3.5-5.0); Alkaline Phosphatase 82 U/L (38-126); Aspartate Aminotransferase 24 IU/L (17-59); BUN Creatinine Ratio 29.2 (6-22); Bilirubin Total 0.3 mg/dL (0.2-1.3); Blood Urea Nitrogen 35 mg/dL (9-20); Carbon Dioxide 28 mmol/L (22-32); Chloride 102 mmol/L (98-107); Estimated Glomerular Filt Rate 58.6 mL/min (>60); Globulin 3.9 g/dL (1.7-4.1); Glucose 125 mg/dL (80-110); HEMOLYSIS < 15 (0-50); Potassium 4.6 mmol/L (3.4-5.1); Sodium 137 mmol/L (137-145); Total Protein 7.7 g/dL (6.3-8.2)
== END ==
PROVIDERS: Family Provider Family Medicine; PCP Family Medicine; Visit Provider Nurse Practitioner Acute Care
DX: I33.0 Acute and subacute infective endocarditis (principal); B95.4 Other streptococcus as the cause of diseases classified elsewhere
CPT/HCPCS: 36591; 80048; 80053; 85025; 85610

== ENCOUNTER → 2020-01-24 08:31 | Outpatient (CLI) | payer MEDICARE, OTHER, SELFPAY ==
[2018-09-18 05:01] VITALS: BMI 22.5
[2020-01-24 12:34] LABS: Add Manual Diff / Slide Review NO; Basophils Absolute Auto 0 /uL (0-100); Basophils Percent Auto 0.5 % (0-2); Eosinophils Absolute Auto 400 /uL (0-450); Eosinophils Percent Auto 6.2 % (2-4); Hematocrit 41.5 % (41-53); Hemoglobin 13.9 g/dL (13.5-17.5); Lymphocytes Absolute Auto 1600 /uL (1100-4500); Mean Corpuscular HGB Conc 33.5 % (30-36); Mean Corpuscular Hemoglobin 28.4 PG (26-34); Mean Corpuscular Volume 84.7 fL (80-100); Monocytes Absolute Auto 500 /uL (0-900); Monocytes Percent Auto 7.8 % (3-14); Neutrophils Absolute Auto 3900 /uL (1500-7000); Neutrophils Percent Auto 60.5 % (50-75); Platelet Count 170 X10^3/uL (150-400); Red Cell Distribution Width 13.8 % (11.6-14.8); White Blood Cell Count 6.5 X10^3/uL (4.5-11.0)
[2020-01-24 13:09] LABS: Alanine Aminotransferase 25 IU/L (<50); Albumin 4.4 g/dL (3.5-5.0); Albumin Globulin Ratio 1.3 (1.0-2.8); Alkaline Phosphatase 75 U/L (38-126); Aspartate Aminotransferase 30 IU/L (17-59); BUN Creatinine Ratio 24.5 (6-22); Bilirubin Total 0.6 mg/dL (0.2-1.3); Blood Urea Nitrogen 24 mg/dL (9-20); Calcium 9.8 mg/dL (8.4-10.2); Carbon Dioxide 29 mmol/L (22-32); Chloride 105 mmol/L (98-107); Cholesterol 131 mg/dL (140-199); Estimated Glomerular Filt Rate > 60.0 mL/min (>60); Globulin 3.3 g/dL (1.7-4.1); Glucose 88 mg/dL (80-110); HDL Cholesterol 58 mg/dL (40-60); HEMOLYSIS < 15 (0-50); LDL Cholesterol Calculated 55 mg/dL (<100); Potassium 4.7 mmol/L (3.4-5.1); Sodium 139 mmol/L (137-145); Total Protein 7.7 g/dL (6.3-8.2); Triglycerides 89 mg/dL (35-150)
== END ==
PROVIDERS: Family Provider Family Medicine; PCP Family Medicine; Referring Provider Family Medicine; Visit Provider Family Medicine
DX: I10 Essential (primary) hypertension (principal); I25.10 Atherosclerotic heart disease of native coronary artery without angina pectoris; N40.1 Benign prostatic hyperplasia with lower urinary tract symptoms; Z12.5 Encounter for screening for malignant neoplasm of prostate
CPT/HCPCS: 36415; 80053; 80061; 85025; G0103

== ENCOUNTER → 2020-10-19 16:10 | Outpatient (CLI) | payer MEDICARE, OTHER, SELFPAY ==
[2018-09-18 05:01] VITALS: BMI 22.5
--- NOTE | 2020-10-19 | DI.MRI.S_ITS ---
PROCEDURE: MR HEAD/BRAIN WO CON INDICATIONS: VERTIGO,BRAIN FOG,DYSMETRIA,HEADACHE TECHNIQUE: Non-contrast axial T1 spin echo, axial T2 fast spin echo, sagittal and axial FLAIR, coronal T2 fast spin echo, axial gradient echo, axial diffusion and ADC through the brain. COMPARISON: [facility], CT, CT HEAD/BRAIN WO CON, 10/23/2018, 15:14. [facility], CT, CT HEAD WITHOUT CONTRAST, 09/11/2018, 19:53. [facility], MR, MR STROKE, 08/15/2018, 9:20. FINDINGS: Image quality: Excellent. CSF spaces: Ventricles appear symmetric in size and shape. Basal cisterns are patent. No extra-axial fluid collections. Brain: No intracranial bleeds or mass effects. There is mild cerebral volume loss for age. There are mild periventricular and deep white matter chronic small vessel ischemic changes. Brainstem appears normal. Diffusion-weighted images show no acute ischemic insults. Chronic infarct involving right temporal lobe and right insula with laminar necrosis and surrounding gliosis. Right temporal/insula infarct has undergone expected evolution in the interval since prior MRI obtained August 15, 2018. Normal intravascular flow voids are present. Skull and face: Calvarial bone marrow is normal in signal. Orbits are normal. Sinuses: Postsurgical changes compatible prior functional endoscopic sinus surgery. Mild mucosal thickening in the right maxillary sinus and the sphenoid sinuses.. 2.4 x 1.2 centimeter left maxillary sinus polyp. The mastoids are clear. IMPRESSION: 1. No acute intracranial disease process. 2. No areas of acute infarction. 3. Chronic right temporal lobe and right insula infarct. 4. Mild, diffuse cerebral volume loss. 5. Mild periventricular and subcortical white matter chronic microvascular ischemic change. Dictated by: Marychuy Lowe MD, PhD on 10/19/2020 at 17:26 Approved by: Marychuy Lowe MD, PhD on 10/19/2020 at 17:33
--- NOTE | 2020-10-19 | DI.MRI.S_ITS ---
PROCEDURE: MR ANGIO NECK W CON INDICATIONS: VERTIGO,BRAIN FOG,DYSMETRIA,HEADACHE TECHNIQUE: Axial and sagittal TruFISP through the neck. Coronal dynamic MRA after the administration of contrast in the arterial and venous phases, with rotating 3-dimensional maximum intensity projection (MIP) reformats constructed from subtraction images. COMPARISON: [facility], MR, MR STROKE, 08/15/2018, 9:20. [facility], CT, CT HEAD/BRAIN WO CON, 10/23/2018, 15:14. [facility], MR, MR ANGIO HEAD WO CON, 10/19/2020, 16:39. [facility], MR, MR HEAD/BRAIN WO CON, 10/19/2020, 16:39. FINDINGS: Image quality: Excellent. Carotid system: Great vessels demonstrate a conventional anatomy as they arise from the aortic arch. The origins of the common carotid arteries appear normal. The calibers and courses of the common carotid arteries are likewise normal. The carotid bifurcations appear normal bilaterally. The internal carotid arteries are widely patent up to the [employer]. The internal carotid arteries demonstrate tortuosity, right worse than left. Posterior circulation: The origins of the vertebral arteries are unremarkable. The more superior portions of the vertebral arteries demonstrate normal course and caliber. Vertebral arteries join to form a normal appearing basilar artery. Miscellaneous: Subclavian arteries are patent throughout. Pre-contrast images through the neck demonstrate no soft tissue abnormalities. IMPRESSION: Within the arteries of the neck, no hemodynamically significant stenosis can be seen. Tortuous internal carotid arteries noted. Any quantitative measurements of stenosis were performed using NASCET criteria. Dictated by: Porfirio Cesar M.D. on 10/19/2020 at 18:24 Approved by: Porfirio Cesar M.D. on 10/19/2020 at 18:26
--- NOTE | 2020-10-19 | DI.MRI.S_ITS ---
PROCEDURE: MR ANGIO HEAD WO CON INDICATIONS: VERTIGO, BRAIN FOG,DYSMETRIA,HEADACHE TECHNIQUE: Noncontrast axial 3-D [id number] MR angiogram, with 3-dimensional maximum intensity projection (MIP) reformats of the internal carotid arteries and posterior circulation then performed. COMPARISON: [facility], MR, MR STROKE, 08/15/2018, 9:20. [facility], CT, CT HEAD/BRAIN WO CON, 10/23/2018, 15:14. [facility], MR, MR HEAD/BRAIN WO CON, 10/19/2020, 16:39. [facility], MR, MR ANGIO NECK W CON, 10/19/2020, 16:39. FINDINGS: Image quality: Excellent. Anterior circulation: Intracranial internal carotid arteries demonstrate normal size and intraluminal flow signal. The flow within the paired anterior cerebral arteries is normal and symmetric. The flow within the middle cerebral arteries is normal and symmetric. The anterior communicating artery is seen. No stenoses, occlusions, or aneurysms. Posterior circulation: Visualized portions of the vertebral arteries demonstrate normal caliber, and join to form a normal appearing basilar artery. The flow within the posterior cerebral arteries is normal and symmetric. No stenoses, occlusions, or aneurysms. IMPRESSION: No significant intracranial arterial abnormality is seen. Dictated by: Porfirio Cesar M.D. on 10/19/2020 at 18:22 Approved by: Porfirio Cesar M.D. on 10/19/2020 at 18:24
== END ==
PROVIDERS: Family Provider Family Medicine; PCP Family Medicine; Referring Provider Family Medicine; Visit Provider Family Medicine
DX: R42 Dizziness and giddiness (principal); F48.8 Other specified nonpsychotic mental disorders; R51.9 Headache, unspecified; Z86.73 Personal history of transient ischemic attack (TIA), and cerebral infarction without residual deficits
CPT/HCPCS: 70544; 70548; 70551; A9579

== ENCOUNTER → 2021-04-30 10:20 | Outpatient (CLI) | payer MEDICARE, OTHER, SELFPAY ==
[2018-09-18 05:01] VITALS: BMI 22.5
[2021-04-30 11:36] LABS: Add Manual Diff / Slide Review NO; Basophils Absolute Auto 0 /uL (0-100); Basophils Percent Auto 0.4 % (0-2); Eosinophils Absolute Auto 500 /uL (0-450); Hematocrit 39.7 % (41-53); Hemoglobin 13.5 g/dL (13.5-17.5); Lymphocytes Absolute Auto 1500 /uL (1100-4500); Lymphocytes Percent Auto 22.8 % (25-40); Mean Corpuscular Hemoglobin 28.7 PG (26-34); Mean Corpuscular Volume 84.6 fL (80-100); Monocytes Absolute Auto 600 /uL (0-900); Monocytes Percent Auto 8.4 % (3-14); Neutrophils Absolute Auto 4000 /uL (1500-7000); Neutrophils Percent Auto 61.4 % (50-75); Platelet Count 170 X10^3/uL (150-400); Red Blood Cell Count 4.69 X10^6/uL (4.5-5.9); Red Cell Distribution Width 13.8 % (11.6-14.8); White Blood Cell Count 6.6 X10^3/uL (4.5-11.0)
[2021-04-30 12:46] LABS: Alanine Aminotransferase 16 IU/L (<50); Albumin 3.9 g/dL (3.5-5.0); Albumin Globulin Ratio 1.3 (1.0-2.8); Alkaline Phosphatase 61 U/L (38-126); Aspartate Aminotransferase 22 IU/L (17-59); BUN Creatinine Ratio 20.9 (6-22); Bilirubin Total 0.5 mg/dL (0.2-1.3); Blood Urea Nitrogen 23 mg/dL (9-20); Calcium 9.5 mg/dL (8.4-10.2); Carbon Dioxide 31 mmol/L (22-32); Chloride 102 mmol/L (98-107); Cholesterol 107 mg/dL (140-199); Estimated Glomerular Filt Rate > 60.0 mL/min (>60); Glucose 76 mg/dL (80-110); HDL Cholesterol 47 mg/dL (40-60); HEMOLYSIS < 15 (0-50); LDL Cholesterol Calculated 46 mg/dL (<100); Potassium 4.9 mmol/L (3.4-5.1); Sodium 138 mmol/L (137-145); Total Protein 6.9 g/dL (6.3-8.2); Triglycerides 72 mg/dL (35-150)
== END ==
PROVIDERS: Family Provider Family Medicine; PCP Family Medicine; Referring Provider Family Medicine; Visit Provider Family Medicine
DX: I10 Essential (primary) hypertension (principal)
CPT/HCPCS: 36415; 80053; 80061; 85025

== ENCOUNTER → 2022-04-24 07:00 | Outpatient (CLI) | payer MEDICARE, OTHER, SELFPAY ==
[2018-09-18 05:01] VITALS: BMI 22.5
[2022-04-24 07:56] LABS: Add Manual Diff / Slide Review NO; Basophils Absolute Auto 0 /uL (0-100); Basophils Percent Auto 0.5 % (0-2); Eosinophils Absolute Auto 600 /uL (0-450); Eosinophils Percent Auto 10.2 % (2-4); Hematocrit 41.4 % (41-53); Hemoglobin 13.9 g/dL (13.5-17.5); Lymphocytes Absolute Auto 1600 /uL (1100-4500); Lymphocytes Percent Auto 28.5 % (25-40); Mean Corpuscular HGB Conc 33.5 % (30-36); Mean Corpuscular Hemoglobin 28.8 PG (26-34); Mean Corpuscular Volume 86.1 fL (80-100); Monocytes Absolute Auto 400 /uL (0-900); Monocytes Percent Auto 7.9 % (3-14); Neutrophils Absolute Auto 2900 /uL (1500-7000); Neutrophils Percent Auto 52.9 % (50-75); Platelet Count 148 X10^3/uL (150-400); Red Blood Cell Count 4.81 X10^6/uL (4.5-5.9); Red Cell Distribution Width 13.7 % (11.6-14.8); White Blood Cell Count 5.6 X10^3/uL (4.5-11.0)
[2022-04-24 08:25] LABS: Alanine Aminotransferase 22 IU/L (<50); Albumin 3.9 g/dL (3.5-5.0); Albumin Globulin Ratio 1.1 (1.0-2.8); Alkaline Phosphatase 75 U/L (38-126); Aspartate Aminotransferase 24 IU/L (17-59); BUN Creatinine Ratio 23.6 (6-22); Bilirubin Total 0.4 mg/dL (0.2-1.3); Blood Urea Nitrogen 26 mg/dL (9-20); Carbon Dioxide 30 mmol/L (22-32); Chloride 104 mmol/L (98-107); Cholesterol 120 mg/dL (140-199); Estimated Glomerular Filt Rate > 60 mL/min (>60); Globulin 3.4 g/dL (1.7-4.1); Glucose 87 mg/dL (80-110); HDL Cholesterol 53 mg/dL (40-60); HEMOLYSIS < 15 (0-50); LDL Cholesterol Calculated 54 mg/dL (<100); Potassium 4.5 mmol/L (3.4-5.1); Sodium 140 mmol/L (137-145); Total Protein 7.3 g/dL (6.3-8.2); Triglycerides 63 mg/dL (35-150)
[2022-04-24 08:54] LABS: Prostate Specific Antigen 0.857 ng/mL (0.10-4.00)
== END ==
PROVIDERS: Family Provider Family Medicine; PCP Family Medicine; Referring Provider Family Medicine; Visit Provider Family Medicine
DX: I10 Essential (primary) hypertension (principal); N40.1 Benign prostatic hyperplasia with lower urinary tract symptoms; E78.00 Pure hypercholesterolemia, unspecified
CPT/HCPCS: 36415; 80053; 80061; 84153; 85025

== ENCOUNTER → 2023-09-23 06:54 | Outpatient (CLI) | payer MEDICARE, OTHER, SELFPAY ==
[2018-09-18 05:01] VITALS: BMI 22.5
[2023-09-23 08:17] LABS: Add Manual Diff / Slide Review NO; Basophils Absolute Auto 0 /uL (0-100); Basophils Percent Auto 0.7 % (0-2); Eosinophils Absolute Auto 500 /uL (0-450); Eosinophils Percent Auto 9.2 % (2-4); Hematocrit 39.6 % (41-53); Hemoglobin 13.2 g/dL (13.5-17.5); Lymphocytes Absolute Auto 1500 /uL (1100-4500); Lymphocytes Percent Auto 29.4 % (25-40); Mean Corpuscular HGB Conc 33.4 % (30-36); Mean Corpuscular Hemoglobin 28.2 PG (26-34); Mean Corpuscular Volume 84.3 fL (80-100); Monocytes Absolute Auto 400 /uL (0-900); Neutrophils Absolute Auto 2800 /uL (1500-7000); Neutrophils Percent Auto 52.7 % (50-75); Platelet Count 146 X10^3/uL (150-400); Red Cell Distribution Width 14.5 % (11.6-14.8); White Blood Cell Count 5.2 X10^3/uL (4.5-11.0)
[2023-09-23 08:50] LABS: Alanine Aminotransferase 20 IU/L (<50); Albumin 3.7 g/dL (3.5-5.0); Albumin Globulin Ratio 1.1 (1.0-2.8); Alkaline Phosphatase 65 U/L (38-126); Aspartate Aminotransferase 26 IU/L (17-59); BUN Creatinine Ratio 21.2 (6-22); Bilirubin Total 0.6 mg/dL (0.2-1.3); Blood Urea Nitrogen 24 mg/dL (9-20); Calcium 8.9 mg/dL (8.4-10.2); Carbon Dioxide 30 mmol/L (22-32); Chloride 107 mmol/L (98-107); Cholesterol 113 mg/dL (140-199); Estimated Glomerular Filt Rate > 60 mL/min (>60); Globulin 3.3 g/dL (1.7-4.1); Glucose 81 mg/dL (80-110); HDL Cholesterol 52 mg/dL (40-60); HEMOLYSIS < 15 (0-50); LDL Cholesterol Calculated 47 mg/dL (<100); Potassium 4.5 mmol/L (3.4-5.1); Sodium 138 mmol/L (137-145); Triglycerides 69 mg/dL (35-150)
[2023-09-23 09:16] LABS: Prostate Specific Antigen 0.807 ng/mL (0.10-4.00)
== END ==
PROVIDERS: Family Provider Family Medicine; PCP Family Medicine; Referring Provider Family Medicine; Visit Provider Family Medicine
DX: I10 Essential (primary) hypertension (principal); N40.1 Benign prostatic hyperplasia with lower urinary tract symptoms; E78.00 Pure hypercholesterolemia, unspecified
CPT/HCPCS: 36415; 80053; 80061; 84153; 85025

== ENCOUNTER → 2024-12-03 09:18 | Outpatient (CLI) | payer MEDICARE, OTHER, SELFPAY ==
[2018-09-18 05:01] VITALS: BMI 22.5
--- NOTE | 2024-12-03 09:20 | DI.RAD.S_ITS ---
PROCEDURE: XR CHEST 2V INDICATIONS: shortness of breath TECHNIQUE: 2 views of the chest were acquired. COMPARISON: None. FINDINGS: Surgical changes and devices: Median sternotomy wires and prosthetic heart valve are seen. Lungs and pleura: Mild pulmonary vascular congestion. No focal infiltrate. No pleural effusions or pneumothorax. Mediastinum: Mediastinal contours are normal. Heart size is normal. Bones and chest wall: No suspicious bony abnormalities. Soft tissues appear unremarkable. IMPRESSION: Mild pulmonary vascular congestion. No focal infiltrate, pleural effusion or pneumothorax. Dictated by: Lane Torres M.D. on 12/03/2024 at 9:42 Approved by: Lane Torres M.D. on 12/03/2024 at 9:43
== END ==
PROVIDERS: Family Provider Family Medicine; PCP Family Medicine; Referring Provider Nurse Practitioner Family; Visit Provider Nurse Practitioner Family
DX: R06.02 Shortness of breath (principal); R09.89 Other specified symptoms and signs involving the circulatory and respiratory systems
CPT/HCPCS: 71046